=== PATIENT | male | born 1980 | race Caucasian/White ===

== ENCOUNTER 2020-10-03 09:55 | Outpatient (REF) | payer BC, SELFPAY ==
[2020-10-03 10:33] LABS: MANUAL DIFF FLAG NO
[2020-10-03 10:48] LABS: Basophils Absolute Auto 0.1 X10*3/uL (0.0-0.2); Basophils Percent Auto 0.9 % (0-2); Eosinophils Absolute Auto 0.1 X10*3/uL (0.0-0.4); Eosinophils Percent Auto 1.5 % (0-4); Hematocrit 41.5 % (42-52); Hemoglobin 14.2 g/dl (14.0-18.0); Imm Gran Abs Auto 0.01 X10*3/uL (0.00-0.03); Imm Gran Pct Auto 0.2 % (0.0-0.4); Lymphocytes Absolute Auto 2.4 X10*3/uL (1.2-4.9); Lymphocytes Percent Auto 40.7 % (20-40); Mean Corpuscular HGB Conc 34.2 g/dl (31.0-36.0); Mean Corpuscular Hemoglobin 32.1 pg (27.0-33.0); Mean Corpuscular Volume 93.9 fL (80-98); Monocytes Absolute Auto 0.4 X10*3/uL (0.1-1.2); Monocytes Percent Auto 6.2 % (2-11); Neutrophils Percent Auto 50.5 % (45-73); Platelet Count 113 X10*3/uL (160-400); Red Blood Count 4.42 X10*6/uL (4.60-5.80); Red Cell Distribution Width 12.1 % (11.0-16.0); White Blood Count 5.9 X10*3/uL (4.8-10.8)
[2020-10-03 10:50] LABS: Glucose Urine UA NEG (NEG); Leukocyte Esterase Urine NEG (NEG); Nitrite Urine NEG (NEG); Specific Gravity - Urine >= 1.030 (1.005-1.025); Urine Blood NEG (NEG); Urine Ketones NEG (NEG); Urine Protein NEG (NEG-TRACE)
[2020-10-03 10:53] LABS: Appearance Urine CLEAR; Color Urine YELLOW
[2020-10-03 11:01] LABS: Creatinine Urine 140.25 mg/dL; Microalbum/Creatinine Ratio Ur 7.8 ug/mg cr
[2020-10-03 11:05] LABS: Alanine Aminotransferase 23 U/L (0-40); Albumin Level 4.7 g/dL (3.5-5.0); Alkaline Phosphatase 72 U/L (39-117); Anion Gap 13 (12-20); Aspartate Amino Transferase 22 U/L (5-37); Bilirubin Total 0.8 mg/dL (0.0-1.0); Blood Urea Nitrogen 22 mg/dL (9-16); Calcium 9.2 mg/dL (8.4-10.2); Carbon Dioxide 27 mmol/L (22-29); Chloride 103 mmol/L (96-108); Cholesterol 168 mg/dL; Estimated Glomerular Filt Rate > 60; Glucose Fasting 111 mg/dL (60-99); HDL Cholesterol 44 mg/dL; LDL Cholesterol Calculated 94 mg/dl; Potassium 4.7 mmol/l (3.3-5.1); Sodium 138 mmol/L (135-145); Total Protein 7.7 g/dL (6.5-8.0); Triglycerides 150 mg/dL
[2020-10-03 11:14] LABS: Estimated Average Glucose 100 mg/dL; Hemoglobin A1c % 5.1 %
[2020-10-03 11:24] LABS: Reflex LDLD? No
== END 2020-10-03 09:56 | disposition home or self-care (01) ==
LOC: HO.LAB 09:55
PROVIDERS: PCP Internal Medicine; Visit Provider Internal Medicine
DX: Z00.00 Encounter for general adult medical examination without abnormal findings (principal); E78.00 Pure hypercholesterolemia, unspecified; R73.03 Prediabetes; D69.6 Thrombocytopenia, unspecified
CPT/HCPCS: 36415; 80053; 80061; 81003; 82043; 83036; 85025

== ENCOUNTER → 2020-12-02 12:43 | Outpatient (BNVA) | payer BC, SELFPAY | PROVIDERS: PCP Internal Medicine; Visit Provider Internal Medicine ==

== ENCOUNTER 2020-12-31 11:02 | Outpatient (REF) | payer BC, SELFPAY ==
[2020-12-31 12:20] LABS: Blood Urea Nitrogen 19 mg/dL (9-16); Estimated Glomerular Filt Rate > 60
== END 2020-12-31 11:03 | disposition home or self-care (01) ==
LOC: HO.LNP 11:02
PROVIDERS: Visit Provider Internal Medicine
DX: R79.9 Abnormal finding of blood chemistry, unspecified (principal)
CPT/HCPCS: 82565; 84520

== ENCOUNTER → 2021-01-29 12:54 | Outpatient (BNVA) | payer BC, SELFPAY | PROVIDERS: PCP Internal Medicine; Visit Provider Internal Medicine ==

== ENCOUNTER 2021-02-04 09:15 | Outpatient (REF) | payer BC, SELFPAY ==
[2021-02-04 10:42] LABS: Prostate Specific Antigen 0.52 ng/mL (<0.05-4.0)
[2021-02-04 10:44] LABS: Hematocrit 41.3 % (42-52); Hemoglobin 14.2 g/dl (14.0-18.0)
[2021-02-05 20:01] LABS: Follicle Stimulating Hormone 7.7 mIU/mL (1.6-8.0); Lutenizing Hormone 6.4 mIU/mL (1.5-9.3)
[2021-02-05 21:12] LABS: Sex Hormone Binding Globulin 15 nmol/L (10-50)
[2021-02-08 21:31] LABS: Estradiol Ultra Sensitive 18 pg/mL (< OR = 29)
[2021-02-14 17:21] LABS: Testosterone, Free 36.6 pg/mL (35.0-155.0); Testosterone, Total 142 ng/dL (250-1100)
== END 2021-02-04 09:16 | disposition home or self-care (01) ==
LOC: HO.LAB 09:15
PROVIDERS: PCP Internal Medicine; Visit Provider Internal Medicine
DX: Z12.5 Encounter for screening for malignant neoplasm of prostate (principal); E23.0 Hypopituitarism
CPT/HCPCS: 36415; 82670; 83001; 83002; 84153; 84270; 84402; 84403; 85014; 85018

== ENCOUNTER 2021-02-14 14:58 | Outpatient (REF) | payer BC, SELFPAY | END 2021-02-14 14:59 | disposition home or self-care (01) | LOC: HO.LNP 14:58 | PROVIDERS: Visit Provider Internal Medicine | DX: A09 Infectious gastroenteritis and colitis, unspecified (principal) | CPT/HCPCS: 87045; 87046 ==

== ENCOUNTER 2021-04-18 10:42 | Outpatient (REF) | payer BC, SELFPAY ==
[2021-04-18 11:04] LABS: Estimated Average Glucose 100 mg/dL; Hemoglobin A1c % 5.1 %
[2021-04-18 11:07] LABS: Alanine Aminotransferase 19 U/L (0-40); Albumin Level 4.5 g/dL (3.5-5.0); Alkaline Phosphatase 73 U/L (39-117); Aspartate Amino Transferase 20 U/L (5-37); Bilirubin Direct 0.2 mg/dL (0.0-0.5); Bilirubin Total 0.4 mg/dL (0.0-1.0); Blood Urea Nitrogen 20 mg/dL (9-16); Cholesterol 162 mg/dL; Estimated Glomerular Filt Rate > 60; Glucose Fasting 111 mg/dL (60-99); HDL Cholesterol 39 mg/dL; LDL Cholesterol Calculated 90 mg/dl; Total Protein 7.5 g/dL (6.5-8.0); Triglycerides 167 mg/dL
[2021-04-18 11:57] LABS: Reflex LDLD? No
== END 2021-04-18 10:43 | disposition home or self-care (01) ==
LOC: HO.LNP 10:42
PROVIDERS: Visit Provider Internal Medicine
DX: R73.03 Prediabetes (principal); R79.9 Abnormal finding of blood chemistry, unspecified; E78.00 Pure hypercholesterolemia, unspecified
CPT/HCPCS: 80061; 80076; 82565; 82947; 83036; 84520

== ENCOUNTER → 2021-05-26 07:45 | Outpatient (BNVA) | payer BC, SELFPAY | PROVIDERS: PCP Internal Medicine; Visit Provider Internal Medicine ==

== ENCOUNTER 2021-08-12 10:31 | Outpatient (REF) | payer BC, SELFPAY ==
[2021-08-12 11:10] LABS: Blood Urea Nitrogen 18 mg/dL (9-16); Estimated Glomerular Filt Rate > 60
== END 2021-08-12 10:32 | disposition home or self-care (01) ==
LOC: HO.LNP 10:31
PROVIDERS: PCP Internal Medicine; Visit Provider Internal Medicine
DX: R79.9 Abnormal finding of blood chemistry, unspecified (principal)
CPT/HCPCS: 82565; 84520

== ENCOUNTER 2021-12-05 10:49 | Outpatient (REF) | payer BC, SELFPAY ==
[2021-12-05 10:54] LABS: MANUAL DIFF FLAG NO
[2021-12-05 11:18] LABS: Basophils Absolute Auto 0.1 X10*3/uL (0.0-0.2); Basophils Percent Auto 1.3 % (0-2); Eosinophils Absolute Auto 0.2 X10*3/uL (0.0-0.4); Eosinophils Percent Auto 2.5 % (0-4); Hematocrit 42.1 % (42.0-52.0); Hemoglobin 14.2 g/dl (14.0-18.0); Imm Gran Abs Auto 0.01 X10*3/uL (0.00-0.03); Imm Gran Pct Auto 0.1 % (0.0-0.4); Lymphocytes Absolute Auto 2.9 X10*3/uL (1.2-4.9); Lymphocytes Percent Auto 40.8 % (20-40); Mean Corpuscular HGB Conc 33.7 g/dl (31.0-36.0); Mean Corpuscular Hemoglobin 30.7 pg (27.0-33.0); Mean Corpuscular Volume 91.1 fL (80.0-98.0); Mean Platelet Volume 12.8 fL (9.4-12.4); Monocytes Absolute Auto 0.4 X10*3/uL (0.1-1.2); Monocytes Percent Auto 5.6 % (2-11); Neutrophils Absolute Auto 3.6 x10*3/uL (2.0-8.3); Neutrophils Percent Auto 49.7 % (45-73); Platelet Count 154 X10*3/uL (160-400); Red Blood Count 4.62 X10*6/uL (4.60-5.80); Red Cell Distribution Width 12.3 % (11.0-16.0); White Blood Count 7.2 X10*3/uL (4.8-10.8)
[2021-12-05 11:30] LABS: Appearance Urine CLEAR; Color Urine YELLOW; Glucose Urine UA NEG (NEG); Leukocyte Esterase Urine NEG (NEG); Nitrite Urine NEG (NEG); Specific Gravity - Urine >= 1.030 (1.005-1.025); Urine Blood NEG (NEG); Urine Ketones NEG (NEG); Urine Protein NEG (NEG-TRACE)
[2021-12-05 11:38] LABS: Alanine Aminotransferase 28 U/L (0-40); Albumin Level 4.3 g/dL (3.5-5.0); Alkaline Phosphatase 79 U/L (39-117); Anion Gap 10 (12-20); Aspartate Amino Transferase 24 U/L (5-37); Bilirubin Total 0.6 mg/dL (0.0-1.0); Blood Urea Nitrogen 15 mg/dL (9-16); Calcium 9.1 mg/dL (8.4-10.2); Carbon Dioxide 27 mmol/L (22-29); Chloride 105 mmol/L (96-108); Cholesterol 201 mg/dL; Estimated Glomerular Filt Rate > 60; Glucose Fasting 131 mg/dL (60-99); HDL Cholesterol 36 mg/dL; LDL Cholesterol Calculated 126 mg/dl; Potassium 4.2 mmol/L (3.3-5.1); Sodium 138 mmol/L (135-145); Total Protein 7.2 g/dL (6.5-8.0); Triglycerides 197 mg/dL
[2021-12-05 12:36] LABS: Estimated Average Glucose 120 mg/dL; Hemoglobin A1c % 5.8 %
[2021-12-05 12:38] LABS: Microalbum/Creatinine Ratio Ur 10.6 ug/mg cr
== END 2021-12-05 10:50 | disposition home or self-care (01) ==
LOC: HO.LNP 10:49
PROVIDERS: Visit Provider Internal Medicine
DX: Z00.00 Encounter for general adult medical examination without abnormal findings (principal); E78.00 Pure hypercholesterolemia, unspecified; E78.2 Mixed hyperlipidemia; R73.03 Prediabetes; D69.6 Thrombocytopenia, unspecified
CPT/HCPCS: 80053; 80061; 81003; 82043; 83036; 85025

== ENCOUNTER 2022-07-22 10:14 | Emergency (ER) | payer SELFPAY ==
--- NOTE | ~2022-07-22 | CT_ITS ---
EXAMINATION: CT HEAD WITHOUT CONTRAST CLINICAL INFORMATION: Headache. COMPARISON: Brain MRI 11/07/2019. TECHNIQUE: Contiguous axial imaging was performed from the skull base to vertex without intravenous administration of contrast. This CT examination was performed using dose optimization techniques as appropriate, variously including the following: *Automated exposure control *Adjustment of mA and/or kV according to patient size (this includes techniques or standardized protocols for targeted exams where dose is matched to indication/reason for exam; i.e. extremities or head) *Use of iterative reconstruction technique DLP: 827 mGy-cm FINDINGS: There is no acute intracranial hemorrhage or abnormal extra-axial collection. No intracranial mass effect or midline shift. Lateral and third ventricles are normal. No hydrocephalus. Gibbs-white matter projection is preserved and there is no evidence of acute territorial infarct. The calvarium and skull base are intact. Mastoid air cells and middle ear cavities are well aerated. No active paranasal sinus disease. CT/CT head/brain wo IV con IMPRESSION: Normal CT scan of the head.
[2022-07-22 10:50] VITALS: BP 131/86; PULSE 61; RESP 16; TEMP 36.3; O2SAT 97; BMI 39.9
[2022-07-22 11:03] LABS: Hematocrit 40.7 % (42.0-52.0); Mean Corpuscular HGB Conc 34.4 g/dl (31.0-36.0); Mean Corpuscular Hemoglobin 30.5 pg (27.0-33.0); Mean Corpuscular Volume 88.7 fL (80.0-98.0); Mean Platelet Volume 12.3 fL (9.4-12.4); Platelet Count 133 X10*3/uL (160-400); Red Blood Count 4.59 X10*6/uL (4.60-5.80); Red Cell Distribution Width 12.1 % (11.0-16.0); White Blood Count 8.1 X10*3/uL (4.8-10.8)
[2022-07-22 11:17] LABS: Anion Gap 14 (12-20); Blood Urea Nitrogen 12 mg/dL (9-16); Calcium 9.1 mg/dL (8.4-10.2); Carbon Dioxide 25 mmol/L (22-29); Chloride 104 mmol/L (96-108); Creatinine Clr Calc Pharmacy 159.1; Estimated Glomerular Filt Rate > 60; Glucose Random 127 mg/dL (60-115); Potassium 4.8 mmol/L (3.3-5.1); Sodium 138 mmol/L (135-145)
--- NOTE | 2022-07-22 15:07 | ED.HA ---
HPI - Headache General Chief Complaint: Headache Stated Complaint: Headache High Blood Pressure Time Seen by Provider: 07/22/22 15:05 Source: patient Mode of arrival: ambulatory Limitations: no limitations History of Present Illness HPI Narrative: Patient is a 42-year-old male with a PMHx of pituitary adenoma who presents to the ED with his for evaluation recurrent headaches. He states he gradually developed a pressure-like headache last week Wednesday that has not resolved since. He tells me he has been waking up with these headaches every morning and has taken Tylenol and Motrin which resolves his headache for most of the day until it returns the next morning. He reports a history of these headaches in the past and denies any changes in the character of his recent headaches, however is concerned that these headaches are not resolving as fast as they normally do. He went to his PCP on Wednesday who gave him Imitrex, which he tried without relief. His reports giving him a dose of her Excedrin which helped his symptoms. He reports some mild photophobia with his current headache and one episode of vomiting at the onset of the PACHECO. He denies any head injury, LOC, dizziness, weakness, CP, SOB, abdominal pain, N/V/D, urinary/bowel incontinence, and changes in gait. Pt also reports having some elevated BP readings at his workplace prior to his arrival here today. He denies any previous history of a HTN diagnosis. Related Data Home Medications Medication Instructions Recorded Confirmed atorvastatin 10 mg tablet 10 mg PO DAILY 12/02/20 05/26/21 citalopram 10 mg tablet 10 mg PO DAILY 05/26/21 05/26/21 Allergies Allergy/AdvReac Type Severity Reaction Status Date / Time No Known Allergies Allergy Verified 05/26/21 08:17 Review of Systems Review of Systems: Yes all other systems are reviewed and are negative Constitutional: Constitutional: Reports no additional constitutional complaints, Denies body ache(s), Denies chills, Denies fatigue, Denies fever(s), Reports headache(s) and Denies weakness Eyes: Eyes: Reports no additional eye complaints, Denies change in vision, Denies diplopia, Denies loss of peripheral vision, Denies loss of vision and Reports photophobia ENT: Reports system reviewed and no additional complaints, except as documented, Denies dizziness, Reports headache(s), Denies nasal congestion, Denies nasal discharge, Denies neck pain and Denies disequilibrium Cardiovascular: Cardiovascular: Reports no additional cardiovascular complaints, Denies chest pain, Denies leg edema and Denies dyspnea Respiratory: Respiratory: Reports no additional respiratory complaints, Denies cough and Denies dyspnea Gastrointestinal: Gastrointestinal: Reports no additional gastrointestinal complaints, Denies abdominal pain, Denies diarrhea, Denies nausea and Reports vomiting (one episode) Genitourinary: Genitourinary: Denies urinary incontinence Musculoskeletal: Musculoskeletal: Reports no additional musculoskeletal complaints, Denies back pain, Denies arthralgias, Denies joint swelling, Denies neck pain, Denies numbness and Denies tingling Integumentary/Breasts: Skin/Breast: Reports system reviewed and no additional complaints, except as docu and Denies rash Neurologic: Reports system reviewed and no additional complaints, except as documented, Denies Abnormal speech present, Denies dizziness, Reports headache(s), Denies focal weakness, Denies loss of vision, Denies numbness, Denies tingling, Denies paresthesias, Denies disequilibrium and Denies weakness Endocrine: Endocrine: Denies fatigue PMFSH Past Medical History Attestation statement: The following information was validated with the patient. Source: old records reviewed and nursing notes reviewed Medical History Gynecomastia Hypogonadotropic hypogonadism Pituitary adenoma Surgical History Hx of foot surgery Hx of hernia repair Hx of removal of cyst Family History Family History Father Unknown family medical history Mother Breast cancer Stroke Social History Social History Household Members: Family Alcohol intake: current Alcohol intake frequency: holidays/special occasions only Patient Tobacco Use Status: Never used Tobacco Advance Directives: No Advance Directives Information Provided: Yes Physical Exam Vital Signs: Vital Signs: Last Vital Signs Temp 98.8 F 07/22/22 15:08 Pulse 62 07/22/22 15:08 Resp 18 07/22/22 15:08 BP 144/83 H 07/22/22 15:08 Pulse Ox 98 07/22/22 15:08 O2 Del Method 07/22/22 15:08 BMI result Body Mass Index 39.9 Const: General: cooperative, healthy appearing, comfortable and no acute distress Orientation/consciousness: patient oriented x3 Limitations: no limitations HEENT: Head: Yes normal to inspection Ears: hearing grossly normal bilaterally and TM's normal bilaterally General nose exam: Normal external nose present Face and sinus: Yes normal facial exam Mouth: Normal oral and palatal mucosa present Throat: Yes posterior oropharynx normal Eyes: General: appearance normal, both eyes and all related structures Pupils: Equal, round and reactive pupils present Direct Ophthalmoscopy: photophobia Neck: Neck: Yes normal visual inspection, Yes full ROM, Yes no lymphadenopathy and Yes no meningeal signs Chest: Chest palpation & inspection: normal inspection of the chest Resp: Effort & Inspection: normal respiratory effort Auscultation: clear to auscultation bilaterally Cardio: Rate: regular rate Rhythm: regular rhythm Peripheral pulses: Peripheral pulses 2+ throughout GI: Inspection: Yes normal to inspection Palpation (GI): Soft to palpation and nontender Auscultation: normal bowel sounds Back/Spine/Pelvis: Thoracic/Lumbar Spine: thoracic and lumbar spine normal to inspection Skin: General skin exam: no rashes or lesions noted Neuro: General: patient oriented x3, no meningeal signs, no focal motor deficits and normal sensation to monofilament Cranial nerves: Yes CN's II-XII intact bilaterally, Yes Equal, round and reactive pupils present, Yes Nystagmus not present, Yes Midline tongue present and Yes Ability to bilaterally elevate shoulders present Cognition (Neuro): normal cognition Speech: No Abnormal speech present Gait exam (Neuro): Normal gait present Motor exam (neuro): 5/5 motor strength present throughout Sensory Exam: Normal double simultaneous stimulation for sensation Coordination: [id number] test normal and does not sway with eyes open Romberg Test: Negative Extrem: General: Yes normal to inspection Course Reevaluation(s) Reevaluation #1: Head CT negative for any acute findings, discussed findings with pt. Pt PACHECO resolved after receiving fluids and meds. Discussed with pt that symptoms and episode of elevated BP likely due to migraine and pain. Discussed avoiding migraine triggers such as stress, dehydration, foods and staying hydrated and well rested. Discussed taking Imitrex at the onset of his headaches for maximum effect. Pt tells me that he has an appointment with his PCP tomorrow, advised keeping that appointment and seeing them tomorrow for follow up. Time: 17:00 Medications Administered Discontinued Medications Generic Name Dose Route Start Last Admin Trade Name Mejia PRN Reason Stop Dose Admin Diphenhydramine HCl 25 mg 07/22/22 15:23 07/22/22 15:53 Diphenhydramine Hcl 50 Mg/Ml Vial IVPUSH 07/22/22 15:24 25 mg ONCE ONE Administration Sodium Chloride 2,000 mls @ 999 mls/hr 07/22/22 15:23 07/22/22 18:11 Ns IV 07/22/22 17:23 Infused .Q2H1M STA Infusion Ketorolac Tromethamine 30 mg 07/22/22 15:23 07/22/22 15:51 Ketorolac Tromethamine 30 Mg/Ml Vial IVPUSH 07/22/22 15:24 30 mg ONCE ONE Administration Metoclopramide HCl 10 mg 07/22/22 15:23 07/22/22 15:56 Metoclopramide Hcl 10 Mg/2 Ml Vial IVPUSH 07/22/22 15:24 10 mg ONCE ONE Administration MDM - Headache MDM Narrative Medical decision making narrative: Patient is a 42-year-old male with a PMHx of a premature and a pituitary adenoma who presents to the ED with his for evaluation recurrent headaches. He also reports having elevated BP readings prior to his arrival here. His last 2 BP readings here are 131/86 and 144/83. Pt has no hx of HTN, elevated readings most likely secondary to pain. Otherwise vital signs are WNL. PE benign. No focal neuro deficits noted. CBC and CMP WNL. History and exam not consistent with CVA, SAH, pseudotumor cerebrai, and meningitis. Given that the pt has been consistently waking every morning with these HAs, will order CT of head w/o contrast to r/o new mass/malignancy. History consistent with migraines, will give 2L of fluids with Reglan, Benadryl, and Toradol for symptoms. Will reassess symptoms after treatment and imaging. Medical Records Attestation: I reviewed the patient's medical records. Lab Data Attestation: I reviewed the patient's lab results. Result diagrams: 07/22/22 10:56 07/22/22 10:56 Labs: Lab Results 07/22/22 07/22/22 Range/Units 10:56 10:56 WBC 8.1 (4.8-10.8) X10*3/uL RBC 4.59 L (4.60-5.80) X10*6/uL Hgb 14.0 (14.0-18.0) g/dl Hct 40.7 L (42.0-52.0) % MCV 88.7 (80.0-98.0) fL MCH 30.5 (27.0-33.0) pg MCHC 34.4 (31.0-36.0) g/dl RDW 12.1 (11.0-16.0) % Plt Count 133 L (160-400) X10*3/uL MPV 12.3 (9.4-12.4) fL Absolute Nucleated RBC 0.000 (0.0-0.012) X10*3/uL Nucleated RBC % (auto) 0.0 (0.0-0.2) /100WBC Sodium 138 (135-145) mmol/L Potassium 4.8 (3.3-5.1) mmol/L Chloride 104 (96-108) mmol/L Carbon Dioxide 25 (22-29) mmol/L Anion Gap 14 (12-20) BUN 12 (9-16) mg/dL Creatinine 0.75 (0.5-1.4) mg/dL Estim Creat Clear Calc 159.1 Estimated GFR > 60 Random Glucose 127 H (60-115) mg/dL Calcium 9.1 (8.4-10.2) mg/dL Imaging Data CT scan - head: Attestation: I personally reviewed and interpreted this imaging study as follows: Radiologist's impression: [address] [address] [address] Scan Report Signed Patient: Kenny Mccormick MR#: [id number] : 1980 Acct:[id number] Age/Sex: 42 / M ADM Date: 07/22/22 Loc: .ED Attending Dr: Ordering Physician: Keyana Jenkins NP Date of Service: 07/22/22 Procedure(s): CT head/brain wo IV con Accession Number(s): [id number] cc: Keyana Jenkins NP~ EXAMINATION: CT HEAD WITHOUT CONTRAST CLINICAL INFORMATION: Headache.? COMPARISON: Brain MRI 11/07/2019. TECHNIQUE: Contiguous axial imaging was performed from the skull base to vertex without intravenous administration of contrast. This CT examination was performed using dose optimization techniques as appropriate, variously including the following: *Automated exposure control *Adjustment of mA and/or kV according to patient size (this includes techniques or standardized protocols for targeted exams where dose is matched to indication/reason for exam; i.e. extremities or head) *Use of iterative reconstruction technique DLP: 827 mGy-cm FINDINGS: There is no acute intracranial hemorrhage or abnormal extra-axial collection. No intracranial mass effect or midline shift. Lateral and third ventricles are normal. No hydrocephalus. Gibbs-white matter projection is preserved and there is no evidence of acute territorial infarct. The calvarium and skull base are intact. Mastoid air cells and middle ear cavities are well aerated. No active paranasal sinus disease. ? CT/CT head/brain wo IV con IMPRESSION: Normal CT scan of the head. Discharge Plan Discharge Clinical Impression: Migraine Patient Disposition: Home, Self-Care Additional Instructions: Avoid migraine triggers Increase fluids at home Get plenty of rest Avoid stress Keep your appointment tomorrow with your primary care doctor Take the Imitrex within 1 hour of headache developing Return for any worsening symptoms Prescriptions: No Action atorvastatin 10 mg tablet 10 mg PO DAILY citalopram 10 mg tablet 10 mg PO DAILY Referrals: Waldo Fabian MD [Primary Care Provider] - 1 day Interventions: ED Discharge Assessment Last Done: 07/22/22 18:12 Discharge Date/Time: 07/22/22 18:13
[2022-07-22 15:08] VITALS: BP 144/83; PULSE 62; RESP 18; TEMP 37.1; O2SAT 98
[2022-07-22] MEDS: Ketorolac Tromethamine 30 MG/ML VIAL IVPUSH (15:51)
[2022-07-22] MEDS: diphenhydrAMINE HCL 50 MG/ML VIAL 25 MG IVPUSH (15:53)
[2022-07-22] MEDS: Metoclopramide HCl 10 MG/2 ML VIAL IVPUSH (15:56)
[2022-07-22] MEDS: 0.9 % Sodium Chloride 2,000 ML 999 ML IV (16:04)
== END 2022-07-22 18:13 | disposition home or self-care (01) ==
PROVIDERS: Internal Medicine; Emergency Provider Emergency Medicine; PCP Internal Medicine
DX: G43.909 Migraine, unspecified, not intractable, without status migrainosus (principal); I10 Essential (primary) hypertension; Z79.899 Other long term (current) drug therapy
CPT/HCPCS: 36415; 70450; 80048; 85027; 96361; 96374; 96375; 99284; J1200; J1885; J2765

== ENCOUNTER 2022-08-28 10:46 | Outpatient (REF) | payer SELFPAY ==
[2022-08-28 12:05] LABS: Estimated Average Glucose 117 mg/dL; Hemoglobin A1c % 5.7 %
[2022-08-28 14:10] LABS: Alanine Aminotransferase 32 U/L (0-31); Albumin Level 4.3 g/dL (3.5-5.0); Alkaline Phosphatase 83 U/L (39-117); Aspartate Amino Transferase 28 U/L (5-31); Bilirubin Direct 0.2 mg/dL (0.0-0.5); Bilirubin Total 0.7 mg/dL (0.0-1.0); Cholesterol 166 mg/dL; Glucose Fasting 138 mg/dL (60-99); HDL Cholesterol 34 mg/dL; LDL Cholesterol Calculated 96 mg/dl; Total Protein 7.1 g/dL (6.5-8.0); Triglycerides 184 mg/dL
[2022-08-28 15:02] LABS: Reflex LDLD? No
== END 2022-08-28 10:47 | disposition home or self-care (01) ==
LOC: HO.LNP 10:46
PROVIDERS: Visit Provider Internal Medicine
DX: E78.00 Pure hypercholesterolemia, unspecified (principal); R73.03 Prediabetes
CPT/HCPCS: 80061; 80076; 82947; 83036

== ENCOUNTER 2022-12-15 11:38 | Outpatient (REF) | payer OTHER, SELFPAY ==
[2022-12-15 11:43] LABS: MANUAL DIFF FLAG NO
[2022-12-15 12:05] LABS: Basophils Absolute Auto 0.1 X10*3/uL (0.0-0.2); Basophils Percent Auto 1.2 % (0-2); Eosinophils Absolute Auto 0.3 X10*3/uL (0.0-0.4); Eosinophils Percent Auto 3.1 % (0-4); Hematocrit 41.7 % (42.0-52.0); Hemoglobin 14.1 g/dl (14.0-18.0); Imm Gran Abs Auto 0.02 X10*3/uL (0.00-0.03); Imm Gran Pct Auto 0.2 % (0.0-0.4); Lymphocytes Absolute Auto 2.9 X10*3/uL (1.2-4.9); Lymphocytes Percent Auto 33.9 % (20-40); Mean Corpuscular HGB Conc 33.8 g/dl (31.0-36.0); Mean Corpuscular Hemoglobin 30.5 pg (27.0-33.0); Mean Corpuscular Volume 90.1 fL (80.0-98.0); Monocytes Absolute Auto 0.5 X10*3/uL (0.1-1.2); Monocytes Percent Auto 5.6 % (2-11); Neutrophils Absolute Auto 4.7 x10*3/uL (2.0-8.3); Platelet Count 126 X10*3/uL (160-400); Red Blood Count 4.63 X10*6/uL (4.60-5.80); Red Cell Distribution Width 12.4 % (11.0-16.0); White Blood Count 8.4 X10*3/uL (4.8-10.8)
[2022-12-15 12:13] LABS: Estimated Average Glucose 126 mg/dL
[2022-12-15 12:21] LABS: Appearance Urine Clear; Color Urine Yellow; Glucose Urine UA Negative (Negative); Leukocyte Esterase Urine Negative (Negative); Nitrite Urine Negative (Negative); PH 5.5 (5.0-9.0); Urine Blood Negative (Negative); Urine Ketones Negative (Negative); Urine Protein Negative (Neg-Trace)
[2022-12-15 12:26] LABS: Bacteria Urine None Seen (None Seen); Hyaline Casts Urine 0-2 /LPF (0-2); RBC Urine 0-2 /HPF (0-2); Squamous Epithelial Cell Urine 0-2 /HPF (0-2); WBC Urine 0-5 /HPF (0-5)
[2022-12-15 12:28] LABS: Alanine Aminotransferase 34 U/L (0-40); Albumin Level 4.1 g/dL (3.5-5.0); Alkaline Phosphatase 94 U/L (39-117); Anion Gap 13 (12-20); Aspartate Amino Transferase 26 U/L (5-37); Bilirubin Total 0.4 mg/dL (0.0-1.0); Blood Urea Nitrogen 17 mg/dL (9-16); Calcium 8.9 mg/dL (8.4-10.2); Carbon Dioxide 24 mmol/L (22-29); Chloride 105 mmol/L (96-108); Cholesterol 167 mg/dL; Estimated Glomerular Filt Rate > 60; Glucose Fasting 130 mg/dL (60-99); HDL Cholesterol 34 mg/dL; LDL Cholesterol Calculated 79 mg/dl; PSA,Total (Free>4and<10) 0.46 ng/mL (0.00-4.00); Potassium 4.3 mmol/L (3.3-5.1); Sodium 138 mmol/L (135-145); Triglycerides 272 mg/dL
[2022-12-15 12:37] LABS: Creatinine Urine 121.45 mg/dL; Microalbum/Creatinine Ratio Ur 7.4 ug/mg cr
[2022-12-21 15:48] LABS: Testosterone, Free 20.1 pg/mL (35.0-155.0); Testosterone, Total 74 ng/dL (250-1100)
== END 2022-12-15 11:39 | disposition home or self-care (01) ==
LOC: HO.LNP 11:38
PROVIDERS: Visit Provider Internal Medicine
DX: Z00.00 Encounter for general adult medical examination without abnormal findings (principal); E78.00 Pure hypercholesterolemia, unspecified; R73.03 Prediabetes; E29.1 Testicular hypofunction; D69.6 Thrombocytopenia, unspecified; Z12.5 Encounter for screening for malignant neoplasm of prostate
CPT/HCPCS: 80053; 80061; 81001; 82043; 83036; 84153; 84402; 84403; 85025

== ENCOUNTER 2023-01-21 10:25 | Outpatient (REF) | payer SELFPAY ==
[2023-01-21 10:27] LABS: MANUAL DIFF FLAG NO
[2023-01-21 10:55] LABS: Basophils Absolute Auto 0.1 X10*3/uL (0.0-0.2); Basophils Percent Auto 1.3 % (0-2); Eosinophils Absolute Auto 0.2 X10*3/uL (0.0-0.4); Eosinophils Percent Auto 2.4 % (0-4); Imm Gran Abs Auto 0.02 X10*3/uL (0.00-0.03); Imm Gran Pct Auto 0.3 % (0.0-0.4); Lymphocytes Absolute Auto 3.1 X10*3/uL (1.2-4.9); Lymphocytes Percent Auto 39.5 % (20-40); Mean Corpuscular HGB Conc 34.1 g/dl (31.0-35.0); Mean Corpuscular Hemoglobin 30.6 pg (27.0-33.0); Mean Corpuscular Volume 89.7 fL (80.0-98.0); Mean Platelet Volume 12.9 fL (9.4-12.3); Monocytes Absolute Auto 0.5 X10*3/uL (0.1-1.2); Monocytes Percent Auto 6.7 % (2-11); Neutrophils Percent Auto 49.8 % (45-73); Platelet Count 152 X10*3/uL (160-400); Red Blood Count 4.57 X10*6/uL (4.20-5.50); Red Cell Distribution Width 12.4 % (11.0-16.0); White Blood Count 7.9 X10*3/uL (4.8-10.8)
== END 2023-01-21 10:26 | disposition home or self-care (01) ==
LOC: HO.LNP 10:25
PROVIDERS: Visit Provider Internal Medicine
DX: D69.6 Thrombocytopenia, unspecified (principal)
CPT/HCPCS: 85025

== ENCOUNTER → 2023-02-03 15:49 | Outpatient (BNVA) | payer OTHER, SELFPAY | PROVIDERS: PCP Internal Medicine; Visit Provider Internal Medicine Endocrinology, Diabetes & Metabolism ==

== ENCOUNTER 2023-04-15 15:58 | Outpatient (AMB) | payer OTHER, SELFPAY ==
--- NOTE | 2023-04-15 16:01 | MHC.OFFVIS ---
Intake Vital Signs 04/15/23 16:03 Height 5 ft 7 in Weight 272 lb 4.334 oz BMI 42.6 BP 110/62 Blood Pressure Location Lt femoral Position Sitting Pulse 80 Intake Visit Reasons: Hypogonadism Intake Note: Patient present for Hypogonadism follow up visit. 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 He was initially referred to us due to gynecomastia. Full lab eval revealed hypogonadotropic hypogonadism. At that time he did report difficulty conceiving for a few years. Did have semen analysis which he reports revealed low sperm counts. We discussed the diagnosis of hypogonadism, and the need for pituitary MRI as well as sleep study and full pituitary lab panel. These were all ordered, but he was subsequently lost to F/U. He then re-established care in late Sep 2019. Full Pituitary panel was assessed which revealed low am cortisol, and also hypogonadotropic hypogonadism. Labs 10/26/2019 ACTH 18, Cortisol 9.4, FS 5.1, LH 5.3, Total Testosterone 76, Free Testosterone 19.3. He underwent a cosyntropin stimulation test which was WNL with appropriate response. He subsequently had a pituitary MRI which revealed asymmetric pneumatization of the sphenoid sinus with asymmetric left downsloping of the pituitary gland, and deviation of the infundibulum slightly to the left. There was also deviation of the optic chiasm to the left. It appeared this pathology had been present since 2009. He was referred for formal visual field testing and also to Neurosurgeon Dr. Smitha Zimmer. Formal visual taylor were WNL, and Neurosurgery recommended no surgical intervention, and just surveillance MRI yearly. Repeat labs reveal low Total testosterone, with low normal SHBG, and Free testosterone WNL, though low normal. He reports good libido. Does have am erection and is able to achieve erection when desired. Unsure if he has RUPA. I did ask him to have a sleep study but he has not done this as of yet. Reports good sense of smell. He is not using any OTC supplements or herbs. Otherwise he has no complaints today. Pituitary MRI 11/07/2019: On the focused imaging of the sella, the floor of the bony sella is slightly downward and to the left secondary to asymmetric pneumatization of the sphenoid sinus. This results in some asymmetric left downsloping of the pituitary gland, and deviation of the infundibulum slightly to the left. This morphology is noted on the prior exams, as far back as 2009, and is not changed. No hypoenhancing lesions are seen within the substance of the pituitary gland to suggest underlying adenoma. The optic chiasm is also slightly deviated to the left. The suprasellar cistern is otherwise unremarkable. The cavernous sinuses are patent. Labs: Laboratory Tests 02/04/21 02/04/21 02/04/21 09:22 09:22 09:22 Hgb 14.2 Hct 41.3 L Creatinine Estimated GFR Triglycerides Cholesterol LDL Cholesterol, C alc HDL Cholesterol Prostate Specific Ag 0.52 FSH 7.7 Luteinizing Hormon e 6.4 Total Testosterone 142 L Fr Testosterone Di elly 36.6 Sex Hormone Bind G lob 15 04/18/21 Unknown Hgb Hct Creatinine 0.85 Estimated GFR > 60 Triglycerides 167 Cholesterol 162 LDL Cholesterol, C alc 90 HDL Cholesterol 39 Prostate Specific Ag FSH Luteinizing Hormon e Total Testosterone Fr Testosterone Di elly Sex Hormone Bind G lob More recently, his testosterone level 74 . No loss of libido. Some energy loss, Does snore but has sleep study next mo. No children. Not looking to father children . No osteoporotic fx Was diagnosed with sleep apnea . [facility] Medical History Gynecomastia Hypogonadotropic hypogonadism Pituitary adenoma Surgical History Hx of foot surgery Hx of hernia repair Hx of removal of cyst Family History Father Unknown family medical history Mother Breast cancer Stroke Social History Household Members: Family Alcohol intake: current Alcohol intake frequency: holidays/special occasions only Patient Tobacco Use Status: Never used Tobacco Physical Exam Vital Signs: Last Vital Signs Pulse 80 04/15/23 16:03 BP 110/62 04/15/23 16:03 BMI result Body Mass Index 42.6 Assessment & Plan Assessment & Plan (1) Hypogonadotropic hypogonadism: Code(s): E23.0 - Hypopituitarism Plan: This is a 42-year-old male with a history of secondary hypogonadism and gynecomastia with workup revealing structural pituitary problems but no mass. Plan is to check a ferritin level to complete the secondary workup rule out hemochromatosis. Discussed with patient testosterone replacement including use of oral versus transdermal versus intramuscular. Will also wait for patient to get placed on CPAP and bring a copy of the sleep study to me and then will return for possible initiation of testosterone Orders: Orders Ferritin Today E23.0 - Hypopituitarism Coding Level of Care Code Est Pt Level 3 (27761) Diagnoses Hypogonadotropic hypogonadism E23.0
[2023-04-15 16:03] VITALS: BP 110/62; PULSE 80; BMI 42.6
== END 2023-04-15 16:24 | disposition home or self-care (01) ==
PROVIDERS: PCP Internal Medicine; Visit Provider Internal Medicine Endocrinology, Diabetes & Metabolism
DX: E23.0 Hypopituitarism (principal)
CPT/HCPCS: 99213

== ENCOUNTER → 2023-04-15 15:58 | Outpatient (BNVA) | payer OTHER, SELFPAY | PROVIDERS: Visit Provider Internal Medicine Endocrinology, Diabetes & Metabolism ==

== ENCOUNTER 2023-05-21 08:12 | Outpatient (REF) | payer OTHER, SELFPAY ==
[2023-05-21 10:37] LABS: Ferritin 297 ng/mL (20-250)
== END 2023-05-21 08:13 | disposition home or self-care (01) ==
LOC: HO.LAB 08:12
PROVIDERS: PCP Internal Medicine; Visit Provider Internal Medicine Endocrinology, Diabetes & Metabolism
DX: E23.0 Hypopituitarism (principal)
CPT/HCPCS: 36415; 82728

== ENCOUNTER 2023-05-27 15:29 | Outpatient (AMB) | payer OTHER, SELFPAY ==
--- NOTE | 2023-05-27 15:30 | MHC.OFFVIS ---
Intake Vital Signs 05/27/23 15:31 Height 5 ft 7 in Weight 271 lb 13.279 oz BMI 42.6 BP 102/72 Blood Pressure Location Lt brachial Position Sitting Pulse 62 Pulse Source Pulse Oximeter Intake Visit Reasons: f/u hypogonadism/Confirmed Intake Note: Patient present for hypogonadism follow up visit. 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 He was initially referred to us due to gynecomastia. Full lab eval revealed hypogonadotropic hypogonadism. At that time he did report difficulty conceiving for a few years. Did have semen analysis which he reports revealed low sperm counts. We discussed the diagnosis of hypogonadism, and the need for pituitary MRI as well as sleep study and full pituitary lab panel. These were all ordered, but he was subsequently lost to F/U. He then re-established care in late Sep 2019. Full Pituitary panel was assessed which revealed low am cortisol, and also hypogonadotropic hypogonadism. Labs 10/26/2019 ACTH 18, Cortisol 9.4, FS 5.1, LH 5.3, Total Testosterone 76, Free Testosterone 19.3. He underwent a cosyntropin stimulation test which was WNL with appropriate response. He subsequently had a pituitary MRI which revealed asymmetric pneumatization of the sphenoid sinus with asymmetric left downsloping of the pituitary gland, and deviation of the infundibulum slightly to the left. There was also deviation of the optic chiasm to the left. It appeared this pathology had been present since 2009. He was referred for formal visual field testing and also to Neurosurgeon Dr. Smitha Zimmer. Formal visual taylor were WNL, and Neurosurgery recommended no surgical intervention, and just surveillance MRI yearly. Repeat labs reveal low Total testosterone, with low normal SHBG, and Free testosterone WNL, though low normal. He reports good libido. Does have am erection and is able to achieve erection when desired. Unsure if he has RUPA. I did ask him to have a sleep study but he has not done this as of yet. Reports good sense of smell. He is not using any OTC supplements or herbs. Otherwise he has no complaints today. Pituitary MRI 11/07/2019: On the focused imaging of the sella, the floor of the bony sella is slightly downward and to the left secondary to asymmetric pneumatization of the sphenoid sinus. This results in some asymmetric left downsloping of the pituitary gland, and deviation of the infundibulum slightly to the left. This morphology is noted on the prior exams, as far back as 2009, and is not changed. No hypoenhancing lesions are seen within the substance of the pituitary gland to suggest underlying adenoma. The optic chiasm is also slightly deviated to the left. The suprasellar cistern is otherwise unremarkable. The cavernous sinuses are patent. Labs: Laboratory Tests 02/04/21 02/04/21 02/04/21 09:22 09:22 09:22 Hgb 14.2 Hct 41.3 L Creatinine Estimated GFR Triglycerides Cholesterol LDL Cholesterol, C alc HDL Cholesterol Prostate Specific Ag 0.52 FSH 7.7 Luteinizing Hormon e 6.4 Total Testosterone 142 L Fr Testosterone Di elly 36.6 Sex Hormone Bind G lob 15 04/18/21 Unknown Hgb Hct Creatinine 0.85 Estimated GFR > 60 Triglycerides 167 Cholesterol 162 LDL Cholesterol, C alc 90 HDL Cholesterol 39 Prostate Specific Ag FSH Luteinizing Hormon e Total Testosterone Fr Testosterone Di elly Sex Hormone Bind G lob More recently, his testosterone level 74 . No loss of libido. Some energy loss, Does snore but has sleep study next mo. No children. Not looking to father children . No osteoporotic fx Was diagnosed with sleep apnea . [facility] Medical History Gynecomastia Hypogonadotropic hypogonadism Pituitary adenoma Surgical History Hx of foot surgery Hx of hernia repair Hx of removal of cyst Family History Father Unknown family medical history Mother Breast cancer Stroke Social History Household Members: Family Alcohol intake: current Alcohol intake frequency: holidays/special occasions only Patient Tobacco Use Status: Never used Tobacco Physical Exam Vital Signs: BMI result Body Mass Index 42.6 Assessment & Plan Assessment & Plan (1) Hypogonadotropic hypogonadism: Code(s): E23.0 - Hypopituitarism Plan: This is a 42-year-old male with a history of secondary hypogonadism and gynecomastia with workup revealing structural pituitary problems but no mass. Plan is to start intramuscular testosterone 100 mg Q weekly. Will try to get approval for subcutaneous testosterone Xyosted at same dose but if can not will do the intramuscular testosterone. One start testosterone will get peak and trough testosterone and CBC 6 weeks later. Went over side effects of testosterone including but not limited to DVT, polycythemia and rare risk of unmasking prostate cancer Orders: Orders Testosterone, Free/Total 6 Weeks E23.0 - Hypopituitarism Hematocrit 6 Weeks E23.0 - Hypopituitarism Testosterone, Free/Total 7 Weeks E23.0 - Hypopituitarism Hemoglobin 6 Weeks E23.0 - Hypopituitarism Medications: New testosterone enanthate (Xyosted) 100 mg (0.5 mL) subcut QWEEK 2 mL 5RF Coding Level of Care Code Est Pt Level 3 (72719) Diagnoses Hypogonadotropic hypogonadism E23.0
[2023-05-27 15:31] VITALS: BP 102/72; PULSE 62; BMI 42.6
== END 2023-05-27 16:02 | disposition home or self-care (01) ==
PROVIDERS: PCP Internal Medicine; Visit Provider Internal Medicine Endocrinology, Diabetes & Metabolism
DX: E23.0 Hypopituitarism (principal)
CPT/HCPCS: 99213

== ENCOUNTER → 2023-05-27 15:29 | Outpatient (BNVA) | payer OTHER, SELFPAY | PROVIDERS: PCP Internal Medicine; Visit Provider Internal Medicine Endocrinology, Diabetes & Metabolism ==

== ENCOUNTER 2023-07-01 12:28 | Outpatient (REF) | payer OTHER, SELFPAY ==
[2023-07-01 13:40] LABS: Cholesterol 211 mg/dL (<200); HDL Cholesterol 30 mg/dL (>40); Triglycerides 406 mg/dL (<150)
[2023-07-01 13:59] LABS: Alanine Aminotransferase 43 U/L (0-40); Albumin Level 4.1 g/dL (3.5-5.0); Alkaline Phosphatase 120 U/L (39-117); Aspartate Amino Transferase 33 U/L (5-37); Bilirubin Direct < 0.2 mg/dL (0.0-0.5); Bilirubin Total 0.2 mg/dL (0.0-1.0)
[2023-07-01 14:05] LABS: Reflex LDLD? Yes
[2023-07-02 09:19] LABS: LDL Cholesterol Direct 124 mg/dL (<100)
== END 2023-07-01 12:29 | disposition home or self-care (01) ==
LOC: HO.LNP 12:28
PROVIDERS: Visit Provider Internal Medicine
DX: E78.00 Pure hypercholesterolemia, unspecified (principal)
CPT/HCPCS: 80061; 80076; 83721

== ENCOUNTER 2023-08-19 13:32 | Outpatient (AMB) | payer OTHER, SELFPAY ==
--- NOTE | 2023-08-19 13:33 | MHC.OFFVIS ---
Intake Vital Signs 08/19/23 13:34 Height 5 ft 7 in Weight 272 lb 0.807 oz BMI 42.6 BP 120/70 Blood Pressure Location Lt brachial Position Sitting Pulse 61 Pulse Source Pulse Oximeter Intake Visit Reasons: hypogonadism/confirm Intake Note: Patient present for Hypogonadism follow up visit. Vending Machine Attendant Required: No Accompanied by: Self / Same As Patient Allergies No Known Allergies Allergy (Verified 08/19/23 13:39) HPI HPI Comments History of Present Illness Details 43 YO Male with PMHx HLD who is seen in F/U for hypogonadotropic hypogonadism and gynecomastia. He was initially referred to us due to gynecomastia. Full lab eval revealed hypogonadotropic hypogonadism. At that time he did report difficulty conceiving for a few years. Did have semen analysis which he reports revealed low sperm counts. We discussed the diagnosis of hypogonadism, and the need for pituitary MRI as well as sleep study and full pituitary lab panel. These were all ordered, but he was subsequently lost to F/U. He then re-established care in late Sep 2019. Full Pituitary panel was assessed which revealed low am cortisol, and also hypogonadotropic hypogonadism. Labs 10/26/2019 ACTH 18, Cortisol 9.4, FS 5.1, LH 5.3, Total Testosterone 76, Free Testosterone 19.3. He underwent a cosyntropin stimulation test which was WNL with appropriate response. He subsequently had a pituitary MRI which revealed asymmetric pneumatization of the sphenoid sinus with asymmetric left downsloping of the pituitary gland, and deviation of the infundibulum slightly to the left. There was also deviation of the optic chiasm to the left. It appeared this pathology had been present since 2009. He was referred for formal visual field testing and also to Neurosurgeon Dr. Smitha Zimmer. Formal visual taylor were WNL, and Neurosurgery recommended no surgical intervention, and just surveillance MRI yearly. Repeat labs reveal low Total testosterone, with low normal SHBG, and Free testosterone WNL, though low normal. He reports good libido. Does have am erection and is able to achieve erection when desired. Unsure if he has RUPA. I did ask him to have a sleep study but he has not done this as of yet. Reports good sense of smell. He is not using any OTC supplements or herbs. Otherwise he has no complaints today. Pituitary MRI 11/07/2019: On the focused imaging of the sella, the floor of the bony sella is slightly downward and to the left secondary to asymmetric pneumatization of the sphenoid sinus. This results in some asymmetric left downsloping of the pituitary gland, and deviation of the infundibulum slightly to the left. This morphology is noted on the prior exams, as far back as 2009, and is not changed. No hypoenhancing lesions are seen within the substance of the pituitary gland to suggest underlying adenoma. The optic chiasm is also slightly deviated to the left. The suprasellar cistern is otherwise unremarkable. The cavernous sinuses are patent. Labs: Laboratory Tests 02/04/21 02/04/21 02/04/21 09:22 09:22 09:22 Hgb 14.2 Hct 41.3 L Creatinine Estimated GFR Triglycerides Cholesterol LDL Cholesterol, C alc HDL Cholesterol Prostate Specific Ag 0.52 FSH 7.7 Luteinizing Hormon e 6.4 Total Testosterone 142 L Fr Testosterone Di elly 36.6 Sex Hormone Bind G lob 15 04/18/21 Unknown Hgb Hct Creatinine 0.85 Estimated GFR > 60 Triglycerides 167 Cholesterol 162 LDL Cholesterol, C alc 90 HDL Cholesterol 39 Prostate Specific Ag FSH Luteinizing Hormon e Total Testosterone Fr Testosterone Di elly Sex Hormone Bind G lob More recently, his testosterone level 74 . No loss of libido. Some energy loss, Does snore but has sleep study next mo. No children. Not looking to father children . No osteoporotic fx Was diagnosed with sleep apnea . Using CPAP mask. Had difficulty getting the Xyosted but will start injecting PFSH Medical History (Updated 08/13/23 @ 14:03 by Dawn Alaniz) Gynecomastia Pituitary adenoma Hypogonadotropic hypogonadism Surgical History (Updated 08/13/23 @ 14:03 by Dawn Alaniz) Hx of removal of cyst Hx of hernia repair Hx of foot surgery Family History (System 08/13/23 @ 14:03 by Dawn Alaniz) Father Unknown family medical history Mother Breast cancer Stroke Social History (System 08/13/23 @ 14:03 by Dawn Alaniz) Household Members: Family Alcohol intake: former Comment: Sober for 2 years Patient Tobacco Use Status: Never used Tobacco Assessment & Plan Assessment & Plan (1) Hypogonadotropic hypogonadism: Code(s): E23.0 - Hypopituitarism Plan: This is a 42-year-old male with a history of secondary hypogonadism and gynecomastia with workup revealing structural pituitary problems but no mass. Currently on intramuscular testosterone 100 mg q.week Plan is to continue intramuscular testosterone 100 mg Q weekly. will get peak and trough testosterone and CBC 6 weeks later. Coding Level of Care Code Est Pt Level 3 (88669) Diagnoses Hypogonadotropic hypogonadism E23.0
[2023-08-19 13:34] VITALS: BP 120/70; PULSE 61; BMI 42.6
== END 2023-08-19 14:00 | disposition home or self-care (01) ==
PROVIDERS: PCP Internal Medicine; Visit Provider Internal Medicine Endocrinology, Diabetes & Metabolism
DX: E23.0 Hypopituitarism (principal)
CPT/HCPCS: 99213

== ENCOUNTER → 2023-08-19 13:32 | Outpatient (BNVA) | payer OTHER, SELFPAY | PROVIDERS: PCP Internal Medicine; Visit Provider Internal Medicine Endocrinology, Diabetes & Metabolism ==

== ENCOUNTER 2023-12-16 10:49 | Outpatient (REF) | payer OTHER, SELFPAY ==
[2023-12-16 11:48] LABS: Estimated Average Glucose 128 mg/dL; Hemoglobin A1c % 6.1 % (<6.0)
[2023-12-16 12:09] LABS: Alanine Aminotransferase 24 U/L (0-40); Alkaline Phosphatase 90 U/L (39-117); Aspartate Amino Transferase 30 U/L (5-37); Bilirubin Direct 0.2 mg/dL (0.0-0.5); Bilirubin Total 0.6 mg/dL (0.0-1.0); Cholesterol 136 mg/dL (<200); Glucose Fasting 120 mg/dL (60-99); HDL Cholesterol 29 mg/dL (>40); LDL Cholesterol Calculated 68 mg/dL (<100); Total Protein 7.5 g/dL (6.5-8.0); Triglycerides 198 mg/dL (<150)
[2023-12-16 12:19] LABS: Reflex LDLD? No
== END 2023-12-16 10:50 | disposition home or self-care (01) ==
LOC: HO.LNP 10:49
PROVIDERS: Visit Provider Internal Medicine
DX: E78.00 Pure hypercholesterolemia, unspecified (principal); R73.03 Prediabetes
CPT/HCPCS: 80061; 80076; 82947; 83036

== ENCOUNTER 2023-12-29 08:15 | Outpatient (REF) | payer OTHER, SELFPAY ==
[2023-12-29 09:19] LABS: Hematocrit 46.7 % (42.0-52.0); Hemoglobin 16.4 g/dl (14.0-18.0)
[2024-01-03 21:39] LABS: Testosterone, Free 152.5 pg/mL (35.0-155.0); Testosterone, Total 475 ng/dL (250-1100)
== END 2023-12-29 08:16 | disposition home or self-care (01) ==
LOC: HO.LAB 08:15
PROVIDERS: PCP Internal Medicine Endocrinology, Diabetes & Metabolism; Visit Provider Internal Medicine Endocrinology, Diabetes & Metabolism
DX: E23.0 Hypopituitarism (principal)
CPT/HCPCS: 36415; 84402; 84403; 85014; 85018

== ENCOUNTER 2024-01-04 09:32 | Outpatient (AMB) | payer OTHER, SELFPAY ==
[2024-01-04 09:39] VITALS: BP 112/74; PULSE 56; BMI 44.4
--- NOTE | 2024-01-04 09:39 | MHC.OFFVIS ---
Vital Signs 01/04/24 09:39 Height 5 ft 7 in Weight 283 lb 8.231 oz BMI 44.4 BP 112/74 Blood Pressure Location Lt brachial Position Sitting Pulse 56 Pulse Source Pulse Oximeter Intake Visit Reasons: Hypogonadism Intake Note: Patient presents today for Hypogonadism follow up. Simulation Developer Required: No Accompanied by: Self / Same As Patient Allergies No Known Allergies Allergy (Verified 01/04/24 09:43) Medication List - Last Reconciled 01/04/24 by Delfino Decker MD atorvastatin 20 mg PO DAILY citalopram 20 mg PO DAILY indomethacin 0 mg PO testosterone enanthate (Xyosted) 100 mg (0.5 mL) subcut QWEEK HPI Comments Details: 43 YO Male with PMHx HLD who is seen in F/U for hypogonadotropic hypogonadism and gynecomastia. He was initially referred to us due to gynecomastia. Full lab eval revealed hypogonadotropic hypogonadism. At that time he did report difficulty conceiving for a few years. Did have semen analysis which he reports revealed low sperm counts. We discussed the diagnosis of hypogonadism, and the need for pituitary MRI as well as sleep study and full pituitary lab panel. These were all ordered, but he was subsequently lost to F/U. He then re-established care in late Sep 2019. Full Pituitary panel was assessed which revealed low am cortisol, and also hypogonadotropic hypogonadism. Labs 10/26/2019 ACTH 18, Cortisol 9.4, FS 5.1, LH 5.3, Total Testosterone 76, Free Testosterone 19.3. He underwent a cosyntropin stimulation test which was WNL with appropriate response. He subsequently had a pituitary MRI which revealed asymmetric pneumatization of the sphenoid sinus with asymmetric left downsloping of the pituitary gland, and deviation of the infundibulum slightly to the left. There was also deviation of the optic chiasm to the left. It appeared this pathology had been present since 2009. He was referred for formal visual field testing and also to Neurosurgeon Dr. Smitha Zimmer. Formal visual taylor were WNL, and Neurosurgery recommended no surgical intervention, and just surveillance MRI yearly. Repeat labs reveal low Total testosterone, with low normal SHBG, and Free testosterone WNL, though low normal. He reports good libido. Does have am erection and is able to achieve erection when desired. Unsure if he has RUPA. I did ask him to have a sleep study but he has not done this as of yet. Reports good sense of smell. He is not using any OTC supplements or herbs. Otherwise he has no complaints today. Pituitary MRI 11/07/2019: On the focused imaging of the sella, the floor of the bony sella is slightly downward and to the left secondary to asymmetric pneumatization of the sphenoid sinus. This results in some asymmetric left downsloping of the pituitary gland, and deviation of the infundibulum slightly to the left. This morphology is noted on the prior exams, as far back as 2009, and is not changed. No hypoenhancing lesions are seen within the substance of the pituitary gland to suggest underlying adenoma. The optic chiasm is also slightly deviated to the left. The suprasellar cistern is otherwise unremarkable. The cavernous sinuses are patent. Labs: Laboratory Tests 02/04/21 02/04/21 02/04/21 09:22 09:22 09:22 Hgb 14.2 Hct 41.3 L Creatinine Estimated GFR Triglycerides Cholesterol LDL Cholesterol, Calc HDL Cholesterol Prostate Specific Ag 0.52 FSH 7.7 Luteinizing Hormone 6.4 Total Testosterone 142 L Fr Testosterone Dialys 36.6 Sex Hormone Bind Glob 15 04/18/21 Unknown Hgb Hct Creatinine 0.85 Estimated GFR > 60 Triglycerides 167 Cholesterol 162 LDL Cholesterol, Calc 90 HDL Cholesterol 39 Prostate Specific Ag FSH Luteinizing Hormone Total Testosterone Fr Testosterone Dialys Sex Hormone Bind Glob More recently, On Xyosted 100 mg Qwkly . No loss of libido. Some energy loss, Does snore but has sleep study next mo. No children. Not looking to father children . No osteoporotic fx Was diagnosed with sleep apnea . Using CPAP mask. Had difficulty getting the Xyosted but will start injecting PFSH Medical History (Updated 08/13/23 @ 14:03 by Dawn Alaniz) Gynecomastia Pituitary adenoma Hypogonadotropic hypogonadism Surgical History Hx of removal of cyst Hx of hernia repair Hx of foot surgery Family History Father Unknown family medical history Mother Breast cancer Stroke Social History Household Members: Family Alcohol intake: former Comment: Sober for 2 years Patient Tobacco Use Status: Never used Tobacco Physical Exam Vital Signs: Last Vital Signs Pulse 56 01/04/24 09:39 BP 112/74 01/04/24 09:39 BMI result Body Mass Index 44.4 Assessment & Plan Assessment & Plan (1) Hypogonadotropic hypogonadism: Code(s): E23.0 - Hypopituitarism Category: Medical Plan: This is a 42-year-old male with a history of secondary hypogonadism and gynecomastia with workup revealing structural pituitary problems but no mass. Currently on intramuscular testosterone 100 mg q.week. peak testosterone level was normal and adequate Plan is to continue intramuscular testosterone 100 mg Q weekly. (2) Hypogonadotropic hypogonadism: Code(s): E23.0 - Hypopituitarism Category: Medical Plan: See plan for hypogonadism Orders: Orders Testosterone, Free/Total 7 Months E23.0 - Hypopituitarism Hematocrit 7 Months E23.0 - Hypopituitarism Hemoglobin 7 Months E23.0 - Hypopituitarism Testosterone, Free/Total 6 Months E23.0 - Hypopituitarism
== END 2024-01-04 09:53 | disposition home or self-care (01) ==
PROVIDERS: PCP Internal Medicine; Visit Provider Internal Medicine Endocrinology, Diabetes & Metabolism
DX: E23.0 Hypopituitarism (principal)
CPT/HCPCS: 99213

== ENCOUNTER → 2024-01-04 09:32 | Outpatient (BNVA) | payer OTHER, SELFPAY | PROVIDERS: PCP Internal Medicine; Visit Provider Internal Medicine Endocrinology, Diabetes & Metabolism ==

== ENCOUNTER 2024-01-07 11:11 | Outpatient (REF) | payer OTHER, SELFPAY ==
[2024-01-07 11:56] LABS: Basophils Absolute Auto 0.1 X10*3/uL (0.0-0.2); Basophils Percent Auto 0.7 % (0-2); Eosinophils Absolute Auto 0.1 X10*3/uL (0.0-0.4); Eosinophils Percent Auto 1.5 % (0-4); Hematocrit 45.1 % (42.0-52.0); Hemoglobin 15.8 g/dl (14.0-18.0); Imm Gran Abs Auto 0.02 X10*3/uL (0.00-0.03); Imm Gran Pct Auto 0.3 % (0.0-0.4); Lymphocytes Absolute Auto 2.7 X10*3/uL (1.2-4.9); MANUAL DIFF FLAG SCAN; Mean Corpuscular Hemoglobin 30.7 pg (27.0-33.0); Mean Corpuscular Volume 87.7 fL (80.0-98.0); Mean Platelet Volume 13.1 fL (9.4-12.4); Monocytes Absolute Auto 0.4 X10*3/uL (0.1-1.2); Neutrophils Absolute Auto 4.1 x10*3/uL (2.0-8.3); Neutrophils Percent Auto 55.5 % (45-73); PLT CLUMP 1; Red Blood Count 5.14 X10*6/uL (4.60-5.80); Red Cell Distribution Width 12.3 % (11.0-16.0); SCAN SMEAR FLAG 1
[2024-01-07 12:43] LABS: Alanine Aminotransferase 21 U/L (0-40); Albumin Level 4.1 g/dL (3.5-5.0); Alkaline Phosphatase 88 U/L (39-117); Anion Gap 12 (12-20); Aspartate Amino Transferase 23 U/L (5-37); Bilirubin Total 0.6 mg/dL (0.0-1.0); Blood Urea Nitrogen 15 mg/dL (9-16); Carbon Dioxide 27 mmol/L (22-29); Chloride 102 mmol/L (96-108); Estimated Glomerular Filt Rate > 60; Glucose Fasting 176 mg/dL (60-99); Sodium 137 mmol/L (135-145); Total Protein 7.5 g/dL (6.5-8.0)
[2024-01-07 12:46] LABS: PSA,Total (Free>4and<10) 0.94 ng/mL (0.00-4.00)
[2024-01-07 12:47] LABS: Platelet Count 134 X10*3/uL (160-400); White Blood Count 7.4 X10*3/uL (4.8-10.8)
[2024-01-07 12:48] LABS: SLIDE REVIEW VERIFIED
== END 2024-01-07 11:12 | disposition home or self-care (01) ==
LOC: HO.LNP 11:11
PROVIDERS: Visit Provider Internal Medicine
DX: Z00.00 Encounter for general adult medical examination without abnormal findings (principal); Z12.5 Encounter for screening for malignant neoplasm of prostate; Z51.81 Encounter for therapeutic drug level monitoring; E34.9 Endocrine disorder, unspecified; Z79.890 Hormone replacement therapy
CPT/HCPCS: 80053; 84153; 85025

== ENCOUNTER 2024-07-07 10:57 | Outpatient (REF) | payer OTHER, SELFPAY ==
[2024-07-07 11:30] LABS: Estimated Average Glucose 117 mg/dL; Hemoglobin A1C 157.1244 umol/L; Hemoglobin A1c % 5.7 % (<6.0); Total Hemoglobin (HGBA1C) 4018.8074 umol/L
[2024-07-07 11:46] LABS: Alanine Aminotransferase 33 U/L (0-40); Albumin Level 4.4 g/dL (3.5-5.0); Alkaline Phosphatase 87 U/L (39-117); Aspartate Amino Transferase 57 U/L (5-37); Bilirubin Direct 0.2 mg/dL (0.0-0.5); Bilirubin Total 0.5 mg/dL (0.0-1.0); Cholesterol 149 mg/dL (<200); Glucose Fasting 128 mg/dL (60-99); HDL Cholesterol 30 mg/dL (>40); LDL Cholesterol Calculated 67 mg/dL (<100); Total Protein 7.5 g/dL (6.5-8.0); Triglycerides 261 mg/dL (<150)
[2024-07-07 11:50] LABS: Reflex LDLD? No
== END 2024-07-07 10:58 | disposition home or self-care (01) ==
LOC: HO.LNP 10:57
PROVIDERS: Visit Provider Internal Medicine
DX: E78.00 Pure hypercholesterolemia, unspecified (principal); R73.03 Prediabetes
CPT/HCPCS: 80061; 80076; 82947; 83036

== ENCOUNTER 2024-08-03 08:35 | Outpatient (REF) | payer OTHER, SELFPAY ==
[2024-08-03 09:12] LABS: Hematocrit 46.6 % (42.0-52.0); Hemoglobin 16.8 g/dl (14.0-18.0)
[2024-08-12 19:04] LABS: Testosterone, Free 184.9 pg/mL (35.0-155.0); Testosterone, Total 695 ng/dL (250-1100)
== END 2024-08-03 08:36 | disposition home or self-care (01) ==
LOC: HO.LAB 08:35
PROVIDERS: PCP Internal Medicine; Visit Provider Internal Medicine Endocrinology, Diabetes & Metabolism
DX: E23.0 Hypopituitarism (principal)
CPT/HCPCS: 36415; 84402; 84403; 85014; 85018

== ENCOUNTER 2024-08-16 09:58 | Outpatient (AMB) | payer OTHER, SELFPAY ==
--- NOTE | 2024-08-16 09:59 | MHC.OFFVIS ---
Vital Signs 08/16/24 10:01 Height 5 ft 7 in Weight 266 lb 15.677 oz BMI 41.8 BP 112/64 Blood Pressure Location Lt brachial Position Sitting Pulse 53 Pulse Source Pulse Oximeter Intake Visit Reasons: Hypogonidism Intake Note: Patient presents today for Hypogonadism follow up. Sales Representative Printing Supplies Required: No Accompanied by: Self / Same As Patient Allergies No Known Allergies Allergy (Verified 08/16/24 10:01) HPI Comments Details: 44 YO Male with PMHx HLD who is seen in F/U for hypogonadotropic hypogonadism and gynecomastia. He was initially referred to us due to gynecomastia. Full lab eval revealed hypogonadotropic hypogonadism. At that time he did report difficulty conceiving for a few years. Did have semen analysis which he reports revealed low sperm counts. We discussed the diagnosis of hypogonadism, and the need for pituitary MRI as well as sleep study and full pituitary lab panel. These were all ordered, but he was subsequently lost to F/U. He then re-established care in late Sep 2019. Full Pituitary panel was assessed which revealed low am cortisol, and also hypogonadotropic hypogonadism. Labs 10/26/2019 ACTH 18, Cortisol 9.4, FS 5.1, LH 5.3, Total Testosterone 76, Free Testosterone 19.3. He underwent a cosyntropin stimulation test which was WNL with appropriate response. He subsequently had a pituitary MRI which revealed asymmetric pneumatization of the sphenoid sinus with asymmetric left downsloping of the pituitary gland, and deviation of the infundibulum slightly to the left. There was also deviation of the optic chiasm to the left. It appeared this pathology had been present since 2009. He was referred for formal visual field testing and also to Neurosurgeon Dr. Smitha Zimmer. Formal visual taylor were WNL, and Neurosurgery recommended no surgical intervention, and just surveillance MRI yearly. Repeat labs reveal low Total testosterone, with low normal SHBG, and Free testosterone WNL, though low normal. He reports good libido. Does have am erection and is able to achieve erection when desired. Unsure if he has RUPA. I did ask him to have a sleep study but he has not done this as of yet. Reports good sense of smell. He is not using any OTC supplements or herbs. Otherwise he has no complaints today. Pituitary MRI 11/07/2019: On the focused imaging of the sella, the floor of the bony sella is slightly downward and to the left secondary to asymmetric pneumatization of the sphenoid sinus. This results in some asymmetric left downsloping of the pituitary gland, and deviation of the infundibulum slightly to the left. This morphology is noted on the prior exams, as far back as 2009, and is not changed. No hypoenhancing lesions are seen within the substance of the pituitary gland to suggest underlying adenoma. The optic chiasm is also slightly deviated to the left. The suprasellar cistern is otherwise unremarkable. The cavernous sinuses are patent. Labs: Laboratory Tests 02/04/21 02/04/21 02/04/21 09:22 09:22 09:22 Hgb 14.2 Hct 41.3 L Creatinine Estimated GFR Triglycerides Cholesterol LDL Cholesterol, Calc HDL Cholesterol Prostate Specific Ag 0.52 FSH 7.7 Luteinizing Hormone 6.4 Total Testosterone 142 L Fr Testosterone Dialys 36.6 Sex Hormone Bind Glob 15 04/18/21 Unknown Hgb Hct Creatinine 0.85 Estimated GFR > 60 Triglycerides 167 Cholesterol 162 LDL Cholesterol, Calc 90 HDL Cholesterol 39 Prostate Specific Ag FSH Luteinizing Hormone Total Testosterone Fr Testosterone Dialys Sex Hormone Bind Glob Was , On Xyosted 100 mg Qwkly . No loss of libido. Some energy loss, Does snore but has sleep study next mo. No children. Not looking to father children . No osteoporotic fx Was diagnosed with sleep apnea . Using CPAP mask. g . On intramuscular testosterone 100 mg Q weekly . No worsening sleep apnea. No change in urine stream. Libido is good as his energy throughout injection cycle [facility] Medical History (Updated 08/13/23 @ 14:03 by Dawn Alaniz) Gynecomastia Pituitary adenoma Hypogonadotropic hypogonadism Surgical History Hx of removal of cyst Hx of hernia repair Hx of foot surgery Family History Father Unknown family medical history Mother Breast cancer Stroke Social History Household Members: Family Alcohol intake: former Comment: Sober for 2 years Patient Tobacco Use Status: Never used Tobacco Physical Exam Vital Signs: BMI result Body Mass Index 41.8 Assessment & Plan Assessment & Plan (1) Hypogonadotropic hypogonadism: Code(s): E23.0 - Hypopituitarism Category: Medical Plan: This is a 42-year-old male with a history of secondary hypogonadism and gynecomastia with workup revealing structural pituitary problems but no mass. Currently on intramuscular testosterone 100 mg q.week. peak testosterone level was normal and adequate Plan is to continue intramuscular testosterone 100 mg Q weekly. Orders: Orders Hematocrit 1 Year E23.0 - Hypopituitarism Hemoglobin 1 Year E23.0 - Hypopituitarism Coding Level of Care Code Est Pt Level 3 (89018) Diagnoses Hypogonadotropic hypogonadism E23.0
[2024-08-16 10:01] VITALS: BP 112/64; PULSE 53; BMI 41.8
--- OUTSIDE RECORDS SUMMARY | 2024-08-22 17:23 | XMS_ITS | Patient Health Record ---
Author Organization Waldo Fabian MD Address [address] [place], [place] [id number] Care Team Providers Care Barrel Waterer Name Role Phone Waldo Fabian Primary Care Provider ALLERGIES No Known Allergies RESULTS Component Value Reference Range Notes Hemoglobin A1c Reviewed date:09/20/2023 03:53:40 PM Interpretation: Performing Lab: Notes/Report: Value Hemoglobin A1c 6.3 Glucose, finger stick Reviewed date:09/20/2023 03:49:33 PM Interpretation: Performing Lab: Notes/Report: Value 89 Hold Gold Reviewed date:12/16/2023 04:08:44 PM Interpretation: Performing Lab:[facility], [address] [place] [phone] Notes/Report: Hold Gold See Note Specimen held untested for 24 hours; Call to request Chemistry testing. Liver Panel Reviewed date:12/16/2023 04:09:11 PM Interpretation: Performing Lab:[facility], [address] [place] [phone] Notes/Report: Bilirubin Total 0.6 0.0-1.0 mg/dL Bilirubin Direct 0.2 0.0-0.5 mg/dL Slight Hem olysis Aspartate Amino Transferase 30 5-37 U/L Slight Hemolysis Alanine Aminotransferase 24 0-40 U/L Total Protein 7.5 6.5-8.0 g/dL Albumin Level 4.0 3.5-5.0 g/dL Alkaline Phosphatase 90 39-117 U/L Glucose Fasting Reviewed date:12/16/2023 04:25:38 PM Interpretation: Performing Lab:[facility], [address] [place] [phone] Notes/Report: Glucose Fasting 120 60-99 mg/dL A fasting glucose from 100-125 mg/dl is considered impaired (pre-diabetes). Lipid Panel with Reflex Reviewed date:12/16/2023 04:25:47 PM Interpretation: Performing Lab:[facility], [address] [place] [phone] Notes/Report: Triglycerides 198 <150 mg/dL Desirable Triglyceride: less than 150 mg/dL Borderline High Triglyceride 150-199 mg/dL High Triglyceride: 200-499 mg/dL Very High Triglyceride: greater than or equal to 5OO mg/dL Cholesterol 136 <200 mg/dL Desirable Cholesterol: less than 200 mg/dL Borderline High Cholesterol: 200-239 mg/dL High Cholesterol: greater than 239 mg/dL LDL Cholesterol Calculated 68 <100 mg/dL Desirable LDL: less than 100 mg/dL Near Optimal/Above Optimal LDL: 110-129 mg/dL Borderline High LDL: 130-159 mg/dL High LDL: 160-189 mg/dL Very High LDL: greater than or equal to 190 mg/dL HDL Cholesterol 29 >40 mg/dL Desirable HDL: greater than 40 mg/dL Note: This HDL assay may give artificially low results in patients with liver disease. Hemoglobin A1c Reviewed date:12/16/2023 01:10:28 PM Interpretation: Performing Lab:[facility], [address] [place] [phone] Notes/Report: Hemoglobin A1c % 6.1 <6.0 % Hemoglobin A1C Reference Range Adults: 4.8 - 6.0 % Non diabetic: < 6.0 % Goal: < 7.0 % Additional Action Suggested: > 8.0 % Note: Hemoglobin A1c results are invalid for patients with abnormal amounts of HbF. Blood transfusions may impact the HbA1c concentration in the patient sample. Estimated Average Glucose 128 eAG = Estimated average glucose which is %A1C expressed as average glucose, using the formula of the V8B-Rsuqhen Average Glucose study (ADAG), Diabetes Care, Vol.31,#8, 2007 SLIDE REVIEW Reviewed date:01/07/2024 05:17:02 PM Interpretation: Performing Lab:[facility], [address] [place] [phone] Notes/Report: SLIDE REVIEW VERIFIED Occult Blood, Stool, Guaiac Reviewed date:01/07/2024 11:44:12 AM Interpretation:Negative Performing Lab: Notes/Report: Negative Occult Blood, Stool, Guaiac Neg Complete Blood Count Auto Di ff Reviewed date:01/07/2024 07:45:14 PM Interpretation: Performing Lab:[facility], [address] [place] [phone] Notes/Report: White Blood Count 7.4 4.8-10.8 X10*3/uL Red Blood Count 5.14 4.60-5.80 X10*6/uL Hemoglobin 15.8 14.0-18.0 g/dl Hematocrit 45.1 42.0-52.0 % Mean Corpuscular Volume 87.7 80.0-98.0 fL Mean Corpuscular Hemoglobin 30.7 27.0-33.0 pg Mean Corpuscular HGB Conc 35.0 31.0-36.0 g/dl Red Cell Distribution Width 12.3 11.0-16.0 % Platelet Count 134 160-400 X10*3/uL Mean Platelet Volume 13.1 9.4-12.4 fL Neutrophils Percent Auto 55.5 45-73 % Imm Gran Pct Auto 0.3 0.0-0.4 % Lymphocytes Percent Auto 36.0 20-40 % Monocytes Percent Auto 6.0 2-11 % Eosinophils Percent Auto 1.5 0-4 % Basophils Percent Auto 0.7 0-2 % NRBC Pct Auto 0.0 0.0-0.2 /100WBC Neutrophils Absolute Auto 4.1 2.0-8.3 x10*3/u L Imm Gran Abs Auto 0.02 0.00-0.03 X10*3/uL Lymphocytes Absolute Auto 2.7 1.2-4.9 X10*3/u L Monocytes Absolute Auto 0.4 0.1-1.2 X10*3/uL Eosinophils Absolute Auto 0.1 0.0-0.4 X10*3/u L Basophils Absolute Auto 0.1 0.0-0.2 X10*3/uL NRBC Abs Auto 0.000 0.0-0.012 X10*3/uL White Blood Count 7.4 4.8-10.8 X10*3/uL Red Blood Count 5.14 4.60-5.80 X10*6/uL Hemoglobin 15.8 14.0-18.0 g/dl Hematocrit 45.1 42.0-52.0 % Mean Corpuscular Volume 87.7 80.0-98.0 fL Mean Corpuscular Hemoglobin 30.7 27.0-33.0 pg Mean Corpuscular HGB Conc 35.0 31.0-36.0 g/dl Red Cell Distribution Width 12.3 11.0-16.0 % Platelet Count 134 160-400 X10*3/uL Mean Platelet Volume 13.1 9.4-12.4 fL Neutrophils Percent Auto 55.5 45-73 % Imm Gran Pct Auto 0.3 0.0-0.4 % Lymphocytes Percent Auto 36.0 20-40 % Monocytes Percent Auto 6.0 2-11 % Eosinophils Percent Auto 1.5 0-4 % Basophils Percent Auto 0.7 0-2 % NRBC Pct Auto 0.0 0.0-0.2 /100WBC Neutrophils Absolute Auto 4.1 2.0-8.3 x10*3/u L Imm Gran Abs Auto 0.02 0.00-0.03 X10*3/uL Lymphocytes Absolute Auto 2.7 1.2-4.9 X10*3/u L Monocytes Absolute Auto 0.4 0.1-1.2 X10*3/uL Eosinophils Absolute Auto 0.1 0.0-0.4 X10*3/u L Basophils Absolute Auto 0.1 0.0-0.2 X10*3/uL NRBC Abs Auto 0.000 0.0-0.012 X10*3/uL Comprehensive [place]. Panel Fa st Reviewed date:01/07/2024 07:44:29 PM Interpretation: Performing Lab:[facility], [address] [place] [phone] Notes/Report: Sodium 137 135-145 mmol/L Potassium 4.0 3.3-5.1 mmol/L Chloride 102 96-108 mmol/L Carbon Dioxide 27 22-29 mmol/L Anion Gap 12 12-20 Blood Urea Nitrogen 15 9-16 mg/dL Creatinine 0.80 0.5-1.4 mg/dL Estimated Glomerular Filt Rate > 60 NOTE: For -Tajik individuals, multiply the result by 1.210. Chronic Kidney Disease: Estimated GFR < 60 mL/min/1.73m2 Severe Kidney Disease: Estimated GFR < 15 mL/min/1.73m2 Glucose Fasting 176 60-99 mg/dL A fasting glucose of 126 mg/dl or greater on more than one occasion is considered diagnostic of diabetes. Calcium 9.0 8.4-10.2 mg/dL Bilirubin Total 0.6 0.0-1.0 mg/dL Aspartate Amino Transferase 23 5-37 U/L Alanine Aminotransferase 21 0-40 U/L Total Protein 7.5 6.5-8.0 g/dL Albumin Level 4.1 3.5-5.0 g/dL Alkaline Phosphatase 88 39-117 U/L PSA,Total (Free>4and<10) Reviewed date:01/07/2024 05:15:41 PM Interpretation: Performing Lab:[facility], [address] [place] [phone] Notes/Report: PSA,Total (Free>4and<10) 0.94 0.00-4.00 ng/mL A Free PSA was not performed: The percentage of Free PSA can be used to enhance the differentiation of prostate cancer from benign prostatic disease in subjects whose PSA levels are between 4.0 and 10.0 ng/mL. For subjects whose PSA levels are below 4.0 or above 10.0 ng/mL, the risk of prostate cancer is determined on the basis of the PSA alone. Therefore the % Free PSA is recommended only for those subjects whose PSA levels are between 4.0 and 10.0 ng/mL. PSA methodology: [place] Alinity i Chemiluminescent Microparticle Immunoassay (CMIA) [place] Reviewed date:07/08/2024 12:55:46 PM Interpretation: Performing Lab:[facility], [address] [place] [phone] Notes/Report: Hold Gold See Note Specimen held untested for 24 hours; Call to request Chemistry testing. Liver Panel Reviewed date:07/08/2024 12:57:38 PM Interpretation: Performing Lab:[facility], [address] [place] [phone] Notes/Report: Bilirubin Total 0.5 0.0-1.0 mg/dL Bilirubin Direct 0.2 0.0-0.5 mg/dL Aspartate Amino Transferase 57 5-37 U/L Alanine Aminotransferase 33 0-40 U/L Total Protein 7.5 6.5-8.0 g/dL Albumin Level 4.4 3.5-5.0 g/dL Alkaline Phosphatase 87 39-117 U/L Glucose Fasting Reviewed date:07/08/2024 12:55:56 PM Interpretation: Performing Lab:[facility], [address] [place] [phone] Notes/Report: Glucose Fasting 128 60-99 mg/dL A fasting glucose of 126 mg/dl or greater on more than one occasion is considered diagnostic of diabetes. Lipid Panel with Reflex Reviewed date:07/08/2024 12:55:36 PM Interpretation: Performing Lab:[facility], [address] [place] [phone] Notes/Report: Triglycerides 261 <150 mg/dL Desirable Triglyceride: less than 150 mg/dL Borderline High Triglyceride 150-199 mg/dL High Triglyceride: 200-499 mg/dL Very High Triglyceride: greater than or equal to 5OO mg/dL Cholesterol 149 <200 mg/dL Desirable Cholesterol: less than 200 mg/dL Borderline High Cholesterol: 200-239 mg/dL High Cholesterol: greater than 239 mg/dL LDL Cholesterol Calculated 67 <100 mg/dL Desirable LDL: less than 100 mg/dL Near Optimal/Above Optimal LDL: 110-129 mg/dL Borderline High LDL: 130-159 mg/dL High LDL: 160-189 mg/dL Very High LDL: greater than or equal to 190 mg/dL HDL Cholesterol 30 >40 mg/dL Desirable HDL: greater than 40 mg/dL Note: This HDL assay may give artificially low results in patients with liver disease. Hemoglobin A1c Reviewed date:07/08/2024 12:55:26 PM Interpretation: Performing Lab:[facility], [address] [place] [phone] Notes/Report: Hemoglobin A1c % 5.7 <6.0 % Hemoglobin A1C Reference Range Adults: 4.8 - 6.0 % Non diabetic: < 6.0 % Goal: < 7.0 % Additional Action Suggested: > 8.0 % Note: Hemoglobin A1c results are invalid for patients with abnormal amounts of HbF. Blood transfusions may impact the HbA1c concentration in the patient sample. Estimated Average Glucose 117 eAG = Estimated average glucose which is %A1C expressed as average glucose, using the formula of the H6C-[place]adawc Average Glucose study (ADAG), Diabetes Care, Vol.31,#8, 2007 Hemoglobin Reviewed date:08/03/2024 05:18:02 PM Interpretation: Performing Lab:[facility], [address] [place] [phone] Notes/Report: Hemoglobin 16.8 14.0-18.0 g/dl Hematocrit Reviewed date:08/03/2024 05:16:27 PM Interpretation: Performing Lab:[facility], [address] [place] [phone] Notes/Report: Hematocrit 46.6 42.0-52.0 % Testosterone, Free/Total Reviewed date:08/13/2024 02:45:14 PM Interpretation: Performing Lab:[facility], [address] [place] [phone] Notes/Report: Testosterone, Total [phone] ng/dL For additional information, please refer to http://education.Acorns/faq/ TotalTestosteroneLCMSMSFAQ1 65 (This link is being provided for informational/ educational purposes only.) This test was developed and its analytical performance characteristics have been determined by [facility] [place], [place]. It has not been cleared or approved by the U.S. Food and Drug Administration. This assay has been validated pursuant to the CLIA regulations and is used for clinical purposes. Testosterone, Free 184.9 35.0-155.0 pg/mL This test was developed and its analytical performance characteristics have been determined by [facility] [place], [place]. It has not been cleared or approved by the U.S. Food and Drug Administration. This assay has been validated pursuant to the CLIA regulations and is used for clinical purposes. THIS TEST WAS PERFORMED AT: [facility]/[address] [phone] GASPER POSADA MD,PHD REASON FOR REFERRAL No Information MEDICATIONS Medication SIG (Take, Route, Frequency, Duration) Notes Start Date End Date Status Omeprazole 20 MG 1 capsule 1/2 to 1 h our before morning meal Orally Once a day for 30 day(s) Active Citalopram Hydrobromide 10 MG TAKE 1 TABLET BY MOUTH EVERY DAY Active Imitrex 100 MG 1 tablet at least 2 hours between doses as needed Orally Twice a day for 10 days 07/17/2022 Not-Taking Indomethacin 50 MG TAKE 1 CAPSULE [facility] TWICE DAILY WITH FOOD OR MILK for 30 Active Atorvastatin Calcium 20 MG TAKE 1 TABLET BY MOUTH EVERY DAY Active IMMUNIZATIONS Vaccine Route Administration Date Status Comme nts Flu Vaccine Unknown 07/05/2015 Administered At work Fluarix Quadrivalent IM Intramuscular 06/20/2019 Administe red Covid Vaccine Unknown 09/20/2020 Administered SARS-COV-2 Pfizer Unknown 10/11/2020 Administered SARS-COV-2 Pfizer Unknown 10/11/2020 Administered SARS-COV-2 Pfizer Unknown 07/03/2021 Administered Fluarix Quadrivalent Unknown 07/30/2022 Administered DECLINED, FLU Unknown 07/02/2014 Refused Fluarix Quadrivalent Unknown 09/14/2017 Refused Fluarix Quadrivalent Unknown 09/20/2018 Refused Fluarix Quadrivalent - 150 Unknown 09/20/2023 Refused SOCIAL HISTORY Tobacco Use: Social History Observation Description Date Details (start date - stop date) Former Smoker NA - NA Sex Assigned At : Social History Observation Description Sex Assigned At Unknown Tobacco Use/Smoking Question Answer Notes Patient is a former smoker How long has it been since y ou last smoked? > 10 years Additional Findings: Tobacco Non-User Fo rmer smoker, currently using no form of tobacco Alcohol Screen Question Answer Notes Did you have a drink containing alcohol in the p ast year? No Points 0 Interpretation Negative PROBLEMS Problem Type ICD Code Onset Dates Problem Status W/U Status Risk SNOMED Code Notes Problem Thrombocytopenia (D69.6) Active confirmed Thrombocytopeni a (447404262) Problem Gynecomastia (N62) Active confirmed 475 4008 Problem Non morbid obesity d ue to excess calories (E66.09) Active confirmed 863009921 Problem Elevated triglycerid es with high cholesterol (E78.2) Active confirmed 834541176 Problem Dysthymia (F34.1) Active confirmed 7866 7006 Problem Moderate episode of recurrent major depressive disorder (F33.1) Active confirmed 874396695 Problem Intractable migraine without aura and without status migrainosus (G43.019) Active confirmed 739412121 Problem Prediabetes (R73.03) Active confirmed 7 85190501 Problem Pure hypercholesterolemia (E78.00) Active confirmed 161162262 Problem RUPA (obstructive sle ep apnea) (G47.33) Active confirmed 33328777 Problem BMI 45.0-49.9, adult (Z68.42) Active confirmed 093866190 Problem 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) Active confirmed 112405618 Problem Hypogonadotropic hypogonadism (E23.0) Active confirmed 67063981 Problem Hypotestosteronemia in male (E29.1) Active confirmed 0443486823792 VITAL SIGNS Blood pressure diastolic 64 mm Hg 07/13/2024 maria del rosario ght is down 14 pounds since 01-07-24 Height 67 in 07/13/2024 weight is down 14 pounds since 01-07-24 Blood pressure systolic 102 mm Hg 07/13/2024 weig ht is down 14 pounds since 01-07-24 Weight 269 lbs 07/13/2024 weight is down 14 pounds since 01-07-24 BMI 42.13 kg/m2 07/13/2024 weight is down 14 pounds since 01-07-24 Encounters Encounter Location Date Provider Diagnosis Waldo Fabian MD [address] [place] [address] Drive [address] [place] [id number] 01/07/2024 Waldo Fabian Encounter for therap eutic drug level monitoring Z51.81 ; Annual physical exam Z00.00 ; Hormone replacement therapy Z79.890 ; Testosterone deficiency E34.9 ; Pure hypercholesterolemia E78.00 ; Prediabetes R73.03 ; Dysthymia F34.1 ; Colon cancer screening Z12.11 and Depression screening Z13.31 Waldo Fabian MD [address] [place] [address] Drive [address] [place] [id number] 12/16/2023 Waldo Fabian Pure hypercholestero lemia E78.00 and Prediabetes R73.03 Waldo Fabian MD [address] [place] [id number] 07/07/2024 Waldo Fabian Pure hypercholestero lemia E78.00 and Prediabetes R73.03 Waldo Fabian MD [address] [place] [id number] 09/20/2023 Waldo Fabian Prediabetes R73.03 a nd Hypogonadotropic hypogonadism E23.0 Waldo Fabian MD [address] [place] [id number] 07/13/2024 Waldo Fabian Hypogonadotropic hypogonadism E23.0 ; Prediabetes R73.03 ; Dysthymia F34.1 and Pure hypercholesterolemia E78.00 ASSESSMENTS Encounter Date Diagnosis Assessment Notes Treatment Notes Treatment Clinical Notes 01/07/2024 Annual physical exam (ICD-10 - Z00.00) labs reviewed and discussed with patient, additional labs pending 01/07/2024 Encounter for therap eutic drug level monitoring (ICD-10 - Z51.81) 12/16/2023 Prediabetes (ICD-10 - R73.03) 12/16/2023 Pure hypercholestero lemia (ICD-10 - E78.00) 07/07/2024 Prediabetes (ICD-10 - R73.03) 07/07/2024 Pure hypercholestero lemia (ICD-10 - E78.00) 09/20/2023 Prediabetes (ICD-10 - R73.03) still doing well. advised to get back on diet 09/20/2023 Hypogonadotropic hypogonadism (ICD-10 - E23.0) 07/13/2024 Prediabetes (ICD-10 - R73.03) doing well with diet, no need for medication 07/13/2024 Hypogonadotropic hypogonadism (ICD-10 - E23.0) doing great on testosterone, will continue current regiment 01/07/2024 Hormone replacement therapy (ICD-10 - Z79.890) 07/13/2024 Dysthymia (ICD-10 - F34.1) d oing well. wants to stay on meds, will continue current regiment 01/07/2024 Testosterone deficie ncy (ICD-10 - E34.9) 07/13/2024 Pure hypercholestero lemia (ICD-10 - E78.00) stable, will cntinue current regiment 01/07/2024 Pure hypercholestero lemia (ICD-10 - E78.00) stable, will continue current regiment 01/07/2024 Prediabetes (ICD-10 - R73.03) stable, no need for medicatio at this time 01/07/2024 Dysthymia (ICD-10 - F34.1) s table, will continue current regiment 01/07/2024 Colon cancer screeni ng (ICD-10 - Z12.11) guaiac negative 01/07/2024 Depression screening (ICD-10 - Z13.31) negative screen PLAN OF TREATMENT Pending Test Test Name Order Date CULTURE, STOOL, ANAMARIA/SHIG/CAMPY AND SHIGA TOXINS EIA W/RFL E.COLI O157 CULT 02/14/2021 Next Appt Details Provider Name:Waldo galloway, 01/04/2025 07:00:00 AM, [address] [place] [address], [address], [phone], Provider Name:Waldo galloway, 01/11/2025 08:30:00 AM, [address] [place] [address], [place] [address], [place], [place], [phone], Insurance Providers Payer Name Payer Address Payer Phone Subscriber Number Group Number Insured Name Patient Relationship to Insured Coverage Start Date Coverage End Date [place] Plan Administrators [address] [place] [id number] DOMINICK CANDELARIO Self - patient is the insured MEDICAL (GENERAL) HISTORY Surgical History Surgery Date(Month/Year) crushed finger tip 2012 undescending testicl
--- OUTSIDE RECORDS SUMMARY | 2024-08-22 17:23 | XMS_ITS ---
Author Organization Waldo Fabian MD Address [address] [place], [place] [phone] Care Team Providers Care Mortgage Manager Name Role Phone Waldo Fabian Primary Care Provider RESULTS Component Value Reference Range Notes Liver Panel Reviewed date:07/08/2024 12:57:38 PM Interpretation: Performing Lab:[facility], [address] [place] [phone] Notes/Report: Bilirubin Total 0.5 0.0-1.0 mg/dL Bilirubin Direct 0.2 0.0-0.5 mg/dL Aspartate Amino Transferase 57 5-37 U/L Alanine Aminotransferase 33 0-40 U/L Total Protein 7.5 6.5-8.0 g/dL Albumin Level 4.4 3.5-5.0 g/dL Alkaline Phosphatase 87 39-117 U/L Glucose Fasting Reviewed date:07/08/2024 12:55:56 PM Interpretation: Performing Lab:[facility], [address] [place] [phone] Notes/Report: Glucose Fasting 128 60-99 mg/dL A fasting glucose of 126 mg/dl or greater on more than one occasion is considered diagnostic of diabetes. Lipid Panel with Reflex Reviewed date:07/08/2024 12:55:36 PM Interpretation: Performing Lab:[facility], [address] [place] [phone] Notes/Report: Triglycerides 261 <150 mg/dL Desirable Triglyceride: [...] A1c Reviewed date:07/08/2024 12:55:26 PM Interpretation: Performing Lab:[facility], [address] [place] [phone] Notes/Report: Hemoglobin A1c % 5.7 <6.0 % [...] average glucose, using the formula of the D4W-Axlvnxy Average Glucose study (ADAG), Diabetes Care, Vol.31,#8, Apr. 2007 REASON FOR VISIT FASTING LIPIDS Encounters Encounter Location Date Provider Diagnosis Waldo Fabian MD [address] [place] [address] [address] [place], [place] [id number] 07/07/2024 Waldo Fabian Pure hypercholestero lemia E78.00 and Prediabetes R73.03 ASSESSMENTS Encounter Date Diagnosis Assessment Notes Treatment Notes Treatment Clinical Notes 07/07/2024 Pure hypercholestero lemia (ICD-10 - E78.00) 07/07/2024 Prediabetes (ICD-10 - R73.03) PLAN OF TREATMENT Next Appt Details Provider Name:Waldo galloway, 01/04/2025 07:00:00 AM, [address] [place] [address], [address], [place], [place], [phone], Provider Name:Waldo galloway, 01/11/2025 08:30:00 AM, [address] [place] [address], [address], [place], [place], [phone],
--- OUTSIDE RECORDS SUMMARY | 2024-08-22 17:23 | XMS_ITS ---
Author Organization Waldo Fabian MD Address [address] [place], [place] [phone] Care Team Providers Care Pan Pusher Name Role Phone Waldo Fabian Primary Care Provider ALLERGIES No Known Allergies RESULTS Component Value Reference Range Notes Occult Blood, Stool, Guaiac Reviewed date:01/07/2024 11:44:12 AM Interpretation:Negative Performing Lab: Notes/Report: Negative Occult Blood, Stool, Guaiac Neg Complete Blood Count Auto Di ff Reviewed date:01/07/2024 07:45:14 PM Interpretation: Performing Lab:[facility], [address] [place] [phone] Notes/Report: White Blood Count 7.4 4.8-10.8 X10*3/uL [...] NRBC Abs Auto 0.000 0.0-0.012 X10*3/uL Comprehensive [place]. Panel Fa st Reviewed date:01/07/2024 07:44:29 PM Interpretation: Performing Lab:[facility], [address] [place] [phone] Notes/Report: Sodium 137 135-145 mmol/L Potassium 4.0 3.3-5.1 mmol/L Chloride 102 96-108 mmol/L Carbon Dioxide 27 22-29 mmol/L Anion Gap 12 12-20 Blood Urea Nitrogen 15 9-16 mg/dL Creatinine 0.80 0.5-1.4 mg/dL Estimated Glomerular Filt Rate > 60 NOTE: For -Irish individuals, multiply the result by 1.210. Chronic [...] (Free>4and<10) Reviewed date:01/07/2024 05:15:41 PM Interpretation: Performing Lab:[facility], [address], [place] [phone] Notes/Report: PSA,Total (Free>4and<10) 0.94 0.00-4.00 ng/mL A [...] Cent[place] Alinity i Chemiluminescent Microparticle Immunoassay (CMIA) REASON FOR VISIT ANNUAL EXAM, No Covid symptoms MEDICATIONS Medication SIG (Take, Route, Frequency, Duration) Notes Start Date End Date Status Citalopram Hydrobromide 20 MG take 1 tablet by mouth every day Orally Once a day Active Atorvastatin Calcium 20 MG TAKE 1 TABLET BY MOUTH EVERY DAY Active Indomethacin 50 MG TAKE 1 CAPSULE BY [facility] TWICE DAILY WITH FOOD OR MILK for 30 Active Imitrex 100 MG 1 tablet at least 2 hours between doses as needed Orally Twice a day for 10 days 07/17/2022 Not-Taking SOCIAL HISTORY Tobacco Use: Social History Observation [...] ast year? No Points 0 Interpretation Negative VITAL SIGNS BMI 44.32 kg/m2 01/07/2024 Blood pressure systolic 102 mm Hg 01/07/20 24 Blood pressure diastolic 68 mm Hg 024 Height 67 in 01/07/2024 Weight 283 lbs 01/07/2024 weight is up 24 pounds since 09-20-23 Encounters Encounter Location Date Provider Diagnosis Waldo Fabian MD [address] [place] [address] [address] [place], [place] [phone] 01/07/2024 Waldo Fabian Encounter for therap eutic drug level monitoring Z51.81 ; Annual physical exam Z00.00 ; Hormone replacement therapy Z79.890 ; Testosterone deficiency E34.9 ; Pure hypercholesterolemia E78.00 ; Prediabetes R73.03 ; Dysthymia F34.1 ; Colon cancer screening Z12.11 and Depression screening Z13.31 ASSESSMENTS Encounter Date Diagnosis Assessment Notes Treatment Notes Treatment Clinical Notes 01/07/2024 Encounter for therap eutic drug level monitoring (ICD-10 - Z51.81) 01/07/2024 Annual physical exam (ICD-10 - Z00.00) labs reviewed and discussed with patient, additional labs pending 01/07/2024 Hormone replacement therapy (ICD-10 - Z79.890) 01/07/2024 Testosterone deficie ncy (ICD-10 - E34.9) 01/07/2024 Pure hypercholestero lemia (ICD-10 - E78.00) stable, will continue current regiment 01/07/2024 Prediabetes (ICD-10 - R73.03) stable, no need for medicatio at this time 01/07/2024 Dysthymia (ICD-10 - F34.1) s table, will continue current regiment 01/07/2024 Colon cancer screeni ng (ICD-10 - Z12.11) guaiac negative 01/07/2024 Depression screening (ICD-10 - Z13.31) negative screen PLAN OF TREATMENT Medication Medication Name Sig Start Date Stop Date Notes Citalopram Hydrobromide 20 MG take 1 tab let by mouth every day Orally Once a day Atorvastatin Calcium 20 MG TAKE 1 TABLET BY MOUTH EVERY DAY Treatment Notes Assessment Notes Annual physical exam labs reviewed and d iscussed with patient, additional labs pending Pure hypercholesterolemia stable, will c ontinue current regiment Prediabetes stable, no need for medicatio at this time Dysthymia stable, will continu e current regiment Colon cancer screening guaiac negative Depression screening negative screen Next Appt Details Follow Up: 6 Months, Reason: Provider Name:Waldo galloway, 01/04/2025 07:00:00 AM, [address], [address], [place], [place], [phone], Provider Name:Waldo Flores laverne, 01/11/2025 08:30:00 AM, [address], [address], [place], [place], [phone], Progress Notes * Examination Category Sub-Category Detail Notes General Examination GENERAL APPEARANCE: well dev eloped, well nourished, in no acute distress HEAD: normocephalic, atrau matic EYES: pupils equal, round, reactive to light and accommodation, sclera non-icteric EARS: normal THROAT: clear NECK/THYROID: neck supple, full ra nge of motion, no cervical lymphadenopathy, no bruits HEART: regular rate and rhy thm, S1, S2 normal, no murmurs LUNGS: clear to auscultatio n bilaterally ABDOMEN: soft, nontender, non distended, bowel sounds present, normal, no organomegaly , no masses palpable NEUROLOGIC: nonfocal, motor stre ngth normal upper and lower extremities, sensory exam intact SKIN: warm and dry, no karla picious lesions EXTREMITIES: no clubbing, cyanosi s, or edema MALE GENITOURINARY: with testicular atro phy RECTAL EXAM: normal tone, no exte rnal hemorrhoids, no masses palpable, prostate normal, stool guaiac negative ORAL CAVITY: mucosa moist History and Physical Notes * HPI (History of Present Illness) Category Sub-Category Detail Notes Depression Screening PHQ-9 Little inte rest or pleasure in doing things: Not at all Feeling down, depressed, or hopeless: No t at all Trouble falling or staying asleep, or sl eeping too much: Not at all Feeling tired or having little energy: N ot at all Poor appetite or overeating: Not at all Feeling bad about yourself o r that you are a failure, or have let yourself or your family down: Not at all Trouble concentrating on thi ngs, such as reading the newspaper or watching television: Not at all Moving or speaking so slowly that other people could have noticed; or the opposite, being so fidgety or restless that you have been moving around a lot more than usual: Not at all Thoughts that you would be b rocael off or of hurting yourself in some way: Not at all Total Score: 0 Interpretation and Intervention Depression Adebayo orozco Findings: Negative Follow-Up for Depression: : review of PH Q-9 found negative result, no follow-up needed SDOH Questions SDOH Questions In the past year have you been worried about losing housing?: No In the past year have you or any family members you live with been unable to get any of the following when it was really needed? Check all that apply:: None Communication Needs Communication Needs Does the patient have a hearing impairment: No Does the patient have a vision impairmen t?: No Does the patient have a cognition impair ment?: No
--- OUTSIDE RECORDS SUMMARY | 2024-08-22 17:23 | XMS_ITS ---
Author Organization aWldo Fabian MD Address [address] [place] [phone] Care Team Providers Care Microbiology Instructor Name Role Phone Rui Waldo Primary Care Provider ALLERGIES No Known Allergies REASON FOR VISIT 6 MO F/U MEDICATIONS Medication SIG (Take, Route, Frequency, Duration) Notes Start Date End Date Status Omeprazole 20 MG 1 capsule 1/2 to 1 h our before morning meal Orally Once a day for 30 day(s) Active Indomethacin 50 MG TAKE 1 CAPSULE BY [facility] TWICE DAILY WITH FOOD OR MILK for 30 Active Citalopram Hydrobromide 10 MG TAKE 1 TABLET BY MOUTH EVERY DAY Active Imitrex 100 MG 1 tablet at least 2 hours between doses as needed Orally Twice a day for 10 days 07/17/2022 Not-Taking Atorvastatin Calcium 20 MG TAKE 1 TABLET BY MOUTH EVERY DAY Active VITAL SIGNS BMI 42.13 kg/m2 07/13/2024 Blood pressure systolic 102 mm Hg 07/13/20 24 Blood pressure diastolic 64 mm Hg 024 Height 67 in 07/13/2024 Weight 269 lbs 07/13/2024 weight is down 14 pounds sin 01-07-24 Encounters Encounter Location Date Provider Diagnosis Waldo Fabian MD [address] [place] [address] [place] [phone] 07/13/2024 Waldo Fabian 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 wants to stay on meds, will continue current regiment 07/13/2024 Pure hypercholestero lemia (ICD-10 - E78.00) stable, will cntinue current regiment PLAN OF TREATMENT Medication Medication Name Sig Start Date Stop Date Notes Citalopram Hydrobromide 10 MG TAKE 1 TAB LET BY MOUTH EVERY DAY Atorvastatin Calcium 20 MG TAKE 1 TABLET BY MOUTH EVERY DAY Treatment Notes Assessment Notes Hypogonadotropic hypogonadism doing grea t on testosterone, will continue current regiment Prediabetes doing well with diet , no need for medication Dysthymia doing well. wants to stay on meds, will continue current regiment Pure hypercholesterolemia stable, will c ntinue current regiment Next Appt Details Provider Name:Waldo galloway, 01/04/2025 07:00:00 AM, [address] [place] [address], [address] [facility], [place], [place], [phone], Provider Name:Waldo galloway, 01/11/2025 08:30:00 AM, [address] [place] [address], [place] [address], [place], [place], [phone], Progress Notes * Examination Category Sub-Category Detail Notes General Examination GENERAL APPEARANCE: alert, w ell hydrated, in no distress , male HEAD: normocephalic HEART: no murmurs, rubs, ga llops , regular rate and rhythm LUNGS: no wheezes, rales, r honchi , good air movement , clear to auscultation bilaterally SKIN: good turgor
== END 2024-08-16 10:12 | disposition home or self-care (01) ==
PROVIDERS: PCP Internal Medicine; Visit Provider Internal Medicine Endocrinology, Diabetes & Metabolism
DX: E23.0 Hypopituitarism (principal)
CPT/HCPCS: 99213

== ENCOUNTER → 2024-08-16 09:58 | Outpatient (BNVA) | payer OTHER, SELFPAY | PROVIDERS: PCP Internal Medicine; Visit Provider Internal Medicine Endocrinology, Diabetes & Metabolism ==

== ENCOUNTER 2025-01-04 10:31 | Outpatient (REF) | payer OTHER, SELFPAY ==
[2025-01-04 11:18] LABS: Basophils Absolute Auto 0.1 X10*3/uL (0.0-0.2); Basophils Percent Auto 0.8 % (0-2); Eosinophils Absolute Auto 0.2 X10*3/uL (0.0-0.4); Eosinophils Percent Auto 2.4 % (0-4); Hematocrit 47.5 % (42.0-52.0); Hemoglobin 16.5 g/dl (14.0-18.0); Imm Gran Abs Auto 0.03 X10*3/uL (0.00-0.03); Imm Gran Pct Auto 0.3 % (0.0-0.4); Lymphocytes Absolute Auto 3.4 X10*3/uL (1.2-4.9); Lymphocytes Percent Auto 35.3 % (20-40); MANUAL DIFF FLAG SCAN; Mean Corpuscular HGB Conc 34.7 g/dl (31.0-36.0); Mean Corpuscular Hemoglobin 31.4 pg (27.0-33.0); Mean Corpuscular Volume 90.5 fL (80.0-98.0); Monocytes Absolute Auto 0.6 X10*3/uL (0.1-1.2); Monocytes Percent Auto 5.9 % (2-11); Neutrophils Absolute Auto 5.3 x10*3/uL (2.0-8.3); Neutrophils Percent Auto 55.3 % (45-73); PLT CLUMP 1; Red Blood Count 5.25 X10*6/uL (4.60-5.80); Red Cell Distribution Width 12.7 % (11.0-16.0); SCAN SMEAR FLAG 1
[2025-01-04 11:19] LABS: Estimated Average Glucose 114 mg/dL; Hemoglobin A1C 157.4909 umol/L; Hemoglobin A1c % 5.6 % (<6.0); Total Hemoglobin (HGBA1C) 4229.9041 umol/L
[2025-01-04 11:28] LABS: Alanine Aminotransferase 25 U/L (0-40); Albumin Level 3.9 g/dL (3.5-5.0); Alkaline Phosphatase 77 U/L (39-117); Anion Gap 9 (12-20); Aspartate Amino Transferase 32 U/L (5-37); Bilirubin Total 0.8 mg/dL (0.0-1.0); Blood Urea Nitrogen 15 mg/dL (9-16); Calcium 8.9 mg/dL (8.4-10.2); Carbon Dioxide 29 mmol/L (22-29); Chloride 104 mmol/L (96-108); Cholesterol 139 mg/dL (<200); Estimated Glomerular Filt Rate > 60; Glucose Fasting 98 mg/dL (60-99); HDL Cholesterol 29 mg/dL (>40); LDL Cholesterol Calculated 67 mg/dL (<100); Potassium 3.7 mmol/L (3.3-5.1); Sodium 138 mmol/L (135-145); Total Protein 7.1 g/dL (6.5-8.0); Triglycerides 219 mg/dL (<150)
[2025-01-04 11:41] LABS: PSA,Total (Free>4and<10) 0.74 ng/mL (0.00-4.00)
[2025-01-04 11:45] LABS: Mean Platelet Volume 13.8 fL (9.4-12.4); Platelet Count 121 X10*3/uL (160-400); White Blood Count 9.5 X10*3/uL (4.8-10.8)
[2025-01-04 11:46] LABS: SLIDE REVIEW VERIFIED
--- OUTSIDE RECORDS SUMMARY | 2025-01-04 12:11 | XMS_ITS ---
Author Organization Gareth Fabian MD Address [address] [place] [phone] Care Team Providers Care Desktop Support Technician Name Role Phone Ericadrian Gareth Primary Care Provider Allergies No Known Allergies REASON FOR VISIT 2 week Medications Medication SIG (Take, Route, Frequency, Duration) Notes Start Date End Date Status Atorvastatin Calcium 20 MG TAKE 1 TABLET BY MOUTH EVERY DAY Active Indomethacin 50 MG TAKE 1 CAPSULE BY [facility] TWICE DAILY WITH FOOD OR MILK [...] W/U Status Risk Notes Problem Hearing loss (52613120) Hearing loss (H91.90) Active confirmed Problem 72182933 Hypercholesterem ia (E78.00) Active confirmed Problem [id number] Testosterone deficiency in male (E29.1) Active confirmed Vital Signs Blood pressure systolic 122 mm Hg 01/05/20 25 Blood pressure diastolic 60 mm Hg 025 Height 67 in 01/04/2025 Weight 258 lbs 01/04/2025 BMI 40.4 kg/m2 01/04/2025 Encounters Encounter Location Date Provider Diagnosis Gareth Fabian MD [address] [place] [address] Drive [address] [place], [place] [phone] 01/04/2025 Gareth Fabian Surfer's ear, bilate ral [...] swimmer's ear Next Appt Details Provider Name:Gareth Flores ier, 01/11/2025 08:30:00 AM, [address] [facility] [address], [address], [place], [place], [phone], Progress Notes * GALLITO CANDELARIOOB:1980 ([age] yo M)Acc No.[id number]:01/04/2025 Progress Notes Patient:?DOMINICK CANDELARIO Provider:?Gareth Fabian MD :1980???Age:44 Y???Sex:Male Trevon e:01/04/2025 Address:[address], [id number] Subjective: * Chief Complaints: * ???1. 2 week. * HPI: ???Symptom(s):?patient is a 44 yo mle here for 2 week follow up visit/ hearing normally. ear drops helped. * ROS:?General/Constitutional:?Denies?Chills.?Denies?Fatigue.?Denies?Fever.?Denies?Headache.?ENT:?Denies?Sore throat.?Respiratory:?Denies?Cough.?Denies?Shortness of breath at rest.?Denies?Shortness of breath with exertion.?Gastrointestinal:?Denies?Diarrhea.?Denies?Nausea.? * Medical History:?Medical His tory Verified. * Medications:?Taking Omeprazo le 20 MG Capsule Delayed Release 1 capsule 1/2 to 1 hour before morning meal Orally Once a day , Taking Atorvastatin Calcium 20 MG Tablet TAKE 1 TABLET BY MOUTH EVERY DAY , Taking Indomethacin 50 MG Capsule TAKE 1 CAPSULE BY MOUTH TWICE DAILY WITH FOOD OR MILK , Taking Citalopram Hydrobromide 10 MG Tablet TAKE 1 TABLET BY MOUTH EVERY DAY , Not-Taking/PRN Ciprofloxacin-dexAMETHasone 0.3-0.1 % Suspension 4 drops into affected ear Otic Twice a day , Not-Taking/PRN Imitrex 100 MG Tablet 1 tablet at least 2 hours between doses as needed Orally Twice a day * Allergies:?N.K.D.A. Objective: * Vitals:?Ht: 67, Wt: 258, BMI :40.4, BP:122/60, Wt-k.03. * Examination: ???General Examination: ?GENERAL APPEARANCE:?pleasant, in no acute distress.?EARS:?both ears look normal has some canal cysts.? Assessment: * Assessment: 1.?Surfer's ear, bilateral - H61.813 (Primary)???2.?Hearing loss - H91.90???3.?Hypercholesteremia - E78.00???4.?Prediabetes - R73.03???5.?Testosterone deficiency in male - E29.1??? Plan: * Treatment: 2.?Hearing loss? Notes: has returned to normal with treatment of swimmer's ear?? * Procedure Codes:?09851 VENIP UNCT, ROUTINE* * * The named appointment provid er may or may not be the originator of this progress note, and it is not deemed complete until electronically signed by the appointment provider. Sign off status: Pending * Provider:?Gareth Fabian MD Date:?0 01/04/2025 Generated for Jona dupont/Lanette/Estheritting on:?01/04/2025 12:11 PM EDT History and Physical Notes * HPI (History [...]
--- OUTSIDE RECORDS SUMMARY | 2025-01-04 12:11 | XMS_ITS ---
Author Organization Gareth Fabian MD Address [address] [place], [place] [phone] Care Team Providers Care Orthopedic Technician Name Role Phone Gareth Fabian Primary Care Provider [phone] Results Component Value Reference Range Notes Complete Blood Count Auto Di ff (Not yet reviewed by provider) Interpretation: Performing Lab:[facility], [address] [place] [phone] Notes/Report: White Blood Count 9.5 4.8-10.8 X10*3/uL [...] 0.0-0.012 X10*3/uL CORRECTED REPORT CORRECTED REPORT Comprehensive [place]. Panel Fa st (Not yet reviewed by provider) Interpretation: Performing Lab:[address] [phone] Notes/Report: Sodium 138 135-145 mmol/L Potassium 3.7 [...] Alkaline Phosphatase 77 39-117 U/L Lipid Panel (Not yet reviewe d by provider) Interpretation: Performing Lab:[facility] [phone] Notes/Report: Triglycerides 219 <150 mg/dL Desirable Triglyceride: [...] in patients with liver disease. PSA,Total (Free>4and<10) (No t yet reviewed by provider) Interpretation: Performing Lab:[address] [phone] Notes/Report: PSA,Total (Free>4and<10) 0.74 0.00-4.00 ng/mL A [...] i Chemiluminescent Microparticle Immunoassay (CMIA) Hemoglobin A1c (Not yet revi ewed by provider) Interpretation: Performing Lab:[address] [phone] Notes/Report: Hemoglobin A1c % 5.6 <6.0 % [...] average glucose, using the formula of the O1X-Mmbufld Average Glucose study (ADAG), Diabetes Care, Vol.31,#8, 2007 REASON FOR VISIT FASTING LABS Encounters Encounter Location Date Provider Diagnosis Gareth Fabian MD [address] [place] [address] [place] [phone] 01/04/2025 Gareth Fabian Blood tests for rout ine general [...] Treatment Pending Test Test Name Order Date Complete Blood Count Auto Diff 5 Comprehensive [place]. Panel Fast 5 Lipid Panel 01/04/2025 PSA,Total (Free>4and<10) 01/04/2025 Microalbumin, Random 01/04/2025 Hemoglobin A1c 01/04/2025 UA ClnCatch+Micro w/rflx Cult 01/04/2025 Next Appt Details Provider Name:Gareth galloway, 01/11/2025 08:30:00 AM, [address] [place] [address], Suite [facility], [place], [place], [phone], Progress Notes * GALLITO CANDELARIOOB:1980 ([age] yo M)Acc No.[id number]:01/04/2025 Progress Note Patient:?KODAK DOMINICK Provider:?Gareth Fabian MD :1980???Age:44 Y???Sex:Male Trevon e:01/04/2025 Address:[address] [place], [id number] Subjective: * Chief Complaints: * ???1. FASTING LABS. * Medical History:? Objective: * Vitals:? Assessment: * Assessment: 1.?Blood tests for routine g eneral physical examination - Z00.00 (Primary)???2.?Pure hypercholesterolemia - E78.00???3.?Prediabetes - R73.03???4.?Hypotestosteronemia in male - E29.1??? Plan: * Treatment: 2.?Pure hypercholesterolemia ?LAB: Complete Blood Count Auto Diff (Collection Date & Time - 01/04/2025 07:00 AM) ?LAB: Comprehensive [place]. Panel Fast (Collection Date & Time - 01/04/2025 07:00 AM) ?LAB: Lipid Panel (Collection Date & Time - 01/04/2025 07:00 AM) ?LAB: PSA,Total (Free>4and<10) (Collection Date & Time - 01/04/2025 07:00 AM) ?LAB: Microalbumin, Random ?LAB: Hemoglobin A1c (Collection Date & Time - 01/04/2025 07:00 AM) ?LAB: UA ClnCatch+Micro w/rflx Cult 3.?Prediabetes?LAB: Complete Blood Count Auto Diff (Collection Date & Time - 01/04/2025 07:00 AM) ?LAB: Comprehensive [place]. Panel Fast (Collection Date & Time - 01/04/2025 07:00 AM) ?LAB: Lipid Panel (Collection Date & Time - 01/04/2025 07:00 AM) ?LAB: PSA,Total (Free>4and<10) (Collection Date & Time - 01/04/2025 07:00 AM) ?LAB: Microalbumin, Random ?LAB: Hemoglobin A1c (Collection Date & Time - 01/04/2025 07:00 AM) ?LAB: UA ClnCatch+Micro w/rflx Cult 4.?Hypotestosteronemia in ma le?LAB: Complete Blood Count Auto Diff (Collection Date & Time - 01/04/2025 07:00 AM) ?LAB: Comprehensive [place]. Panel Fast (Collection Date & Time - 01/04/2025 07:00 AM) ?LAB: Lipid Panel (Collection Date & Time - 01/04/2025 07:00 AM) ?LAB: PSA,Total (Free>4and<10) (Collection Date & Time - 01/04/2025 07:00 AM) ?LAB: Microalbumin, Random ?LAB: Hemoglobin A1c (Collection Date & Time - 01/04/2025 07:00 AM) ?LAB: UA ClnCatch+Micro w/rflx Cult * Procedure Codes:?39010 VENIP UNCT, ROUTINE* * * The named appointment provid er may or may not be the originator of this progress note, and it is not deemed complete until electronically signed by the appointment provider. Sign off status: Pending * Provider:?Gareth Fabian MD Date:?0 01/04/2025 Generated for Jona dupont/Lanette/eTransmitting on:?01/04/2025 12:11 PM EDT
--- OUTSIDE RECORDS SUMMARY | 2025-01-04 12:12 | XMS_ITS | Patient Health Record ---
Author Organization Gareth Fabian MD Address [address] [place], [place] [phone] Care Team Providers Care Balancer Scale Name Role Phone Gareth Fabian Primary Care Provider Allergies No Known Allergies Results Component Value Reference Range Notes Complete Blood Count Auto Di ff (Not yet reviewed by provider) Interpretation: Performing Lab:[facility], [address] [place] [phone] Notes/Report: White Blood Count 9.5 4.8-10.8 X10*3/uL [...] 0.0-0.012 X10*3/uL CORRECTED REPORT CORRECTED REPORT Comprehensive [place]. Panel Fa (Not yet reviewed by provider) Interpretation: Performing Lab:[address] [phone] Notes/Report: Sodium 138 135-145 mmol/L Potassium 3.7 [...] yet reviewe d by provider) Interpretation: Performing Lab:[facility] [address] [address] Notes/Report: Triglycerides 219 <150 mg/dL Desirable Triglyceride: [...] t yet reviewed by provider) Interpretation: Performing Lab:[address] [address] Notes/Report: PSA,Total (Free>4and<10) 0.74 0.00-4.00 ng/mL A [...] yet revi ewed by provider) Interpretation: Performing Lab:[address] [address] Notes/Report: Hemoglobin A1c % 5.6 <6.0 % [...] average glucose, using the formula of the H7R-Pkuzfcv Average Glucose study (ADAG), Diabetes Care, Vol.31,#8, Apr. 2007 Occult Blood, Stool, Guaiac Reviewed date:01/07/2024 11:44:12 AM Interpretation:Negative Performing Lab: Notes/Report: Negative Occult Blood, Stool, Guaiac Neg Complete Blood Count Auto Di ff Reviewed date:01/07/2024 07:45:14 PM Interpretation: Performing Lab:[facility], [address] [place] [phone] Notes/Report: White Blood Count 7.4 4.8-10.8 X10*3/uL [...] 0.0-0.012 X10*3/uL CORRECTED REPORT CORRECTED REPORT Comprehensive [place]. Panel Fa st Reviewed date:01/07/2024 07:44:29 PM Interpretation: Performing Lab:[facility], [address] [place] [phone] Notes/Report: Sodium 137 135-145 mmol/L Potassium 4.0 3.3-5.1 mmol/L Chloride 102 96-108 mmol/L Carbon Dioxide 27 22-29 mmol/L Anion Gap 12 12-20 Blood Urea Nitrogen 15 9-16 mg/dL Creatinine 0.80 0.5-1.4 mg/dL Estimated Glomerular Filt Rate > 60 NOTE: For -Russian individuals, multiply the result by 1.210. Chronic [...] (Free>4and<10) Reviewed date:01/07/2024 05:15:41 PM Interpretation: Performing Lab:[facility], [address] [place] [phone] Notes/Report: PSA,Total (Free>4and<10) 0.94 0.00-4.00 ng/mL A [...] [place] Alinity i Chemiluminescent Microparticle Immunoassay (CMIA) Liver Panel Reviewed date:07/08/2024 12:57:38 PM Interpretation: Performing Lab:[facility], [address] [place] [phone] Notes/Report: Bilirubin Total 0.5 0.0-1.0 mg/dL Bilirubin Direct 0.2 0.0-0.5 mg/dL Aspartate Amino Transferase 57 5-37 U/L Alanine Aminotransferase 33 0-40 U/L Total Protein 7.5 6.5-8.0 g/dL Albumin Level 4.4 3.5-5.0 g/dL Alkaline Phosphatase 87 39-117 U/L Glucose Fasting Reviewed date:07/08/2024 12:55:56 PM Interpretation: Performing Lab:[facility], [address] [place] [phone] Notes/Report: Glucose Fasting 128 60-99 mg/dL A fasting glucose of 126 mg/dl or greater on more than one occasion is considered diagnostic of diabetes. Lipid Panel with Reflex Reviewed date:07/08/2024 12:55:36 PM Interpretation: Performing Lab:[facility], [address] [place] [phone] Notes/Report: Triglycerides 261 <150 mg/dL Desirable Triglyceride: [...] A1c Reviewed date:07/08/2024 12:55:26 PM Interpretation: Performing Lab:[facility], [address] [place] [phone] Notes/Report: Hemoglobin A1c % 5.7 <6.0 % [...] average glucose, using the formula of the G2T-Xtjryxv Average Glucose study (ADAG), Diabetes Care, Vol.31,#8, 2007 SLIDE REVIEW Reviewed date:01/07/2024 05:17:02 PM Interpretation: Performing Lab:[facility], [address] [place] [phone] Notes/Report: SLIDE REVIEW VERIFIED [place] Reviewed date:07/08/2024 12:55:46 PM Interpretation: Performing Lab:[facility], [address] [place] [phone] Notes/Report: Ramon Hill See Note Specimen held untested for 24 hours; Call to request Chemistry testing. Hemoglobin Reviewed date:08/03/2024 05:18:02 PM Interpretation: Performing Lab:[facility], [address] [place] [phone] Notes/Report: Hemoglobin 16.8 14.0-18.0 g/dl Hematocrit Reviewed date:08/03/2024 05:16:27 PM Interpretation: Performing Lab:[facility], [address] [place] [phone] Notes/Report: Hematocrit 46.6 42.0-52.0 % Testosterone, Free/Total Reviewed date:08/13/2024 02:45:14 PM Interpretation: Performing Lab:[facility], [address] [place] [phone] Notes/Report: Testosterone, Total 824 734-4279 ng/dL For additional information, please refer to http://education.[employer].com/faq/ TotalTestosteroneLCMSM HVSA335 (This link is being provided for informational/ educational purposes only.) This test was developed and its analytical performance characteristics have been determined by [facility] [place], [place]. It has not been cleared or approved by the U.S. Food and Drug Administration. This assay has been validated pursuant to the CLIA regulations and is used for clinical purposes. Testosterone, Free 184.9 35.0-155.0 pg/mL This test was developed and its analytical performance characteristics have been determined by [facility] [place], [place]. It has not been cleared or approved by the U.S. Food and Drug Administration. This assay has been validated pursuant to the CLIA regulations and is used for clinical purposes. THIS TEST WAS PERFORMED AT: [facility] GASPER POSADA MD,PHD SLIDE REVIEW (Not yet review ed by provider) Interpretation: Performing Lab:[facility], [address] [place] [phone] Notes/Report: SLIDE REVIEW VERIFIED Reason For Referral No Information Medications Medication SIG (Take, Route, Frequency, Duration) Notes Start Date End Date Status Omeprazole 20 MG 1 capsule 1/2 to 1 h our before morning meal Orally Once a day for 30 day(s) Active Atorvastatin Calcium 20 MG TAKE 1 TABLET BY MOUTH EVERY DAY Active Indomethacin 50 MG TAKE 1 CAPSULE BY [facility] TWICE DAILY WITH FOOD OR MILK [...] a day for 10 days 07/17/2022 Not-Taking Immunizations Vaccine Route Administration Date Status Comme nts [...] Fluarix Quadrivalent - 150 Unknown 09/20/2023 Refused Social History Tobacco Use: Social History Observation Description Date Details (start date - stop date) Former Smoker NA - NA Tobacco Use/Smoking Question Answer Notes Patient is a former smoker How long has it been since y ou last smoked? > 10 years Additional Findings: Tobacco Non-User Fo rmer smoker, currently using no form of tobacco Alcohol Screen Question Answer Notes Did you have a drink containing alcohol in the p ast year? 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) Active confirmed Problem 327663793 Elevated triglyc erides with high cholesterol (E78.2) Active confirmed Problem 67868031 Dysthymia (F34.1) Active confirmed Problem 265776869 Moderate episode of recurrent major depressive disorder (F33.1) Active confirmed Problem 586320055 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) Active confirmed Problem Hearing loss (84945197) Hearing loss (H91.90) Active confirmed Problem 174781601 Prediabetes (R73.03) Active confirmed Problem 447868375 Pure hypercholesterolemia (E78.00) Active confirmed Problem 10078939 Hypercholesterem ia (E78.00) Active confirmed Problem 96968884 RUPA (obstructive sleep apnea) (G47.33) Active confirmed Problem 105600940 BMI 45.0-49.9, a dult (Z68.42) Active confirmed Problem 048378514 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) Active confirmed Problem 26799344 Hypogonadotropic hypogonadism (E23.0) Active confirmed Problem 4490451588464 Hypotestosterone michael in male (E29.1) Active confirmed Problem 3146102960304 Testosterone deficiency in male (E29.1) Active confirmed Vital Signs Blood pressure diastolic 60 mm Hg 01/04/2025 Height 67 in 01/04/2025 Blood pressure systolic 122 mm Hg 01/04/2025 Weight 258 lbs 01/04/2025 BMI 40.4 kg/m2 01/04/2025 Encounters Encounter Location Date Provider Diagnosis Gareth Fabian MD [address] [place] [id number] 01/04/2025 Gareth Fabian Blood tests for rout ine general physical examination Z00.00 ; Pure hypercholesterolemia E78.00 ; Prediabetes R73.03 and Hypotestosteronemia in male E29.1 Gareth Fabian MD [address] [place] [id number] 01/04/2025 Gareth Fabian Surfer's ear, bilate ral H61.813 ; Hearing loss H91.90 ; Hypercholesteremia E78.00 ; Prediabetes R73.03 and Testosterone deficiency in male E29.1 Gareth Fabian MD [address] [place] [id number] 01/07/2024 Gareth Fabian Encounter for therap eutic drug level monitoring Z51.81 ; Annual physical exam Z00.00 ; Hormone replacement therapy Z79.890 ; Testosterone deficiency E34.9 ; Pure hypercholesterolemia E78.00 ; Prediabetes R73.03 ; Dysthymia F34.1 ; Colon cancer screening Z12.11 and Depression screening Z13.31 Gareth Fabian MD [address] [place] [id number] 07/07/2024 Gareth Fabian Pure hypercholestero lemia E78.00 and Prediabetes R73.03 Gareth Fabian MD [address] [place] [id number] 07/13/2024 Gareth Fabian Hypogonadotropic hypogonadism E23.0 ; Prediabetes R73.03 ; Dysthymia F34.1 and Pure hypercholesterolemia E78.00 Gareth Fabian MD [address] [place] [id number] 12/05/2024 Gareth Fabian Swimmer's ear, right ear H60.331 Gareht Fabian MD [address] [place] [id number] 12/12/2024 Gareth Fabian Swimmer's ear, right ear H60.331 Assessments Encounter Date Diagnosis (ICD Code) Assessment Notes Treatment Notes Treatment Clinical Notes Section Notes 01/04/2025 [address] tests for rout ine general physical examination (ICD-10 - Z00.00) 01/04/2025 Surfer's ear, bilate ral (ICD-10 - H61.813) no treatment needed 01/04/2025 Hearing loss (ICD-10 - H91.90) has returned to normal with treatment of swimmer's ear 01/07/2024 Encounter for therapeutic drug level monitoring (ICD-10 - Z51.81) 01/07/2024 Annual physical exam (ICD-10 - Z00.00) labs reviewed and discussed with patient, additional labs pending 07/07/2024 Pure hypercholesterolemia (ICD-10 - E78.00) 07/07/2024 Prediabetes (ICD-10 - R73.03) 07/13/2024 Hypogonadotropic hypogonadism (ICD-10 - E23.0) doing great on testosterone, will continue current regiment 07/13/2024 Prediabetes (ICD-10 - R73.03) doing well with diet, no need for medication 12/05/2024 Swimmer's ear, right ear (ICD-10 - H60.331) 12/12/2024 Swimmer's ear, right ear (ICD-10 - H60.331) will use drops for another week then stop. will recheck in 2 weeks. also put on flonase 01/04/2025 Pure hypercholesterolemia (ICD-10 - E78.00) 01/04/2025 Hypercholesteremia (ICD-10 - E78.00) 01/07/2024 Hormone replacement therapy (ICD-10 - Z79.890) 07/13/2024 Dysthymia (ICD-10 - F34.1) doing well. wants to stay on meds, will continue current regiment 01/04/2025 Prediabetes (ICD-10 - R73.03) 01/04/2025 Prediabetes (ICD-10 - R73.03) 01/07/2024 Testosterone deficie ncy (ICD-10 - E34.9) 07/13/2024 Pure hypercholesterolemia (ICD-10 - E78.00) stable, will cntinue current regiment 01/04/2025 Hypotestosteronemia in male (ICD-10 - E29.1) 01/04/2025 Testosterone deficie ncy in male (ICD-10 - E29.1) 01/07/2024 Pure hypercholesterolemia (ICD-10 - E78.00) stable, will continue current regiment 01/07/2024 Prediabetes (ICD-10 - R73.03) stable, no need for medicatio at this time 01/07/2024 Dysthymia (ICD-10 - F34.1) stable, will continue current regiment 01/07/2024 Colon cancer screeni ng (ICD-10 - Z12.11) guaiac negative 01/07/2024 Depression screening (ICD-10 - Z13.31) negative screen Plan Of Treatment Pending Test Test Name Order Date CULTURE, STOOL, ANAMARIA/SHIG/CAMPY AND SHIGA TOXINS EIA W/RFL E.COLI O157 CULT 02/14/2021 Complete Blood Count Auto Diff Comprehensive [place]. Panel Fast Lipid Panel 01/04/2025 PSA,Total (Free>4and<10) 01/04/2025 Microalbumin, Random 01/04/2025 Hemoglobin A1c 01/04/2025 SLIDE REVIEW 01/04/2025 UA ClnCatch+Micro w/rflx Cult 01/04/2025 Next Appt Details Provider Name:Gareth lozar, 01/11/2025 08:30:00 AM, [address] [place] [address], [address], [place], [place], [phone], Insurance Providers Payer Name Payer Address Payer Phone Subscriber Number Group Number Insured Name Patient Relationship to Insured Coverage Start Date Coverage End Date [employer] Plan Administrators [address] MD [place] [id number] DOMINICK CANDELARIO Self - patient is the insured Medical (General) History Surgical History Surgery Date(Month/Year) crushed finger tip 2012 undescending testicl
--- OUTSIDE RECORDS SUMMARY | 2025-01-04 12:12 | XMS_ITS ---
Author Organization Gareth Fabian MD Address [address] [place] [phone] Care Team Providers Care Artificial Flowers Dyer Name Role Phone Ericadrian Gareth Primary Care [...] Indomethacin 50 MG TAKE 1 CAPSULE BY [facility] TWICE DAILY WITH FOOD OR MILK for 30 Active Atorvastatin Calcium 20 MG TAKE 1 TABLET BY MOUTH EVERY DAY Active Vital Signs Blood pressure systolic 104 mm Hg 12/13/19 25 Blood pressure diastolic 60 mm Hg 025 Height 67 in 12/12/2024 Weight 257 lbs 12/12/2024 BMI 40.25 kg/m2 12/12/2024 weight is down 3 pounds sin e 12-05-24 Encounters Encounter Location Date Provider Diagnosis Gareth Fabian MD [address] [place], [place] [id number] 12/12/2024 Gareth Fabian Swimmer's ear, right ear [...] Follow Up: 2 Weeks, Reason: Provider Name:Gareth Flores ier, 01/11/2025 08:30:00 AM, [address], [address], [place], [place], [phone], Progress Notes * MICHAEL CANDELARIOMARTHAOB:1980 ([age] yo M)Acc No.[id number]:12/12/2024 Progress Notes Patient:?DOMINICK CANDELARIO Provider:?Gareth Fabian MD :1980???Age:44 Y???Sex:Male Trevon e:12/12/2024 Address:[address], [id number] Subjective: * Chief Complaints: * ???1 WK F/U * HPI: ???Symptom(s):?patient is a 44 yo male here for one week follow up visit./ is doing better. hearing is coming back. * ROS:?General/Constitutional:?Denies?Chills.?Denies?Fatigue.?Denies?Fever.?Denies?Headache.?Respiratory:?Denies?Cough.?Denies?Shortness of breath at rest.?Denies?Shortness of breath with exertion.?Gastrointestinal:?Denies?Nausea.? * Medical History:? * Surgical History:? * Hospitalization/Major Diagno stic Procedure:? * Medications:?TakingOmeprazol e 20 MG Capsule Delayed Release 1 capsule [...] reviewed and reconciled with the patient * Allergies:?N.K.D.A.yes[Aller gies Verified] Objective: * Vitals:?Ht: 67, Wt: 257, BMI :40.25, BP:104/60, Wt-k.57. weight is down 3 pounds since 12-05-24. * Examination: ???General Examination: ?GENERAL APPEARANCE:?alert, well hydrated, in no distress hearing? better today.?EARS:?LEFT EAR normal, RIGHT EAR with canal white discharge in canal which is probably the drops..? Assessment: * Assessment: 1.?Swimmer's ear, right ear - H60.331 (Primary)??? Plan: * Treatment: * Procedure Codes:? * Follow Up:?2 Weeks * * Sign off status: Completed true * Provider:?Gareth Fabian MD Date:?0 12/12/2024 Generated for Maríai kiah/Lanette/eTransmitting on:?01/04/2025 12:11 PM EDT History and Physical [...]
== END 2025-01-04 10:32 | disposition home or self-care (01) ==
LOC: HO.LNP 10:31
PROVIDERS: Visit Provider Internal Medicine
DX: Z00.00 Encounter for general adult medical examination without abnormal findings (principal); Z12.5 Encounter for screening for malignant neoplasm of prostate; R73.03 Prediabetes; E78.00 Pure hypercholesterolemia, unspecified
CPT/HCPCS: 80053; 80061; 83036; 84153; 85025

== ENCOUNTER 2025-03-13 07:45 | Outpatient (REF) | payer OTHER, SELFPAY ==
--- OUTSIDE RECORDS SUMMARY | 2025-03-05 11:00 | XMS_ITS ---
Author Organization Waldo Fabian MD Address [address] [place] [phone] Care Team Providers Care Patient Financial Counselor Name Role Phone Rui Waldo Primary Care [...] Indomethacin 50 MG TAKE 1 CAPSULE BY [facility] TWICE DAILY WITH FOOD OR MILK for 30 Active Atorvastatin Calcium 20 MG TAKE 1 TABLET BY MOUTH EVERY DAY Active Vital Signs Blood pressure systolic 122 mm Hg 03/05/20 25 Blood pressure diastolic 78 mm Hg 025 Height 67 in 03/05/2025 Weight 252 lbs 03/05/2025 BMI 39.46 kg/m2 03/05/2025 weight is down 4 pounds [facility] e 01-11-25 Encounters Encounter Location Date Provider Diagnosis Waldo Fabian MD [address] [place] [phone] 03/05/2025 Waldo Fabian Diastasis recti M62.08 Assessments Encounter Date Diagnosis (ICD Code) Assessment Notes Treatment Notes Treatment Clinical Notes Section Notes 03/05/2025 Diastasis recti (ICD-10 - M62.08) reassurance. no treatment necessary. Plan Of Treatment Treatment Notes Assessment Notes Diastasis recti reassurance. no royce tment necessary. Next Appt Details Provider Name:Waldo galloway, 04/13/2025 09:00:00 AM, [address] [place] [address], [address], [phone], Provider Name:Waldo galloway, 07/20/2025 07:30:00 AM, [address] [place] [address], [address], [phone], Provider Name:Waldo galloway, 07/27/2025 09:00:00 AM, [address] [place] [address], [address], [phone], Provider Name:Waldo galloway, 01/07/2026 07:30:00 AM, [address] [place] [address], [address], [phone], Provider Name:Waldo lozar, 01/14/2026 09:30:00 AM, [address] [place] [address], [address], [phone], Progress Notes * GALLITO CANDELARIOOB:1980 ([age] yo M)Acc No.[id number]:03/05/2025 Progress Notes Patient: DOMINICK FOOTE Provider: Vikas Fabian MD :1980 A ge:45 Y S ex:Male Date:03/05/2025 Address:[place], [id number] Subjective: * Chief Complaints: * ? Hernia umbilical * HPI: S ymptom(s): patient is a 45 yo male here for evaluation of ? hernia. * ROS: G eneral/Constitutional: Denies C hills. [...] MD Date: 0 03/05/2025 Generated for Jona dupont/Lanette/Forrestsmitting on: 0 03/13/2025 11:29 AM EDT History and Physical Notes * HPI [...]
[2025-03-13 10:25] LABS: MANUAL DIFF FLAG NO
[2025-03-13 11:01] LABS: Hematocrit 47.1 % (42.0-52.0); Hemoglobin 16.7 g/dl (14.0-18.0); Imm Gran Abs Auto 0.02 X10*3/uL (0.00-0.03); Imm Gran Pct Auto 0.3 % (0.0-0.4); Lymphocytes Absolute Auto 2.8 X10*3/uL (1.2-4.9); Mean Corpuscular HGB Conc 35.5 g/dl (31.0-36.0); Mean Corpuscular Hemoglobin 31.9 pg (27.0-33.0); Mean Corpuscular Volume 89.9 fL (80.0-98.0); NRBC Abs Auto 0.000 X10*3/uL (0.0-0.012); NRBC Pct Auto 0.0 /100WBC (0.0-0.2); Platelet Count 127 X10*3/uL (160-400); Red Blood Count 5.24 X10*6/uL (4.60-5.80); White Blood Count 7.8 X10*3/uL (4.8-10.8)
== END 2025-03-13 07:46 | disposition home or self-care (01) ==
LOC: HO.LNP 07:45
PROVIDERS: Visit Provider Internal Medicine
DX: D69.6 Thrombocytopenia, unspecified (principal)
CPT/HCPCS: 85025

== ENCOUNTER 2025-07-20 11:39 | Outpatient (REF) | payer OTHER, SELFPAY ==
--- OUTSIDE RECORDS SUMMARY | 2024-12-05 07:45 | XMS_ITS ---
Author Organization Waldo aFbian MD Address [address] [place] [phone] Care Team Providers Care Pole Peeling Machine Operator Helper Name Role Phone Rui Waldo Primary Care Provider Allergies No Known Allergies REASON FOR VISIT blocked ears Medications Medication SIG (Take, Route, Frequency, Duration) Notes Start Date End Date Status Atorvastatin Calcium 20 MG TAKE 1 TABLET BY MOUTH EVERY DAY Active Indomethacin 50 MG TAKE 1 CAPSULE BY [facility] TWICE DAILY WITH FOOD OR MILK for 30 Active Citalopram Hydrobromide 10 MG TAKE 1 TABLET BY MOUTH EVERY DAY for 90 Active Ciprofloxacin-dexAMETHaso ne 0.3-0.1 % 4 drops into affected ear Otic Twice a day for 7 days 12/05/2024 Active Imitrex 100 MG 1 tablet at least 2 hours between doses as needed Orally Twice a day for 10 days 07/17/2022 Not-Taking Omeprazole 20 MG 1 capsule 1/2 to 1 h our before morning meal Orally Once a day for 30 day(s) Active Vital Signs Blood pressure systolic 112 mm Hg 12/06/19 25 Blood pressure diastolic 66 mm Hg 025 Height 67 in 12/05/2024 Weight 260 lbs 12/05/2024 BMI 40.72 kg/m2 12/05/2024 Encounters Encounter Location Date Provider Diagnosis Waldo Fabian MD [address] [place] [address] [place] [phone] 12/05/2024 Waldo Fabian Swimmer's ear, right ear H60.331 Assessments Encounter Date Diagnosis (ICD Code) Assessment Notes Treatment Notes Treatment Clinical Notes Section Notes 12/05/2024 Swimmer's ear, right ear (ICD-10 - H60.331) Plan Of Treatment Medication Medication Name Sig Start Date Stop Date Notes Ciprofloxacin-dexAMETHasone 0.3-0.1 % 4 drops into affected ear Otic Twice a day for 7 days 12/05/2024 Next Appt Details Follow Up: 1 Week, Reason: Provider Name:Waldo galloway, 07/27/2025 09:00:00 AM, [address] [place] [address], [address] [place] [address], [phone], Provider Name:Waldo galloway, 01/07/2026 07:30:00 AM, [address] [place] [address], [address], [phone], Provider Name:Waldo galloway, 01/14/2026 09:30:00 AM, [address] [place] [address], [address], [phone], Progress Notes * GALLITO CANDELARIOOB:1980 ([age] yo M)Acc No.[id number]:12/05/2024 Progress Notes Patient: DOMINICK FOOTE Provider: Vikas Fabian MD :1980 A ge:44 Y S ex:Male Date:12/05/2024 Address:[address] [id number] Subjective: * Chief Complaints: * B locked ears * HPI: S ymptom(s): patient is a 44 yo male here with complaint of blocked ears. * ROS: G eneral/Constitutional: Denies C hills. D enies F atigue. D enies F ever. D enies H eadache. E NT: Patient complaining of c /o blocked ears. A dmits?Blocked ear(s). A dmits D ecreased hearing. A dmits E ar pain. D enies?Sore throat. R espiratory: Denies C ough. D enies S hortness of breath at rest. D enies S hortness of breath with exertion. G astrointestinal: Denies D iarrhea. D enies N ausea. M usculoskeletal: Patient denies m uscle aches. P eripheral Vascular: Patient denies r ed and blue toes. * Medical History: * Surgical History: * Hospitalization/Major Diagno stic Procedure: * Medications: T akingOmeprazole 20 MG Capsule Delayed Release 1 capsule 1/2 to 1 hour before morning meal Orally Once a day Atorvastatin Calcium 20 MG Tablet TAKE 1 TABLET BY MOUTH EVERY DAY Indomethacin 50 MG Capsule TAKE 1 CAPSULE BY MOUTH TWICE DAILY WITH FOOD OR MILK Citalopram Hydrobromide 10 MG Tablet TAKE 1 TABLET BY MOUTH EVERY DAY Taking Omeprazole 20 MG Capsule Delayed Release 1 capsule 1/2 to 1 hour before morning meal Orally Once a day Taking Atorvastatin Calcium 20 MG Tablet TAKE 1 TABLET BY MOUTH EVERY DAY Taking Indomethacin 50 MG Capsule TAKE 1 CAPSULE BY MOUTH TWICE DAILY WITH FOOD OR MILK Taking Citalopram Hydrobromide 10 MG Tablet TAKE 1 TABLET BY MOUTH EVERY DAY Not-Taking/PRNImitrex 100 MG Tablet 1 tablet at least 2 hours between doses as needed Orally Twice a day Not-Taking/PRN Imitrex 100 MG Tablet 1 tablet at least 2 hours between doses as needed Orally Twice a day * Allergies: N .K.D.A.yes[Allergies Verified] Objective: * Vitals: H t: 67, Wt: 260, BMI:40.72, BP:112/66, Wt-k.94. * Examination: G eneral Examination: GENERAL APPEARANCE: a lert, well hydrated, in no distress.? EARS: r t ear with decreased hearing. there is a small amount of wax and some white exudate and canal is red and tenderness to ear left ear with minimal wax.? Assessment: * Assessment: 1. S jeremias's ear, right ear - H60.331 (Primary) Plan: * Treatment: * Procedure Codes: * Follow Up: 1 Week * * Sign off status: Completed true * Provider: Vikas Fabain MD Date: 0 12/05/2024 Generated for Maríai ng/Lanette/eTransmitting on: 1 09/19/2024 02:07 PM EST History and Physical Notes * HPI (History of Present Illness) Category Sub-Category Detail Notes Category Not es Symptom(s) patient is a 44 yo male here with complaint of blocked ears Examination Category Sub-Category Detail Notes Category Not es General Examination GENERAL APPEARANCE: alert, w ell hydrated, in no distress EARS: rt ear with decrease d hearing. there is a small amount of wax and some white exudate and canal is red and tenderness to ear left ear with minimal wax
--- OUTSIDE RECORDS SUMMARY | 2024-12-12 08:15 | XMS_ITS ---
Author Organization Gareth Fabian MD Address [address] [place] [phone] Care Team Providers Care Hairspring Fabrication Supervisor Name Role Phone Ericadrian Gareth Primary Care Provider Allergies No Known Allergies REASON FOR VISIT 1 WK F/U Medications Medication SIG (Take, Route, Frequency, Duration) Notes Start Date End Date Status Omeprazole 20 MG 1 capsule 1/2 to 1 h our before morning meal Orally Once a day for 30 day(s) Active Imitrex 100 MG 1 tablet at least 2 hours between doses as needed Orally Twice a day for 10 days 07/17/2022 Not-Taking Ciprofloxacin-dexAMETHaso ne 0.3-0.1 % 4 drops into affected ear Otic Twice a day for 7 days 12/05/2024 Active Citalopram Hydrobromide 10 MG TAKE 1 TABLET BY MOUTH EVERY DAY for 90 Active Indomethacin 50 MG TAKE 1 CAPSULE BY [facility] TWICE DAILY WITH FOOD OR MILK for 30 Active Atorvastatin Calcium 20 MG TAKE 1 TABLET BY MOUTH EVERY DAY Active Vital Signs Blood pressure systolic 104 mm Hg 12/13/19 25 Blood pressure diastolic 60 mm Hg 025 Height 67 in 12/12/2024 Weight 257 lbs 12/12/2024 BMI 40.25 kg/m2 12/12/2024 weight is down 3 pounds [facility] e 12-05-24 Encounters Encounter Location Date Provider Diagnosis Gareth Fabian MD [address] [place] [address] [place] [phone] 12/12/2024 Gareth Fabian Swimmer's ear, right ear H60.331 Assessments Encounter Date Diagnosis (ICD Code) Assessment Notes Treatment Notes Treatment Clinical Notes Section Notes 12/12/2024 Swimmer's ear, right ear (ICD-10 - H60.331) will use drops for another week then stop. will recheck in 2 weeks. also put on flonase Plan Of Treatment Treatment Notes Assessment Notes Swimmer's ear, right ear will use drops for another week then stop. will recheck in 2 weeks. also put on flonase Next Appt Details Follow Up: 2 Weeks, Reason: Provider Name:Gareth galloway, 07/27/2025 09:00:00 AM, [address] [place] [address], Suite [facility], [place], [place], [phone], Provider Name:Gareth galloway, 01/07/2026 07:30:00 AM, [address] [place] [address], [address] [place] [address], [phone], Provider Name:Gareth galloway, 01/14/2026 09:30:00 AM, [address] [place] [address], Suite [facility], [place], [place], [phone], Progress Notes * GALLITO CANDELARIOOB:1980 ([age] yo M)Acc No.[id number]:12/12/2024 Progress Notes Patient: DOMINICK FOOTE Provider: Vikas Fabian MD :1980 A ge:44 Y S ex:Male Date:12/12/2024 [id number] Subjective: * Chief Complaints: * 1 WK F/U * HPI: S ymptom(s): patient is a 44 yo male here for one week follow up visit./ is doing better. hearing is coming back. * ROS: G eneral/Constitutional: Denies Latricia hills. D enies F atigue. D enies F ever. D enies H eadache. R espiratory: Ellyn Rome ough. D enies S hortness of breath at rest. D enies S hortness of breath with exertion. G astrointestinal: Denies N ausea. * Medical History: * Surgical History: * [...] TAKE 1 TABLET BY MOUTH EVERY DAY Ciprofloxacin-dexAMETHasone 0.3-0.1 % Suspension 4 drops into affected ear Otic Twice a day Taking Omeprazole 20 MG Capsule Delayed Release 1 capsule 1/2 to 1 hour before morning meal Orally Once a day Taking Atorvastatin Calcium 20 MG Tablet TAKE 1 TABLET BY MOUTH EVERY DAY Taking Indomethacin 50 MG Capsule TAKE 1 CAPSULE BY MOUTH TWICE DAILY WITH FOOD OR MILK Taking Citalopram Hydrobromide 10 MG Tablet TAKE 1 TABLET BY MOUTH EVERY DAY Taking Ciprofloxacin-dexAMETHasone 0.3-0.1 % Suspension 4 drops into affected ear Otic Twice a day Not-Taking/PRNImitrex 100 MG Tablet 1 tablet at least 2 hours between doses as needed Orally Twice a day Medication List reviewed and reconciled with the patientNot-Taking/PRN Imitrex 100 MG Tablet 1 tablet at least 2 hours between doses as needed Orally Twice a day Medication List reviewed and reconciled with the patient * Allergies: N .K.D.A.yes[Allergies Verified] Objective: * Vitals: H t: 67, Wt: 257, BMI:40.25, BP:104/60, Wt-k.57. weight is down 3 pounds since 12-05-24. * Examination: G eneral Examination: GENERAL APPEARANCE: a lert, well hydrated, in no distress hearing better today. EARS: L EFT EAR normal, RIGHT EAR with canal white discharge in canal which is probably the drops.. Assessment: * Assessment: 1. S jeremias's ear, right ear - H60.331 (Primary) Plan: * Treatment: * Procedure Codes: * Follow Up: 2 Weeks * * Sign off status: Completed true * Provider: Vikas Fabian MD Date: 0 12/12/2024 Generated for Jona dupont/Lanette/Forrestsmitting on: 09/19/2024 02:07 PM EST History and Physical Notes * HPI (History of Present Illness) Category Sub-Category Detail Notes Category Not es Symptom(s) patient is a 44 yo male here for one week follow up visit./ is doing better. hearing is coming back Examination Category Sub-Category Detail Notes Category Not es General Examination GENERAL APPEARANCE: alert, w ell hydrated, in no distress hearing better today EARS: LEFT EAR normal, RIG HT EAR with canal white discharge in canal which is probably the drops.
--- OUTSIDE RECORDS SUMMARY | 2025-01-04 02:00 | XMS_ITS ---
Author Organization Waldo Fabian MD Address [address] [place], [place] [phone] Care Team Providers Care Tilesetter Name Role Phone Waldo Fabian Primary Care Provider [phone] Results Component Value Reference Range Notes Complete Blood Count Auto Di ff Reviewed date:01/05/2025 08:08:02 AM Interpretation: Performing Lab:[facility], [address] [place] [phone] Notes/Report: White Blood Count 9.5 4.8-10.8 X10*3/uL [...] 0.0-0.012 X10*3/uL CORRECTED REPORT CORRECTED REPORT Comprehensive [place]. Panel Fa st Reviewed date:01/04/2025 04:59:38 PM Interpretation: Performing Lab:[facility], [address] [place] [phone] Notes/Report: Sodium 138 135-145 mmol/L Potassium 3.7 [...] Panel Reviewed date:01/04/2025 05:00:21 PM Interpretation: Performing Lab:[facility], [address] [place] [phone] Notes/Report: Triglycerides 219 <150 mg/dL Desirable Triglyceride: [...] (Free>4and<10) Reviewed date:01/04/2025 05:00:02 PM Interpretation: Performing Lab:[facility], [address] [place] [phone] Notes/Report: PSA,Total (Free>4and<10) 0.74 0.00-4.00 ng/mL A [...] A1c Reviewed date:01/04/2025 05:00:11 PM Interpretation: Performing Lab:[facility], [address] [place] [phone] Notes/Report: Hemoglobin A1c % 5.6 <6.0 % [...] average glucose, using the formula of the B7K-Lqextum Average Glucose study (ADAG), Diabetes Care, Vol.31,#8, 2007 REASON FOR VISIT FASTING LABS Encounters Encounter Location Date Provider Diagnosis Waldo Fabian MD [address] [place] [address] Drive [address] [place] [phone] 01/04/2025 Waldo Fabian Blood tests for rout [...] 01/04/2025 Next Appt Details Provider Name:Waldo galloway, 07/27/2025 09:00:00 AM, [address] [place] [address], [address], [phone], Provider Name:Waldo galloway, 01/07/2026 07:30:00 AM, [address] [place] [address], [address], [phone], Provider Name:Waldo galloway, 01/14/2026 09:30:00 AM, [address] [place] [address], [address], [phone], Progress Notes * GALLITO CANDELARIOOB:1980 ([age] yo M)Acc No.[id number]:01/04/2025 Progress Note Patient: DOMINICK FOOTE Provider: Vikas Fabian MD :1980 A ge:44 Y S ex:Male Date:01/04/2025 Address:[address] [id number] Subjective: * Chief Complaints: * 1 . [...] - 01/04/2025 07:00 AM) L AB: Comprehensive [place]. Panel Fast (Collection Date & Time - [...] - 01/04/2025 07:00 AM) L AB: Comprehensive [place]. Panel Fast (Collection Date & Time - [...] - 01/04/2025 07:00 AM) L AB: Comprehensive [place]. Panel Fast (Collection Date & Time - [...] 01/04/2025 Generated for Jona dupont/Lanette/Estheritting on: 1 09/19/2024 02:06 PM EST
--- OUTSIDE RECORDS SUMMARY | 2025-01-04 02:30 | XMS_ITS ---
Author Organization Gareth Fabian MD Address [address] [place] [phone] Care Team Providers Care Script Manager Name Role Phone Ericadrian Gareth Primary Care Provider [phone] Allergies No Known Allergies REASON FOR VISIT 2 week Medications Medication SIG (Take, Route, Frequency, Duration) Notes Start Date End Date Status Atorvastatin Calcium 20 MG TAKE 1 TABLET BY MOUTH EVERY DAY Active Indomethacin 50 MG TAKE 1 CAPSULE BY [facility] TWICE DAILY WITH FOOD OR MILK for [...] W/U Status Risk Notes Problem Hearing loss (92541818) Hearing loss (H91.90) Active confirmed Problem 24994031 Hypercholesterem ia (E78.00) Active confirmed Problem 5272992369831 Testosterone deficiency in male (E29.1) Active confirmed Vital Signs Blood pressure systolic 122 mm Hg 01/05/20 25 Blood pressure diastolic 60 mm Hg 025 Height 67 in 01/04/2025 Weight 258 lbs 01/04/2025 BMI 40.4 kg/m2 01/04/2025 Encounters Encounter Location Date Provider Diagnosis Gareth Fabian MD [address] [place] [address] Drive [address] [place] [phone] 01/04/2025 Gareth Fabian Surfer's ear, bilate ral [...] ear Next Appt Details Provider Name:Gareth galloway, 07/27/2025 09:00:00 AM, [address] [place] [address], Suite [facility], [place], [place], [phone], Provider Name:Gareth galloway, 01/07/2026 07:30:00 AM, [address] [place] [address], [address] [place] [address], [phone], Provider Name:Gareth galloway, 01/14/2026 09:30:00 AM, [address], [address], [place], [phone], Progress Notes * GALLITO CANDELARIOOB:1980 ([age] yo M)Acc No.[id number]:01/04/2025 Progress Notes Patient: DOMINICK FOOTE Provider: Vikas Fabian MD :1980 A ge:44 Y S ex:Male Date:01/04/2025 Address:[address] [place], [place] [address] [id number] Subjective: * Chief Complaints: * 2 week * HPI: S ymptom(s): patient is a 44 yo mle here for 2 week follow up visit/ hearing normally. ear drops helped. * ROS: G eneral/Constitutional: Denies Latricia hills. D enies F atigue. D enies F ever. D enies H eadache. E NT: Denies S ore throat. R espiratory: Ellyn Rome ough. D enies [...] Examination: G eneral Examination: GENERAL APPEARANCE: p leasant, in no acute distress. EARS: b oth [...] 0 01/04/2025 Generated for Jona dupont/Lanette/Estheritting on: 09/19/2024 02:06 PM EST History and Physical Notes * [...]
--- OUTSIDE RECORDS SUMMARY | 2025-01-11 03:30 | XMS_ITS ---
Author Organization Gareth Fabian MD Address [address] [place] [phone] Care Team Providers Care Internet Security Specialist Name Role Phone Gareth Fabian Primary Care [...] kg/m2 01/11/2025 weight is down 2 pounds [facility] e 01-04-25 Encounters Encounter Location Date Provider Diagnosis Gareth Fabian MD [address] [place] [address] [place] [phone] 01/11/2025 Gareth Fabian Annual physical exam Z00.00 [...] iscussed with patient Nevus needs referral to renetta . will arrange Dysthymia stable, will continu e current regiment Hypercholesteremia stable, will contnue current regiment Colon cancer screening guaiac negative Depression screening negative screen Referrals Referral Date Details 01/11/2025 01/11/2025, abnormal with a rash conssistant with fungal infection on buttocks and an irregular mole on back that is suspicious, [facility] Next Appt Details Follow Up: 3 Months, Reason: Provider Name:Gareth galloway, 07/27/2025 09:00:00 AM, [address] [place] [address], [address] [place] [address], [phone], Provider Name:Gareth galloway, 01/07/2026 07:30:00 AM, [address] [place] [address], [address] [place] [address], [phone], Provider Name:Gareth galloway, 01/14/2026 09:30:00 AM, [address] [place] [address], Suite [facility], [place], [place], [phone], Progress Notes * CANDELARIOMICHAELMARTHAOB:1980 ([age] yo M)Acc No.[id number]:01/11/2025 Progress Notes Patient: DOMINICK FOOTE Provider: Vikas Fabian MD :1980 A ge:44 Y S ex:Male Date:01/11/2025 Address:[address], [id number] Subjective: * Chief Complaints: * A NNUAL [...] have a cognition impairment? N o. S SIDDHATRH Questions: SDOH Questions I n the past [...] no. Community involvements: yes, belongs to the [employer]. Exercise: yes, daily walking the dog 5 [...] Auto 0.000 0.0-0.012 - X10*3/uL L ab:Comprehensive [place]. Panel Fast (Order Date - 01/04/2025) (Collection [...] to derm. will arrange ? Referral To:[facility] Dermatology Reason:abnormal with a rash conssistant with [...] 0 01/11/2025 Generated for Jona dupont/Lanette/Estheritting on: 09/19/2024 02:07 PM EST History and [...]
--- OUTSIDE RECORDS SUMMARY | 2025-01-15 04:13 | XMS_ITS ---
Author Organization Gareth Fabian MD Address [address] [place] [phone] Care Team Providers Care Systems Librarian Name Role Phone FidelenocGareth Primary Care Provider REASON FOR VISIT Derm appt Encounters Encounter Location Date Provider Diagnosis Gareth Fabian MD [address] [facility] [address] [place] [phone] 01/15/2025 Gareth Fabian Plan Of Treatment Next Appt Details Provider Name:Gareth galloway, 07/27/2025 09:00:00 AM, [address] [place] [address], [place] [address], [place], [place], [phone], Provider Name:Gareth galloway, 01/07/2026 07:30:00 AM, [address] [place] [address], [place] [address], [place], [place], [phone], Provider Name:Gareth galloway, 01/14/2026 09:30:00 AM, [address], [address], [place], [phone], Progress Notes * GALLITO CANDELARIOOB:1980 ([age] yo M)Acc No.[id number]:01/15/2025 Patient: DOMINICK FOOTE :1980 A ge:44 Y S ex:Male Address:[address] [place] [address] [place], [phone] * true * Date: Generated for Jona dupont/Lanette/eTransmitting on: 09/19/2024 02:08 PM EST
--- OUTSIDE RECORDS SUMMARY | 2025-03-05 10:00 | XMS_ITS ---
Author Organization Gareth Fabian MD Address [address] [place] [phone] Care Team Providers Care Psych Social Worker Name Role Phone Rui Gareth Primary Care Provider Allergies No Known Allergies REASON FOR VISIT ? Hernia umbilical Medications Medication SIG (Take, Route, Frequency, Duration) [...] a day for 7 days 12/05/2024 Not-Taking Citalopram Hydrobromide 20 MG TAKE 1 TABLET BY MOUTH EVERY DAY for 30 Active Indomethacin 50 MG TAKE 1 CAPSULE BY [facility] TWICE DAILY WITH FOOD OR MILK for 30 Active Atorvastatin Calcium 20 MG TAKE 1 TABLET BY MOUTH EVERY DAY Active Vital Signs Blood pressure systolic 122 mm Hg 03/05/20 25 Blood pressure diastolic 78 mm Hg 025 Height 67 in 03/05/2025 Weight 252 lbs 03/05/2025 BMI 39.46 kg/m2 03/05/2025 weight is down 4 pounds [facility] e 01-11-25 Encounters Encounter Location Date Provider Diagnosis Gareth Fabian MD [address] [place] [address] [place] [phone] 03/05/2025 Gareth Fabian Diastasis recti M62.08 Assessments Encounter Date Diagnosis (ICD Code) Assessment Notes Treatment Notes Treatment Clinical Notes Section Notes 03/05/2025 Diastasis recti (ICD-10 - M62.08) reassurance. no treatment necessary. Plan Of Treatment Treatment Notes Assessment Notes Diastasis recti reassurance. no royce tment necessary. Next Appt Details Provider Name:Gareth galloway, 07/27/2025 09:00:00 AM, [address] [place] [address], [place] [address], [place], [place], [phone], Provider Name:Gareth galloway, 01/07/2026 07:30:00 AM, [address] [place] [address], Suite [facility], [place], [place], [phone], Provider Name:Gareth galloway, 01/14/2026 09:30:00 AM, [address] [place] [address], [address] [place] [address], [phone], Progress Notes * GALLITO CANDELARIOOB:1980 ([age] yo M)Acc No.[id number]:03/05/2025 Progress Notes Patient: DOMINICK FOOTE Provider: Vikas Fabian MD :1980 A ge:45 Y S ex:Male Date:03/05/2025 Address:[address] [id number] Subjective: * Chief Complaints: * ? Hernia umbilical * HPI: S ymptom(s): patient is a 45 yo male here for evaluation of ? hernia. * ROS: G eneral/Constitutional: Denies Latricia arteaga. D enies F atigue. D enies F [...] before morning meal Orally Once a day Indomethacin 50 MG Capsule TAKE 1 CAPSULE BY MOUTH TWICE DAILY WITH FOOD OR MILK Atorvastatin Calcium 20 MG Tablet TAKE 1 TABLET BY MOUTH EVERY DAY Citalopram Hydrobromide 20 MG Tablet TAKE 1 TABLET BY MOUTH EVERY DAY Taking Omeprazole 20 MG Capsule Delayed Release 1 capsule 1/2 to 1 hour before morning meal Orally Once a day Taking Indomethacin 50 MG Capsule TAKE 1 CAPSULE BY MOUTH TWICE DAILY WITH FOOD OR MILK Taking Atorvastatin Calcium 20 MG Tablet TAKE 1 TABLET BY MOUTH EVERY DAY Taking Citalopram Hydrobromide 20 MG Tablet TAKE 1 TABLET BY [...] Objective: * Vitals: H t: 67, Wt: 252, BMI:39.46, BP:122/78, Wt-k.31. weight is down 4 pounds since 01-11-25. * Examination: G eneral Examination: GENERAL APPEARANCE: a lert, well hydrated, in no distress.? ABDOMEN: a bnormal with a protuberance of abdommen. ? Assessment: * Assessment: 1. D iastasis recti - M62.08 (Primary) Plan: * Treatment: * Procedure Codes: * * Sign off status: Completed true * Provider: Vikas Fabian MD Date: 0 03/05/2025 Generated for Jona dupont/Lanette/Estheritting on: 09/19/2024 02:07 PM EST History and Physical Notes * HPI (History of Present Illness) Category Sub-Category Detail Notes Category Not es Symptom(s) patient is a 45 yo male here for evaluation of ? hernia Examination Category Sub-Category Detail Notes Category Not es General Examination GENERAL APPEARANCE: alert, w ell hydrated, in no distress ABDOMEN: abnormal with a prot uberance of abdommen
--- OUTSIDE RECORDS SUMMARY | 2025-03-13 02:45 | XMS_ITS ---
Author Organization Waldo Fabian MD Address [address] [place], [place] [phone] Care Team Providers Care 911 Dispatcher Name Role Phone Waldo Fabian Primary Care Provider Results Component Value Reference Range Notes Complete Blood Count Auto Di ff Reviewed date:03/13/2025 12:27:15 PM Interpretation: Performing Lab:[facility], [address] [place] [phone] Notes/Report: White Blood Count 7.8 4.8-10.8 X10*3/uL Red Blood Count 5.24 4.60-5.80 X10*6/uL Hemoglobin 16.7 14.0-18.0 g/dl Hematocrit 47.1 42.0-52.0 % Mean Corpuscular Volume 89.9 80.0-98.0 fL Mean Corpuscular Hemoglobin 31.9 27.0-33.0 pg Mean Corpuscular HGB Conc 35.5 31.0-36.0 g/dl Red Cell Distribution Width 12.5 11.0-16.0 % Platelet Count 127 160-400 X10*3/uL Mean Platelet Volume 13.7 9.4-12.4 fL Neutrophils Percent Auto 54.8 45-73 % Imm Gran Pct Auto 0.3 0.0-0.4 % Lymphocytes Percent Auto 36.3 20-40 % Monocytes Percent Auto 5.5 2-11 % Eosinophils Percent Auto 2.2 0-4 % Basophils Percent Auto 0.9 0-2 % NRBC Pct Auto 0.0 0.0-0.2 /100WBC Neutrophils Absolute Auto 4.3 2.0-8.3 x10*3/u L Imm Gran Abs Auto 0.02 0.00-0.03 X10*3/uL Lymphocytes Absolute Auto 2.8 1.2-4.9 X10*3/u L Monocytes Absolute Auto 0.4 0.1-1.2 X10*3/uL Eosinophils Absolute Auto 0.2 0.0-0.4 X10*3/u L Basophils Absolute Auto 0.1 0.0-0.2 X10*3/uL NRBC Abs Auto 0.000 0.0-0.012 X10*3/uL REASON FOR VISIT 2 mo repeat CBC Encounters Encounter Location Date Provider Diagnosis Waldo Fabian MD [address] [place] [phone] 03/13/2025 Waldo Fabian Thrombocytopenia D69 .6 Assessments Encounter Date Diagnosis (ICD Code) Assessment Notes Treatment Notes Treatment Clinical Notes Section Notes 03/13/2025 Thrombocytopenia (ICD-10 - D69.6) Plan Of Treatment Next Appt Details Provider Name:Waldo galloway, 07/27/2025 09:00:00 AM, [address] [place] [address], [address], [phone], Provider Name:Waldo galloway, 01/07/2026 07:30:00 AM, [address] [place] [address], [address], [phone], Provider Name:Waldo galloway, 01/14/2026 09:30:00 AM, [address] [place] [address], [phone], Progress Notes * MICHAEL CANDELARIOHDOB:1980 ([age] yo M)Acc No.[id number]:03/13/2025 Progress Note Patient: DOMINICK FOOTE Provider: Vikas Fabian MD :1980 A ge:45 Y S ex:Male Date:03/13/2025 Address:[address] [place], [place] [phone] Subjective: * Chief Complaints: * 1 . 2 mo repeat CBC. * Medical History: Objective: * Vitals: Assessment: * Assessment: 1. T hrombocytopenia - D69.6 (Primary) Plan: * Treatment: * Procedure Codes: 3 6415 VENIPUNCT, ROUTINE* * * The named appointment provid er may or may not be the originator of this progress note, and it is not deemed complete until electronically signed by the appointment provider. Sign off status: Pending * Provider: Vikas Fabian MD Date: 0 03/13/2025 Generated for Jona dupont/Lanette/Forrestsmitting on: 09/19/2024 02:07 PM EST
--- OUTSIDE RECORDS SUMMARY | 2025-04-13 04:00 | XMS_ITS ---
Author Organization Waldo Fabian MD Address [address] [place] [phone] Care Team Providers Care Tower Excavator Operator Name Role Phone Ezio Fabiann Primary Care Provider [phone] Allergies No Known Allergies Results Component Value [...] Indomethacin 50 MG TAKE 1 CAPSULE BY [facility] TWICE DAILY WITH FOOD OR MILK for [...] Location Date Provider Diagnosis Waldo Fabian MD [address] [place] [phone] 04/13/2025 Waldo Fabian Prediabetes R73.03 a nd [...] monitor Next Appt Details Provider Name:Waldo galloway, 07/27/2025 09:00:00 AM, [address] [place] [address], [address], [phone], Provider Name:Waldo galloway, 01/07/2026 07:30:00 AM, [address] [place] [address], [address], [phone], Provider Name:Waldo galloway, 01/14/2026 09:30:00 AM, [address] [place] [address], [phone], Progress Notes * GALLITO CANDELARIOOB:1980 ([age] yo M)Acc No.[id number]:04/13/2025 Progress Notes Patient: DOMINICK FOOTE Provider: Vikas Fabian MD :1980 A ge:45 Y S ex:Male Date:04/13/2025 Address:[address] [id number] Subjective: * Chief Complaints: * 3 month [...] 2947 ASSAY, GLUCOSE, BLOOD QUANT, Modifiers: QW 55496 GLYCATED HEMOGLOBIN TEST, Modifiers: QW * * Sign off status: Completed true * Provider: Vikas Fabian MD Date: 0 04/13/2025 Generated for Jona dupont/Lanette/eTransmitting on: 1 09/19/2024 02:06 PM EST History and Physical [...]
--- OUTSIDE RECORDS SUMMARY | 2025-07-20 02:30 | XMS_ITS ---
Author Organization Waldo Fabian MD Address [address] [place], [place] [phone] Care Team Providers Care Van Helper Name Role Phone Waldo Fabian Primary Care Provider [phone] Results Component Value Reference Range Notes Liver Panel (Not yet reviewe d by provider) Interpretation: Performing Lab:[facility], [address] [place] [phone] Notes/Report: Bilirubin Total 0.8 0.0-1.0 mg/dL Bilirubin Direct 0.3 0.0-0.5 mg/dL Aspartate Amino Transferase 49 5-37 U/L Alanine Aminotransferase 33 0-40 U/L Total Protein 7.5 6.5-8.0 g/dL Albumin Level 4.6 3.5-5.0 g/dL Alkaline Phosphatase 87 39-117 U/L Lipid Panel with Reflex (Not yet reviewed by provider) Interpretation: Performing Lab:[facility], [address] [place] [phone] Notes/Report: Triglycerides 181 <150 mg/dL Desirable Triglyceride: [...] lipids Encounters Encounter Location Date Provider Diagnosis Waldo Fabian MD [address] [place] [phone] 07/20/2025 aWldo Fabian Pure hypercholestero lemia E78.00 Assessments Encounter Date Diagnosis (ICD Code) Assessment Notes Treatment Notes Treatment Clinical Notes Section Notes 07/20/2025 Pure hypercholesterolemia (ICD-10 - E78.00) Plan Of Treatment Pending Test Test Name Order Date Liver Panel 07/20/2025 Lipid Panel with Reflex 07/20/2025 Next Appt Details Provider Name:Waldo galloway, 07/27/2025 09:00:00 AM, [address] [place] [address], [phone], Provider Name:Waldo galloway, 01/07/2026 07:30:00 AM, [address] [place] [address], [address], [phone], Provider Name:Waldo galloway, 01/14/2026 09:30:00 AM, [address] [place] [address], [phone], Progress Notes * GALLITO CANDELARIOOB:1980 ([age] yo M)Acc No.[id number]:07/20/2025 Progress Note Patient: DOMINICK FOOTE Provider: Vikas Fabian MD :1980 A ge:45 Y S ex:Male Date:07/20/2025 Address:[facility] [place] [id number] Subjective: * Chief Complaints: * 1 . [...] Date: 09/19/2024 Generated for Jona dupont/Lanette/Estheritting on: 09/19/2024 02:06 PM EST
[2025-07-20 12:40] LABS: Alanine Aminotransferase 33 U/L (0-40); Albumin Level 4.6 g/dL (3.5-5.0); Alkaline Phosphatase 87 U/L (39-117); Aspartate Amino Transferase 49 U/L (5-37); Cholesterol 143 mg/dL (<200); HDL Cholesterol 30 mg/dL (>40); Total Protein 7.5 g/dL (6.5-8.0); Triglycerides 181 mg/dL (<150)
[2025-07-20 12:53] LABS: Reflex LDLD? No
--- OUTSIDE RECORDS SUMMARY | 2025-07-20 14:08 | XMS_ITS | Clinical Summary ---
Author Organization [facility] Address [address] [place] [phone] Phone Care Team Providers Care Armoured Car Escort Name Role Phone Waldo Fabian MD Primary Care Provider Medications atorvastatin (LIPITOR) 20 MG tablet Take 20 mg by mouth daily. Active Social History Tobacco Use Types Packs/Day Years Used Date Smoking Tobacco: Never Assessed Education Answer Date Recorded Are you interested in more education? Not on corey e 01/08/2023 Are you concerned about learning? Not on file 01/08/2023 No 01/08/2023 No 01/08/2023 Digital Access Answer Date Recorded No 02/06/2023 No 02/06/2023 No 02/06/2023 Reliable internet access at home? Not on file 02/06/2023 Device with a working camera? Not on file Sex and Gender Information Value Date Recorded Sex Assigned at Male 11/17/2019 11:35 AM EST Legal Sex Male 10:29 PM EDT Gender Identity Male 11/17/2019 11:35 AM EST Sexual Orientation Straight 11/17/2019 11 :35 AM EST Plan of Treatment Health Maintenance Due Date Last Done Comments LIPID PANEL 1982 DEPRESSION SCREENING 1994 SMOKING Hx and SMOKELESS TOBACCO SCREENING 1995 HEPATITIS C SCREENING 02/24/2000 HIV ONE-TIME SCREENING (18-6 5 YEARS) 02/24/2000 Adult Td,Tdap Booster 10/30/2022 10/30/2012 INFLUENZA VACCINE (#1) 2025 06/20/2019 COVID-19 VACCINE (3 - 2024-2 6 season) 2025 10/10/2020, 09/19/2020 HEPATITIS A VACCINES Aged Out No long er eligible based on patient's age to complete this topic HIB VACCINES Aged Out No longer eligi ble based on patient's age to complete this topic MENINGOCOCCAL VACCINES (ACWY) Aged Out No longer eligible based on patient's age to complete this topic MENINGOCOCCAL VACCINES (B) Aged Out N o longer eligible based on patient's age to complete this topic PNEUMOCOCCAL VACCINES (0-49 years) Aged Out No longer eligible b ased on patient's age to complete this topic Medical Devices [place] [address] BLUE [employer]OSS OUT OF STATE PPO BL[employer]OSS OUT OF STATE PPO BL[employer] [place]OSS OUT OF STATE PPO BLUE [employer]OSS OUT OF STATE PPO BLUE CROSS OUT OF STATE PPO BLUE CROSS OUT OF STATE PPO BLUE CROSS OUT OF STATE PPO Care Teams Armoured Car Escort Relationship Specialty Start Date End Date Waldo Fabian MD [address] [place] [address] [place] [address] PCP - General Internal Medicine 11/17/19 Additional Source Comments The information contained in this document represents components of the legal health record. It is not the complete legal health record.[facility]
--- OUTSIDE RECORDS SUMMARY | 2025-07-20 14:08 | XMS_ITS | Patient Health Record ---
Author Organization Gareth Fabian MD Address [address] [place], [place] [id number] Care Team Providers Care Can Labeler Name Role Phone Gareth Fabian Primary Care Provider Allergies No Known Allergies Results Component Value Reference Range Notes Hemoglobin A1c Reviewed date:04/13/2025 09:10:29 AM Interpretation: Performing Lab: Notes/Report: Hemoglobin A1c 5.5 Complete Blood Count Auto Di ff Reviewed date:01/05/2025 08:08:02 AM Interpretation: Performing Lab:[facility], [address] [place] [phone] Notes/Report: White Blood Count 9.5 4.8-10.8 X10*3/uL [...] 0.0-0.012 X10*3/uL CORRECTED REPORT CORRECTED REPORT Comprehensive [place]. Panel Fa st Reviewed date:01/04/2025 04:59:38 PM Interpretation: Performing Lab:[facility], [address] [place] [phone] Notes/Report: Sodium 138 135-145 mmol/L Potassium 3.7 [...] Panel Reviewed date:01/04/2025 05:00:21 PM Interpretation: Performing Lab:[address] [phone] Notes/Report: Triglycerides 219 <150 mg/dL Desirable Triglyceride: [...] (Free>4and<10) Reviewed date:01/04/2025 05:00:02 PM Interpretation: Performing Lab:[address] [phone] Notes/Report: PSA,Total (Free>4and<10) 0.74 0.00-4.00 ng/mL A [...] A1c Reviewed date:01/04/2025 05:00:11 PM Interpretation: Performing Lab:[facility], [address] [place] [phone] Notes/Report: Hemoglobin A1c % 5.6 <6.0 % [...] average glucose, using the formula of the [id number] Average Glucose study (ADAG), Diabetes Care, Vol.31,#8, Apr. 2007 Complete Blood Count Auto Di ff Reviewed date:03/13/2025 12:27:15 PM Interpretation: Performing Lab:[facility], [address] [place] [phone] Notes/Report: White Blood Count 7.8 4.8-10.8 X10*3/uL [...] X10*3/uL NRBC Abs Auto 0.000 0.0-0.012 X10*3/uL Liver Panel (Not yet reviewe d by provider) Interpretation: Performing Lab:[facility], [address] [place] [phone] Notes/Report: Bilirubin Total 0.8 0.0-1.0 mg/dL Bilirubin Direct 0.3 0.0-0.5 mg/dL Aspartate Amino Transferase 49 5-37 U/L Alanine Aminotransferase 33 0-40 U/L Total Protein 7.5 6.5-8.0 g/dL Albumin Level 4.6 3.5-5.0 g/dL Alkaline Phosphatase 87 39-117 U/L Lipid Panel with Reflex (Not yet reviewed by provider) Interpretation: Performing Lab:[facility], [address] [place] [phone] Notes/Report: Triglycerides 181 <150 mg/dL Desirable Triglyceride: [...] low results in patients with liver disease. Glucose, finger stick Reviewed date:04/13/2025 09:03:37 AM Interpretation: Performing Lab: Notes/Report: Value 133 Hemoglobin Reviewed date:08/03/2024 05:18:02 PM Interpretation: Performing Lab:[facility], [address] [place] [phone] Notes/Report: Hemoglobin 16.8 14.0-18.0 g/dl Hematocrit Reviewed date:08/03/2024 05:16:27 PM Interpretation: Performing Lab:[facility], [address] [place] [phone] Notes/Report: Hematocrit 46.6 42.0-52.0 % Testosterone, Free/Total Reviewed date:08/13/2024 02:45:14 PM Interpretation: Performing Lab:[facility], [address] [place] [phone] Notes/Report: Testosterone, Total [phone] ng/dL For additional information, please refer to http://education.[facility]/faq/ TotalTestosteroneLCMSM QNSU443 (This link is being provided for informational/ educational purposes only.) This test was developed and its analytical performance characteristics have been determined by [facility] [place], [place]. It has not been cleared or approved by the U.S. Food and Drug Administration. This assay has been validated pursuant to the CLIA regulations and is used for clinical purposes. Testosterone, Free 184.9 35.0-155.0 pg/mL This test was developed and its analytical performance characteristics have been determined by [facility] [place], [place]. It has not been cleared or approved by the U.S. Food and Drug Administration. This assay has been validated pursuant to the CLIA regulations and is used for clinical purposes. THIS TEST WAS PERFORMED AT: [facility]/[address] [phone] GASPER POSADA MD,PHD SLIDE REVIEW Reviewed date:01/04/2025 04:59:14 PM Interpretation: Performing Lab:[facility], [address] [place] [phone] Notes/Report: SLIDE REVIEW VERIFIED Hold Gold Reviewed date:07/20/2025 12:26:40 PM Interpretation: Performing Lab:[facility], [address] [place] [phone] Notes/Report: Hold Gold See Note Specimen held untested for 24 hours; Call to request Chemistry testing. Reason For Referral Reason abnormal with a rash conssistant with fungal infection on buttocks and an irregular mole on back that is suspicious Diagnosis 1 Nevus (D22.9) Referral Organization Gareth Fabian MD Referring Provider First Name Gareth Referring Provider Last Name Rui Referring Provider Speciality Internal M edicine Referred Provider RUEL DERMATSHARON [place] Referred Provider Specialty Dermatology General Notes DarcyDianneDaisy 0 01/15/2025 11:35:11 AM > referral info faxed Daisy Taveras 01/19/2025 11:21:06 AM > was told to refaxed referral, Daisy Taveras 02/12/2025 10:55:03 AM >was told patient is aware of appt Referral Priority Routine Referral Appointment Date 03/02/2025 Medications Medication SIG (Take, Route, Frequency, Duration) Notes Start Date End Date Status Atorvastatin Calcium 20 MG TAKE 1 TABLET BY MOUTH EVERY DAY for 30 Active Imitrex 100 MG 1 tablet at least 2 hours between doses as needed Orally Twice a day for 10 days 07/17/2022 Not-Taking Ciprofloxacin-dexAMETHaso ne 0.3-0.1 % 4 drops into affected ear Otic Twice a day for 7 days 12/05/2024 Not-Taking Omeprazole 20 MG 1 capsule 1/2 to 1 h our before morning meal Orally Once a day for 30 day(s) Active Citalopram Hydrobromide 20 MG TAKE 1 TABLET BY MOUTH EVERY DAY for 30 Active Indomethacin 50 MG TAKE 1 CAPSULE BY [facility] TWICE DAILY WITH FOOD OR MILK for 30 Active Immunizations Vaccine Route Administration Date Status Comme [...] Status W/U Status Risk Notes Problem Thrombocytopenia (944559617) Thrombocytopenia (D69.6) Active confirmed Problem 5083885 Gynecomastia (N62) Active confirmed Problem 544294135 Non morbid obesi ty due to excess calories (E66.09) Active confirmed Problem 903218980 Elevated triglyc erides with high cholesterol (E78.2) Active confirmed Problem 48456907 Dysthymia (F34.1) Active confirmed Problem 405242049 Moderate episode of recurrent major depressive disorder (F33.1) Active confirmed Problem 166827315 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) Active confirmed Problem Hearing loss (18152393) Hearing loss (H91.90) Active confirmed Problem 259941055 Prediabetes (R73.03) Active confirmed Problem 312981159 Pure hypercholesterolemia (E78.00) Active confirmed Problem 97775106 Hypercholesterem ia (E78.00) Active confirmed Problem 60937671 RUPA (obstructive sleep apnea) (G47.33) Active confirmed Problem 339580227 BMI 45.0-49.9, a dult (Z68.42) Active confirmed Problem 856264526 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) Active confirmed Problem 38394771 Hypogonadotropic hypogonadism (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) Active confirmed Problem 7603708874349 Hypotestosterone michael in male (E29.1) Active confirmed Problem 7211668633508 Testosterone deficiency in male (E29.1) Active confirmed Vital Signs Blood pressure diastolic 78 mm Hg 04/13/2025 Height 67 in 04/13/2025 Blood pressure systolic 102 mm Hg 04/13/2025 Weight 252 lbs 04/13/2025 BMI 39.46 kg/m2 04/13/2025 Encounters Encounter Location Date Provider Diagnosis Gareth Fabian MD [address] [place], [place] [id number] 01/04/2025 Gareth Fabian Blood tests for rout ine general physical examination Z00.00 ; Pure hypercholesterolemia E78.00 ; Prediabetes R73.03 and Hypotestosteronemia in male E29.1 Gareth Fabian MD [address] [place] [id number] 03/13/2025 Gareth Fabian Thrombocytopenia D69 .6 Gareth Fabian MD [address] [place] [id number] 07/20/2025 Gareth Fabian Pure hypercholestero lemia E78.00 Gareth Fabian MD [address] [place] [id number] 12/05/2024 Gareth Fabian Swimmer's ear, right ear H60.331 Gareth Fabian MD [address] [place] [id number] 12/12/2024 Gareth Fabian Swimmer's ear, right ear H60.331 Gareth Fabian MD [address] [place] [id number] 01/04/2025 Gareth Fabian Surfer's ear, bilate ral H61.813 ; Hearing loss H91.90 ; Hypercholesteremia E78.00 ; Prediabetes R73.03 and Testosterone deficiency in male E29.1 Gareth Fabian MD [address] [place] [id number] 01/11/2025 Gareth Fabian Annual physical exam Z00.00 ; Nevus D22.9 ; Dysthymia F34.1 ; Hypercholesteremia E78.00 ; Colon cancer screening Z12.11 and Depression screening Z13.31 Gareth Fabian MD [address] [place] [id number] 03/05/2025 Gareth Fabian Diastasis recti M62. 08 Gareth Fabian MD [address] [place] [id number] 04/13/2025 Gareth Fabian Prediabetes R73.03 a nd Thrombocytopenia D69.6 Gareth Fabian MD [address] [place] [id number] 01/15/2025 Gareth Fabian Assessments Encounter Date Diagnosis (ICD Code) Assessment Notes Treatment Notes Treatment Clinical Notes Section Notes 01/04/[address] ine general physical examination (ICD-10 - Z00.00) 03/13/2025 Thrombocytopenia (IC D-10 - D69.6) 07/20/2025 Pure hypercholesterolemia (ICD-10 - E78.00) 12/05/2024 Swimmer's ear, right ear (ICD-10 - H60.331) 12/12/2024 Swimmer's ear, right ear (ICD-10 - H60.331) will use drops for another week then stop. will recheck in 2 weeks. also put on flonase 01/04/2025 Surfer's ear, bilate ral (ICD-10 - H61.813) no treatment needed 01/04/2025 Hearing loss (ICD-10 - H91.90) has returned to normal with treatment of swimmer's ear 01/11/2025 Annual physical exam (ICD-10 - Z00.00) labs reviewed and discussed with patient 01/11/2025 Nevus (ICD-10 - D22.9) needs referral to derm. will arrange 03/05/2025 Diastasis recti (ICD -10 - M62.08) reassurance. no treatment necessary. 04/13/2025 Prediabetes (ICD-10 - R73.03) doingwell on diet, no need for medicatin at this time 01/04/2025 Pure hypercholesterolemia (ICD-10 - E78.00) 01/04/2025 Hypercholesteremia (ICD-10 - E78.00) 01/11/2025 Dysthymia (ICD-10 - F34.1) stable, will continue current regiment 04/13/2025 Thrombocytopenia (IC D-10 - D69.6) stable with minimal drop, will continue to monitor 01/04/2025 Prediabetes (ICD-10 - R73.03) 01/04/2025 Prediabetes (ICD-10 - R73.03) 01/11/2025 Hypercholesteremia (ICD-10 - E78.00) stable, will contnue current regiment 01/04/2025 Hypotestosteronemia in male (ICD-10 - E29.1) 01/04/2025 Testosterone deficie ncy in male (ICD-10 - E29.1) 01/11/2025 Colon cancer screeni ng (ICD-10 - Z12.11) guaiac negative 01/11/2025 Depression screening (ICD-10 - Z13.31) negative screen Plan Of Treatment Pending Test Test Name Order Date CULTURE, STOOL, ANAMARIA/SHIG/CAMPY AND SHIGA TOXINS EIA W/RFL E.COLI O157 CULT 02/14/2021 Liver Panel 07/20/2025 Lipid Panel with Reflex 07/20/2025 Microalbumin, Random 01/04/2025 UA ClnCatch+Micro w/rflx Cult 01/04/2025 Next Appt Details Provider Name:Gareth Flores ier, 07/27/2025 09:00:00 AM, [address] [place] [address], [place] [address], [place], [place], [phone], Provider Name:Gareth Flores ier, 01/07/2026 07:30:00 AM, [address] [place] [address], [place] [address], [place], [place], [phone], Provider Name:Gareth Flores ier, 01/14/2026 09:30:00 AM, [address] [place] [address], [place] [address], [place], [place], [phone], Insurance Providers Payer Name Payer Address Payer Phone Subscriber Number Group Number Insured Name Patient Relationship to Insured Coverage Start Date Coverage End Date [employer] Plan Administ[employer] [address] MD Jori [id number] DOMINICK CANDELARIO Self - patient is the insured Medical (General) History Surgical History Surgery Date(Month/Year) crushed finger tip 2012 undescending testicl
== END 2025-07-20 11:40 | disposition home or self-care (01) ==
LOC: HO.LNP 11:39
PROVIDERS: Visit Provider Internal Medicine
DX: E78.00 Pure hypercholesterolemia, unspecified (principal)
CPT/HCPCS: 80061; 80076

== ENCOUNTER 2025-08-16 10:07 | Outpatient (AMB) | payer OTHER, SELFPAY ==
--- OUTSIDE RECORDS SUMMARY | 2024-12-12 08:15 | XMS_ITS ---
Author Organization Gareth Fabian MD Address [address] [place] [phone] Care Team Providers Care Associate Professor Of Violin Name Role Phone Ericadrian Gareth Primary Care Provider [phone] Allergies No Known Allergies REASON FOR VISIT [...] Indomethacin 50 MG TAKE 1 CAPSULE BY [facility] TWICE DAILY WITH FOOD OR MILK for 30 Active Atorvastatin Calcium 20 MG TAKE 1 TABLET BY MOUTH EVERY DAY Active Vital Signs Blood pressure systolic 104 mm Hg 12/13/19 25 Blood pressure diastolic 60 mm Hg 025 Height 67 in 12/12/2024 Weight 257 lbs 12/12/2024 BMI 40.25 kg/m2 12/12/2024 weight is down 3 pounds [facility] e 12-05-24 Encounters Encounter Location Date Provider Diagnosis Gareth Fabian MD [address] [place] [address] [place] [phone] 12/12/2024 Gareth Fabian Swimmer's ear, right ear [...] Up: 2 Weeks, Reason: Provider Name:Gareth galloway, 01/07/2026 07:30:00 AM, [address] [place] [address], Suite [facility], [place], [place], [phone], Provider Name:Gareth galloway, 01/14/2026 09:30:00 AM, [address] [place] [address], [address], [place], [place], [phone], Progress Notes * GALLITO CANDELARIOOB:1980 ([age] yo M)Acc No.[id number]:12/12/2024 Progress Notes Patient: DOMINICK FOOTE Provider: Vikas Fabian MD :1980 A ge:44 Y S ex:Male Date:12/12/2024 Address:[address] [id number] Subjective: * Chief Complaints: * 1 WK F/U * HPI: S ymptom(s): patient is a 44 yo male here for one week follow up visit./ is doing better. hearing is coming back. * ROS: G eneral/Constitutional: Denies C hills. D enies F atigue. D enies F ever. D enies H eadache. R espiratory: Ellyn Rome ough. D enies S hortness of breath at rest. D enies S hortness of breath with exertion. G astrointestinal: Denshea N ausea. * Medical History: * Surgical [...] 0 12/12/2024 Generated for Jona dupont/Lanette/Forrestsmitting on: 1 10/17/2024 12:07 PM EST History and Physical Notes * [...]
--- OUTSIDE RECORDS SUMMARY | 2025-01-04 02:00 | XMS_ITS ---
Author Organization Waldo Fabian MD Address [address] [place], [place] [id number] Care Team Providers Care Full Service Supervisor Name Role Phone Waldo Fabian Primary Care Provider Results Component Value Reference Range Notes Complete Blood Count Auto Di ff Reviewed date:01/05/2025 08:08:02 AM Interpretation: Performing Lab:[facility], [address] [place] [phone] Notes/Report: White Blood Count 9.5 4.8-10.8 X10*3/uL Red Blood Count 5.25 4.60-5.80 X10*6/uL Hemoglobin 16.5 14.0-18.0 g/dl Hematocrit 47.5 42.0-52.0 % Mean Corpuscular Volume 90.5 80.0-98.0 fL Mean Corpuscular Hemoglobin 31.4 27.0-33.0 pg Mean Corpuscular HGB Conc 34.7 31.0-36.0 g/dl Red Cell Distribution Width 12.7 11.0-16.0 % Platelet Count 121 160-400 X10*3/uL Mean Platelet Volume 13.8 9.4-12.4 fL Neutrophils Percent Auto 55.3 45-73 % Imm Gran Pct Auto 0.3 0.0-0.4 % Lymphocytes Percent Auto 35.3 20-40 % Monocytes Percent Auto 5.9 2-11 % Eosinophils Percent Auto 2.4 0-4 % Basophils Percent Auto 0.8 0-2 % NRBC Pct Auto 0.0 0.0-0.2 /100WBC Neutrophils Absolute Auto 5.3 2.0-8.3 x10*3/u L Imm Gran Abs Auto 0.03 0.00-0.03 X10*3/uL Lymphocytes Absolute Auto 3.4 1.2-4.9 X10*3/u L Monocytes Absolute Auto 0.6 0.1-1.2 X10*3/uL Eosinophils Absolute Auto 0.2 0.0-0.4 X10*3/u L Basophils Absolute Auto 0.1 0.0-0.2 X10*3/uL NRBC Abs Auto 0.000 0.0-0.012 X10*3/uL White Blood Count 9.5 4.8-10.8 X10*3/uL Red Blood Count 5.25 4.60-5.80 X10*6/uL Hemoglobin 16.5 14.0-18.0 g/dl Hematocrit 47.5 42.0-52.0 % Mean Corpuscular Volume 90.5 80.0-98.0 fL Mean Corpuscular Hemoglobin 31.4 27.0-33.0 pg Mean Corpuscular HGB Conc 34.7 31.0-36.0 g/dl Red Cell Distribution Width 12.7 11.0-16.0 % Platelet Count 121 160-400 X10*3/uL Mean Platelet Volume 13.8 9.4-12.4 fL Neutrophils Percent Auto 55.3 45-73 % Imm Gran Pct Auto 0.3 0.0-0.4 % Lymphocytes Percent Auto 35.3 20-40 % Monocytes Percent Auto 5.9 2-11 % Eosinophils Percent Auto 2.4 0-4 % Basophils Percent Auto 0.8 0-2 % NRBC Pct Auto 0.0 0.0-0.2 /100WBC Neutrophils Absolute Auto 5.3 2.0-8.3 x10*3/u L Imm Gran Abs Auto 0.03 0.00-0.03 X10*3/uL Lymphocytes Absolute Auto 3.4 1.2-4.9 X10*3/u L Monocytes Absolute Auto 0.6 0.1-1.2 X10*3/uL Eosinophils Absolute Auto 0.2 0.0-0.4 X10*3/u L Basophils Absolute Auto 0.1 0.0-0.2 X10*3/uL NRBC Abs Auto 0.000 0.0-0.012 X10*3/uL CORRECTED REPORT CORRECTED REPORT Comprehensive [place]. Panel Fa st Reviewed date:01/04/2025 04:59:38 PM Interpretation: Performing Lab:[facility], [address] [place] [phone] Notes/Report: Sodium 138 135-145 mmol/L Potassium 3.7 3.3-5.1 mmol/L Chloride 104 96-108 mmol/L Carbon Dioxide 29 22-29 mmol/L Anion Gap 9 12-20 Blood Urea Nitrogen 15 9-16 mg/dL Creatinine 0.83 0.5-1.4 mg/dL Estimated Glomerular Filt Rate > 60 Chronic Kidney Disease: Estimated GFR < 60 mL/min/1.73m2 Severe Kidney Disease: Estimated GFR < 15 mL/min/1.73m2 Glucose Fasting 98 60-99 mg/dL Calcium 8.9 8.4-10.2 mg/dL Bilirubin Total 0.8 0.0-1.0 mg/dL Aspartate Amino Transferase 32 5-37 U/L Alanine Aminotransferase 25 0-40 U/L Total Protein 7.1 6.5-8.0 g/dL Albumin Level 3.9 3.5-5.0 g/dL Alkaline Phosphatase 77 39-117 U/L Lipid Panel Reviewed date:01/04/2025 05:00:21 PM Interpretation: Performing Lab:[facility], [address] [place] [phone] Notes/Report: Triglycerides 219 <150 mg/dL Desirable Triglyceride: less than 150 mg/dL Borderline High Triglyceride 150-199 mg/dL High Triglyceride: 200-499 mg/dL Very High Triglyceride: greater than or equal to 5OO mg/dL Cholesterol 139 <200 mg/dL Desirable Cholesterol: less than 200 [...] low results in patients with liver disease. PSA,Total (Free>4and<10) Reviewed date:01/04/2025 05:00:02 PM Interpretation: Performing Lab:[facility], [address] [place] [phone] Notes/Report: PSA,Total (Free>4and<10) 0.74 0.00-4.00 ng/mL A Free PSA was not [...] [place] Alinity i Chemiluminescent Microparticle Immunoassay (CMIA) Hemoglobin A1c Reviewed date:01/04/2025 05:00:11 PM Interpretation: Performing Lab:[facility], [address] [place] [phone] Notes/Report: Hemoglobin A1c % 5.6 <6.0 % Hemoglobin A1C Reference Range Adults: 4.8 - 6.0 % Non diabetic: < 6.0 % Goal: < 7.0 % Additional Action Suggested: > 8.0 % Note: Hemoglobin A1c results are invalid for patients with abnormal amounts of HbF. Blood transfusions may impact the HbA1c concentration in the patient sample. Estimated Average Glucose 114 eAG = Estimated average glucose which is %A1C expressed as average glucose, using the formula of the M3K-Mdiwlxt Average Glucose study (ADAG), Diabetes Care, Vol.31,#8, 2007 REASON FOR VISIT FASTING LABS Encounters Encounter Location Date Provider Diagnosis Waldo Fabian MD [address] [place] [address] Drive [address] [place] [phone] 01/04/2025 Waldo Fabian Blood tests for rout ine general physical examination Z00.00 ; Pure hypercholesterolemia E78.00 ; Prediabetes R73.03 and Hypotestosteronemia in male E29.1 Assessments Encounter Date Diagnosis (ICD Code) Assessment Notes Treatment Notes Treatment Clinical Notes Section Notes 01/04/2025 Blood tests for rout ine general physical examination (ICD-10 - Z00.00) 01/04/2025 Pure hypercholesterolemia (ICD-10 - E78.00) 01/04/2025 Prediabetes (ICD-10 - R73.03) 01/04/2025 Hypotestosteronemia in male (ICD-10 - E29.1) Plan Of Treatment Pending Test Test Name Order Date Microalbumin, Random 01/04/2025 UA ClnCatch+Micro w/rflx Cult 01/04/2025 Next Appt Details Provider Name:Waldo galloway, 01/07/2026 07:30:00 AM, [address] [place] [address], [address], [phone], Provider Name:Waldo galloway, 01/14/2026 09:30:00 AM, [address] [place] [address], [place] [address], [place], [place], [phone], Progress Notes * GALLITO CANDELARIOOB:1980 ([age] yo M)Acc No.[id number]:01/04/2025 Progress Note Patient: DOMINICK FOOTE Provider: Vikas Fabian MD :1980 A ge:44 Y S ex:Male Date:01/04/2025 Address:[address] [id number] Subjective: * Chief Complaints: * 1 . FASTING LABS. * Medical History: Objective: * Vitals: Assessment: * Assessment: 1. B lood tests for routine general physical examination - Z00.00 (Primary) 2 .?Pure hypercholesterolemia - E78.00 3 . P rediabetes - R73.03 ?4. H ypotestosteronemia in male - E29.1 Plan: * Treatment: 2. P ure hypercholesterolemia L AB: Microalbumin, Random L AB: UA ClnCatch+Micro w/rflx Cult L AB: Complete Blood Count Auto Diff (Collection Date & Time - 01/04/2025 07:00 AM) L AB: Comprehensive [place]. Panel Fast (Collection Date & Time - 01/04/2025 07:00 AM) L AB: Lipid Panel (Collection Date & Time - 01/04/2025 07:00 AM) L AB: PSA,Total (Free>4and<10) (Collection Date & Time - 01/04/2025 07:00 AM) L AB: Hemoglobin A1c (Collection Date & Time - 01/04/2025 07:00 AM) 3. P rediabetes L AB: Microalbumin, Random L AB: UA ClnCatch+Micro w/rflx Cult L AB: Complete Blood Count Auto Diff (Collection Date & Time - 01/04/2025 07:00 AM) L AB: Comprehensive [place]. Panel Fast (Collection Date & Time - 01/04/2025 07:00 AM) L AB: Lipid Panel (Collection Date & Time - 01/04/2025 07:00 AM) L AB: PSA,Total (Free>4and<10) (Collection Date & Time - 01/04/2025 07:00 AM) L AB: Hemoglobin A1c (Collection Date & Time - 01/04/2025 07:00 AM) 4. H ypotestosteronemia in male L AB: Microalbumin, Random L AB: UA ClnCatch+Micro w/rflx Cult L AB: Complete Blood Count Auto Diff (Collection Date & Time - 01/04/2025 07:00 AM) L AB: Comprehensive [place]. Panel Fast (Collection Date & Time - 01/04/2025 07:00 AM) L AB: Lipid Panel (Collection Date & Time - 01/04/2025 07:00 AM) L AB: PSA,Total (Free>4and<10) (Collection Date & Time - 01/04/2025 07:00 AM) L AB: Hemoglobin A1c (Collection Date & Time - 01/04/2025 07:00 AM) * Procedure Codes: 3 6415 VENIPUNCT, ROUTINE* * * The named appointment provid er may or may not be the originator of this progress note, and it is not deemed complete until electronically signed by the appointment provider. Sign off status: Pending * Provider: Vikas Fabian MD Date: 0 01/04/2025 Generated for Jona dupont/Lanette/Estheritting on: 1 10/17/2024 12:07 PM EST
--- OUTSIDE RECORDS SUMMARY | 2025-01-04 02:30 | XMS_ITS ---
Author Organization Gareth Fabian MD Address [address] [place] [phone] Care Team Providers Care Welt Edge Rounder Name Role Phone Rui Gareth Primary Care Provider Allergies No Known Allergies REASON FOR VISIT 2 week Medications Medication SIG (Take, Route, Frequency, Duration) Notes Start Date End Date Status Atorvastatin Calcium 20 MG TAKE 1 TABLET BY MOUTH EVERY DAY Active Indomethacin 50 MG TAKE 1 CAPSULE BY [facility] TWICE DAILY WITH FOOD OR MILK for 30 Active Citalopram Hydrobromide 10 MG TAKE 1 TABLET BY MOUTH EVERY DAY for 90 Active Ciprofloxacin-dexAMETHaso ne 0.3-0.1 % 4 drops into affected ear Otic Twice a day for 7 days 12/05/2024 Not-Taking Imitrex 100 MG 1 tablet at least 2 hours between doses as needed Orally Twice a day for 10 days 07/17/2022 Not-Taking Omeprazole 20 MG 1 capsule 1/2 to 1 h our before morning meal Orally Once a day for 30 day(s) Active Problems Problem Type SNOMED Code ICD Code Onset Dates Problem Status W/U Status Risk Notes Problem Hearing loss (87578176) Hearing loss (H91.90) Active confirmed Problem 48479248 Hypercholesterem ia (E78.00) Active confirmed Problem 6412714618838 Testosterone deficiency in male (E29.1) Active confirmed Vital Signs Blood pressure systolic 122 mm Hg 01/05/20 25 Blood pressure diastolic 60 mm Hg 025 Height 67 in 01/04/2025 Weight 258 lbs 01/04/2025 BMI 40.4 kg/m2 01/04/2025 Encounters Encounter Location Date Provider Diagnosis Gareth Fabian MD [address] [place] [phone] 01/04/2025 Gareth Fabian Surfer's ear, bilate ral H61.813 ; Hearing loss H91.90 ; Hypercholesteremia E78.00 ; Prediabetes R73.03 and Testosterone deficiency in male E29.1 Assessments Encounter Date Diagnosis (ICD Code) Assessment Notes Treatment Notes Treatment Clinical Notes Section Notes 01/04/2025 Surfer's ear, 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) no treatment needed 01/04/2025 Hearing loss (ICD-10 - H91.90) has returned to normal with treatment of swimmer's ear 01/04/2025 Hypercholesteremia (ICD-10 - E78.00) 01/04/2025 Prediabetes (ICD-10 - R73.03) 01/04/2025 Testosterone deficiency in male (ICD-10 - E29.1) Plan Of Treatment Treatment Notes Assessment Notes Surfer's ear, bilateral no treatment nee ded Hearing loss has returned to norm al with treatment of swimmer's ear Next Appt Details Provider Name:Gareth galloway, 01/07/2026 07:30:00 AM, [address] [place] [address] Drive, Suite [facility], [place], [place], [phone], Provider Name:Gareth galloway, 01/14/2026 09:30:00 AM, [address] [place] [address], Suite [facility], [place], [place], [phone], Progress Notes * GALLITO CANDELARIOOB:1980 ([age] yo M)Acc No.[id number]:01/04/2025 Progress Notes Patient: DOMINICK FOOTE Provider: Vikas Fabian MD :1980 A ge:44 Y S ex:Male Date:01/04/2025 Address:[facility] Alber[facility] [place], [id number] Subjective: * Chief Complaints: * 2 week * HPI: S ymptom(s): patient is a 44 yo mle here for 2 week follow up visit/ hearing normally. ear drops helped. * ROS: G eneral/Constitutional: Denies C hills. D enies F atigue. D enies F ever. D enies H eadache. E NT: Denies S ore throat. R espiratory: Denies C ough. D enies S hortness of breath at rest. D enies S hortness of breath with exertion. G astrointestinal: Denies D iarrhea. D enies N ausea. * Medical History: * Surgical [...] TAKE 1 TABLET BY MOUTH EVERY DAY Not-Taking/PRNCiprofloxacin-dexAMETHasone 0.3-0.1 % Suspension 4 drops into affected ear Otic Twice a day Imitrex 100 MG Tablet 1 tablet at least 2 hours between doses as needed Orally Twice a day Not-Taking/PRN Ciprofloxacin-dexAMETHasone 0.3-0.1 % Suspension 4 drops into affected ear Otic Twice a day Not-Taking/PRN Imitrex 100 MG Tablet 1 tablet at least 2 hours between doses as needed Orally Twice a day * Allergies: N .K.D.A.yes[Allergies Verified] Objective: * Vitals: H t: 67, Wt: 258, BMI:40.4, BP:122/60, Wt-k.03. * Examination: G eneral Examination: GENERAL APPEARANCE: p teofilo, in no acute distress. EARS: b oth ears look normal has some canal cysts. ? Assessment: * Assessment: 1. S urfer's ear, bilateral - H61.813 (Primary) 2 . H earing loss - H91.90? 3. H ypercholesteremia - E78.00 4 . P rediabetes - R73.03? 5. T estosterone deficiency in male - E29.1 Plan: * Treatment: 2. H earing loss Notes: has returned to normal with treatment of swimmer's ear * Procedure Codes: 3 6415 VENIPUNCT, ROUTINE* * * Sign off status: Completed true * Provider: Vikas Fabian MD Date: 0 01/04/2025 Generated for Jona dupont/Lanette/eTransmitting on: 1 10/17/2024 12:07 PM EST History and Physical Notes * HPI (History of Present Illness) Category Sub-Category Detail Notes Category Not es Symptom(s) patient is a 44 yo mle here for 2 week follow up visit/ hearing normally. ear drops helped Examination Category Sub-Category Detail Notes Category Not es General Examination GENERAL APPEARANCE: pleasant, in n o acute distress EARS: both ears look regine l has some canal cysts
--- OUTSIDE RECORDS SUMMARY | 2025-01-11 03:30 | XMS_ITS ---
Author Organization Gareth Fabian MD Address [address] [place] [phone] Care Team Providers Care Station Agent Name Role Phone Gareth Fabian Primary Care Provider Allergies No Known Allergies Reason For Referral Reason abnormal with a rash conssistant with fungal infection on buttocks and an irregular mole on back that is suspicious Diagnosis 1 Nevus (D22.9) Referral Organization Gareth Fabian MD Referring Provider First Name Gareth Referring Provider Last Name Rui Referring Provider Speciality Internal M edicine Referred Provider RUEL DERMATOLOG Y Referred Provider Specialty Dermatology General Notes Daisy Taveras 0 01/15/2025 11:35:11 AM > referral info faxed, Daisy Taveras 01/19/2025 11:21:06 AM > was told to refaxed referralDarcy Annette 02/12/2025 10:55:03 AM >was told patient is aware of appt Referral Priority Routine Referral Appointment Date 03/02/2025 REASON FOR VISIT ANNUAL EXAM Medications Medication SIG (Take, Route, Frequency, Duration) Notes Start Date End Date Status Citalopram Hydrobromide 10 MG TAKE 1 TABLET BY MOUTH EVERY DAY Active Omeprazole 20 MG 1 capsule 1/2 to [...] a day for 7 days 12/05/2024 Not-Taking Atorvastatin Calcium 20 MG TAKE 1 TABLET BY MOUTH EVERY DAY Active Social History Tobacco Use: Social History Observation [...] ast year? No Points 0 Interpretation Negative Vital Signs Blood pressure systolic 102 mm Hg 01/12/20 25 Blood pressure diastolic 70 mm Hg 025 Height 67 in 01/11/2025 Weight 256 lbs 01/11/2025 BMI 40.09 kg/m2 01/11/2025 weight is down 2 pounds [facility] e 01-04-25 Encounters Encounter Location Date Provider Diagnosis Gareth Fabian MD [address] [place] [address] [place] [phone] 01/11/2025 Gareth Fabian Annual physical exam Z00.00 ; Nevus D22.9 ; Dysthymia F34.1 ; Hypercholesteremia E78.00 ; Colon cancer screening Z12.11 and Depression screening Z13.31 Assessments Encounter Date Diagnosis (ICD Code) Assessment Notes Treatment Notes Treatment Clinical Notes Section Notes 01/11/2025 Annual physical exam (ICD-10 - Z00.00) labs reviewed and discussed with patient 01/11/2025 Nevus (ICD-10 - D22.9) needs referral to derm. will arrange 01/11/2025 Dysthymia (ICD-10 - F34.1) stable, will continue current regiment 01/11/2025 Hypercholesteremia (ICD-10 - E78.00) stable, will contnue current regiment 01/11/2025 Colon cancer screeni ng (ICD-10 - Z12.11) guaiac negative 01/11/2025 Depression screening (ICD-10 - Z13.31) negative screen Plan Of Treatment Medication Medication Name Sig Start Date Stop Date Notes Citalopram Hydrobromide 10 MG TAKE 1 TAB LET BY MOUTH EVERY DAY Atorvastatin Calcium 20 MG TAKE 1 TABLET BY MOUTH EVERY DAY Treatment Notes Assessment Notes Annual physical exam labs reviewed and d iscussed with patient Nevus needs referral to [facility]. will arrange Dysthymia stable, will continu e current regiment Hypercholesteremia stable, will contnue current regiment Colon cancer screening guaiac negative Depression screening negative screen Referrals Referral Date Details 01/11/2025 01/11/2025, abnormal with a rash conssistant with fungal infection on buttocks and an irregular mole on back that is suspicious, [facility] [place] Next Appt Details Follow Up: 3 Months, Reason: Provider Name:Gareth galloway, 01/07/2026 07:30:00 AM, [address] [place] [address], [address], [place], [place], [phone], Provider Name:Gareth galloway, 01/14/2026 09:30:00 AM, [address] [place] [address], [address], [place], [place], [phone], Progress Notes * GALLITO CANDELARIOOB:1980 ([age] yo M)Acc No.[id number]:01/11/2025 Progress Notes Patient: DOMINICK FOOTE Provider: Vikas Fabian MD :1980 A ge:44 Y S ex:Male Date:01/11/2025 Address[address] [place], [id number] Subjective: * Chief Complaints: * A NNUAL EXAM * HPI: D epression Screening: PHQ-9 L ittle interest or pleasure in doing things N ot at all, F eeling down, depressed, or hopeless N ot at all, T rouble falling or staying asleep, or sleeping too much N ot at all, F eeling tired or having little energy N ot at all, P oor appetite or overeating N ot at all, F eeling bad about yourself or that you are a failure, or have let yourself or your family down N ot at all, T rouble concentrating on things, such as reading the newspaper or watching television N ot at all, M oving or speaking so slowly that other people could have noticed; or the opposite, being so fidgety or restless that you have been moving around a lot more than usual N ot at all, T houghts that you would be better off or of hurting yourself in some way N ot at all, T otal Score 0 . I nterpretation and Intervention D epression Screening Findings N egative, F ollow-Up for Depression : review of PHQ-9 found negative result, no follow-up needed. C ommunication Needs: Communication Needs D oes the patient have a hearing impairment N o, D oes the patient have a vision impairment? N o, D oes the patient have a cognition impairment? N o. S SIDDHARTH Questions: SDOH Questions I n the past year have you been worried about losing housing? N o, I n the past year have you or any family members you live with been unable to get any of the following when it was really needed? Check all that apply: N one. S ymptom(s): patient is a 44 yo male here for annual visit with review of recent labs and follow up of chronic issues. * ROS: G eneral/Constitutional: Change in appetite d enies. C hills d enies. F ever d enies. O phthalmologic: Blurred vision d enies. D ischarge d enies. P ain d enies. E NT: Decreased hearing d enies. S ore throat d enies.?Swollen glands d enies. E ndocrine: Cold intolerance d enies. E xcessive thirst d enies. H eat intolerance d enies. W eight loss d enies. R espiratory: Cough d enies. S hortness of breath at rest d enies. S hortness of breath with exertion d enies. W heezing d enies. C ardiovascular: Chest pain at rest d enies. C hest pain with exertion?denies. I rregular heartbeat d enies. S hortness of breath d enies. ? G astrointestinal: Abdominal pain d enies. C hange in bowel habits d enies. D iarrhea d enies. N ausea d enies. R ectal bleeding d enies. V omiting d enies . G enitourinary: Blood in urine d enies. D ifficulty urinating d enies. F requent urination d enies. M usculoskeletal: Painful joints d enies. W eakness d enies. ? S kin: Dry skin d enies. I tching d enies. D enies?Mole(s), changes in moles, new moles or any lesions of concern. D enies P hotosensitivity. R sandy d enies. N eurologic: Dizziness d enies. F ainting d enies. H eadache?denies. * Medical History: * Surgical History: * Hospitalization/Major Diagno stic Procedure: * Family History: F ather: alive 70 yrs. M other: alive 79 yrs. 3 brother(s) , 3 sister(s) . 1 son(s) . . Fathewr-Healthy Mother- Healthy, Denies mental health/substance abuse family history, Denies mental health/substance abuse family history, Denies mental health/substance abuse family history. * Social History: T obacco Use: T obacco Use/Smoking P atient is a f ormer smoker, H ow long has it been since you last smoked? > 10 years, A dditional Findings: Tobacco Non-User F ormer smoker, currently using no form of tobacco. D rugs/Alcohol: A lcohol Screen D id you have a drink containing alcohol in the past year? N o, P oints 0 , I nterpretation N egative. M iscellaneous: C affeine: yes, frequency:, 1-2 cups two times per week. Children: no. Community involvements: yes, belongs to the [employer]. Exercise: yes, daily walking the dog 5 days. Housing: owning. Living with: spouse. Marital status: . Occupation: works full-time. Pets: dog 1, cat x1. Travel outside of the [place]: no. * Medications: T akingOmeprazole 20 MG Capsule [...] List reviewed and reconciled with the patientNot-Taking/PRN Ciprofloxacin-dexAMETHasone 0.3-0.1 % Suspension 4 drops into affected ear Otic Twice a day Not-Taking/PRN Imitrex 100 MG Tablet 1 tablet at least 2 hours between doses as needed Orally Twice a day Medication List reviewed and reconciled with the patient * Allergies: N .K.D.A.yes[Allergies Verified] Objective: * Vitals: H t: 67, Wt: 256, BMI:40.09, BP:102/70, Wt-k.12. weight is down 2 pounds since 01-04-25. * P ast Orders: L ab:PSA,Total (Free>4and<10) (Order Date - 01/04/2025) (Collection Date & Time - 01/04/2025 07:00 AM) Value Reference Range PSA,Total (Free>4and<10) 0.74 0.00-4.00 - ng/ mL L ab:Hemoglobin A1c (Order Date - 01/04/2025) (Collection Date & Time - 01/04/2025 07:00 AM) Value Reference Range Hemoglobin A1c % 5.6 <6.0 - % Estimated Average Glucose 114 - mg/dL L ab:Complete Blood Count Auto Diff (Order Date - 01/04/2025) (Collection Date & Time - 01/04/2025 07:00 AM) Value Reference Range White Blood Count 9.5 4.8-10.8 - X10*3/uL Red Blood Count 5.25 4.60-5.80 - X10*6/uL Hemoglobin 16.5 14.0-18.0 - g/dl Hematocrit 47.5 42.0-52.0 - % Mean Corpuscular Volume 90.5 80.0-98.0 - fL Mean Corpuscular Hemoglobin 31.4 27.0-33.0 - pg Mean Corpuscular HGB Conc 34.7 31.0-36.0 - g/ dl Red Cell Distribution Width 12.7 11.0-16.0 - % Platelet Count 121 L 160-400 - X10*3/uL Mean Platelet Volume 13.8 H 9.4-12.4 - fL Neutrophils Percent Auto 55.3 45-73 - % Imm Gran Pct Auto 0.3 0.0-0.4 - % Lymphocytes Percent Auto 35.3 20-40 - % Monocytes Percent Auto 5.9 2-11 - % Eosinophils Percent Auto 2.4 0-4 - % Basophils Percent Auto 0.8 0-2 - % NRBC Pct Auto 0.0 0.0-0.2 - /100WBC Neutrophils Absolute Auto 5.3 2.0-8.3 - x10* 3/uL Imm Gran Abs Auto 0.03 0.00-0.03 - X10*3/uL Lymphocytes Absolute Auto 3.4 1.2-4.9 - X10* 3/uL Monocytes Absolute Auto 0.6 0.1-1.2 - X10*3/ uL Eosinophils Absolute Auto 0.2 0.0-0.4 - X10* 3/uL Basophils Absolute Auto 0.1 0.0-0.2 - X10*3/ uL NRBC Abs Auto 0.000 0.0-0.012 - X10*3/uL L ab:Comprehensive [place]. Panel Fast (Order Date - 01/04/2025) (Collection Date & Time - 01/04/2025 07:00 AM) Value Reference Range Sodium 138 135-145 - mmol/L Bilirubin Total 0.8 0.0-1.0 - mg/dL Aspartate Amino Transferase 32 5-37 - U/L Alanine Aminotransferase 25 0-40 - U/L Total Protein 7.1 6.5-8.0 - g/dL Albumin Level 3.9 3.5-5.0 - g/dL Alkaline Phosphatase 77 39-117 - U/L Potassium 3.7 3.3-5.1 - mmol/L Chloride 104 96-108 - mmol/L Carbon Dioxide 29 22-29 - mmol/L Anion Gap 9 L 12-20 - Blood Urea Nitrogen 15 9-16 - mg/dL Creatinine 0.83 0.5-1.4 - mg/dL Estimated Glomerular Filt Rate > 60 - Glucose Fasting 98 60-99 - mg/dL Calcium 8.9 8.4-10.2 - mg/dL L ab:Lipid Panel (Order Date - 01/04/2025) (Collection Date & Time - 01/04/2025 07:00 AM) Value Reference Range Triglycerides 219 H <150 - mg/dL Cholesterol 139 <200 - mg/dL LDL Cholesterol Calculated 67 <100 - mg/dL HDL Cholesterol 29 L >40 - mg/dL * Examination: G eneral Examination: GENERAL APPEARANCE: w ell developed, well nourished, in no acute distress. HEAD: n ormocephalic, atraumatic. EYES: p upils equal, round, reactive to light and accommodation, sclera non-icteric. EARS: n ormal. ORAL CAVITY: m ucosa moist. THROAT: c lear. NECK/THYROID: n kathy supple, full range of motion, no cervical lymphadenopathy, no bruits. SKIN: w arm and dry, , abnormal with a rash conssistant with fungal infection on buttocks and an irregular mole on back that is suspicious. HEART: r egular rate and rhythm, S1, S2 normal, no murmurs.? LUNGS: c lear to auscultation bilaterally. ABDOMEN: s oft, nontender, nondistended, bowel sounds present, normal, no organomegaly , no masses palpable. RECTAL EXAM: n ormal tone, no external hemorrhoids, no masses palpable, prostate normal, stool guaiac negative. MALE GENITOURINARY: c ircumcised, no penile lesions or discharge, no testicular mass, testes descended bilaterally. EXTREMITIES: n o clubbing, cyanosis, or edema. NEUROLOGIC: n onfocal, motor strength normal upper and lower extremities, sensory exam intact. Assessment: * Assessment: 1. A nnual physical exam - Z00.00 (Primary) 2 . N evus - D22.9 ?3. D ysthymia - F34.1 4 . H ypercholesteremia - E78.00 5 . C olon cancer screening - Z12.11 6 . D epression screening - Z13.31 Plan: * Treatment: 2. N evus Notes: needs referral to derm. will arrange ? Referral To:[facility] [place] Reason:abnormal with a rash conssistant with fungal infection on buttocks and an irregular mole on back that is suspicious 3. D ysthymia Continue Citalopram Hydrobromide Tablet, 10 MG, TAKE 1 TABLET BY MOUTH EVERY DAY. Notes: stable, will continue current regiment 4. H ypercholesteremia Continue Atorvastatin Calcium Tablet, 20 MG, TAKE 1 TABLET BY MOUTH EVERY DAY. Notes: stable, will contnue current regiment 5. C olon cancer screening Notes: guaiac negative 6. D epression screening Notes: negative screen * Procedure Codes: * Follow Up: 3 Months * * Sign off status: Completed true * Provider: Vikas Fabian MD Date: 0 01/11/2025 Generated for Jona dupont/Lanette/Estheritting on: 1 10/17/2024 12:08 PM EST History and Physical Notes * HPI (History of Present Illness) Category Sub-Category Detail Notes Category Not es Symptom(s) patient is a 44 yo male here for annual visit with review of recent labs and follow up of chronic issues. Depression Screening PHQ-9 Little inte rest or [...] patient have a cognition impair ment?: No Examination Category Sub-Category Detail Notes Category Not es General Examination GENERAL APPEARANCE: well dev eloped, [...] sensory exam intact SKIN: warm and dry, , abno rmal with a rash conssistant with fungal infection on buttocks and an irregular mole on back that is suspicious EXTREMITIES: no clubbing, cyanosi s, or edema MALE GENITOURINARY: circumcised, no peni le lesions or discharge, no testicular mass, testes descended bilaterally RECTAL EXAM: normal tone, no exte rnal hemorrhoids, no masses palpable, prostate normal, stool guaiac negative ORAL CAVITY: mucosa moist Consultation Request Notes Referral Date Referring Provider Referred Provider Not es 01/11/2025 Gareth Fabian, DERMATOLOGY ab normal with a rash conssistant with fungal infection on buttocks and an irregular mole on back that is suspicious
--- OUTSIDE RECORDS SUMMARY | 2025-01-15 04:13 | XMS_ITS ---
Author Organization Waldo Fabian MD Address [address] [place] [phone] Care Team Providers Care Kids Club Attendant Name Role Phone Waldo Fabian Primary Care Provider REASON FOR VISIT Derm appt Encounters Encounter Location Date Provider Diagnosis Waldo Fabian MD 10 [facility] [address] [place] [phone] 01/15/2025 Waldo Fabian Plan Of Treatment Next Appt Details Provider Name:Waldo galloway, 01/07/2026 07:30:00 AM, [address] [place] [address], Suite [facility], [place], [place], [phone], Provider Name:Waldo galloway, 01/14/2026 09:30:00 AM, [address] [place] [address], [address] [place] [address], [phone], Progress Notes * GALLITO CANDELARIOOB:1980 ([age] yo M)Acc No.[id number]:01/15/2025 Patient: DOMINICK FOOTE :1980 A ge:44 Y S ex:Male Address: [address] [facility], [place], [phone] * true * Date: Generated for Jona dupont/Lanette/Estheritting on: 10/17/2024 12:08 PM EST
--- OUTSIDE RECORDS SUMMARY | 2025-03-13 02:45 | XMS_ITS ---
Author Organization Waldo Fabian MD Address [address] [place], [place] [phone] Care Team Providers Care Business Process Engineer Name Role Phone Waldo Fabian Primary Care Provider Results Component Value Reference Range Notes Complete Blood Count Auto Di ff Reviewed date:03/13/2025 12:27:15 PM Interpretation: Performing Lab:[facility], [address] [place] [phone] Notes/Report: White Blood Count 7.8 4.8-10.8 X10*3/uL [...] Location Date Provider Diagnosis Waldo Fabian MD [address] [place] [address] [place] [phone] 03/13/2025 Waldo Fabian Thrombocytopenia D69 .6 Assessments Encounter Date Diagnosis (ICD Code) Assessment Notes Treatment Notes Treatment Clinical Notes Section Notes 03/13/2025 Thrombocytopenia (ICD-10 - D69.6) Plan Of Treatment Next Appt Details Provider Name:Waldo galloway, 01/07/2026 07:30:00 AM, [address] [place] [address], [address] [place] [address], [phone], Provider Name:Waldo galloway, 01/14/2026 09:30:00 AM, [address] [place] [address], [address] [place] [address], [phone], Progress Notes * GALLITO CANDELARIOOB:1980 ([age] yo M)Acc No.[id number]:03/13/2025 Progress Note Patient: DOMINICK FOOTE Provider: Vikas Fabian MD :1980 A ge:45 Y S ex:Male Date:03/13/2025 Address:[facility] [address] [id number] Subjective: * Chief Complaints: * 1 . [...] MD Date: 0 03/13/2025 Generated for Jona dupont/Lanette/Estheritting on: 1 10/17/2024 12:07 PM EST
--- OUTSIDE RECORDS SUMMARY | 2025-04-13 04:00 | XMS_ITS ---
Author Organization Waldo Fabian MD Address [address] [place] [phone] Care Team Providers Care Manager Rn Case Name Role Phone Ezio Fabiann Primary Care Provider Allergies No Known Allergies Results Component Value Reference Range Notes Hemoglobin A1c Reviewed date:04/13/2025 09:10:29 AM Interpretation: Performing Lab: Notes/Report: Hemoglobin A1c 5.5 Glucose, finger stick Reviewed date:04/13/2025 09:03:37 AM Interpretation: Performing Lab: Notes/Report: Value 133 REASON FOR VISIT 3 month Medications Medication SIG (Take, Route, Frequency, Duration) Notes Start Date End Date Status Imitrex 100 MG 1 tablet at least 2 hours between doses as needed Orally Twice a day for 10 days 07/17/2022 Not-Taking Ciprofloxacin-dexAMETHaso ne 0.3-0.1 % 4 drops into affected ear Otic Twice a day for 7 days 12/05/2024 Not-Taking Atorvastatin Calcium 20 MG TAKE 1 TABLET BY MOUTH EVERY DAY for 30 Active Citalopram Hydrobromide 20 MG TAKE 1 TABLET BY MOUTH EVERY DAY for 30 Active Indomethacin 50 MG TAKE 1 CAPSULE BY [facility] TWICE DAILY WITH FOOD OR MILK for 30 Active Omeprazole 20 MG 1 capsule 1/2 to 1 h our before morning meal Orally Once a day for 30 day(s) Active Vital Signs Blood pressure systolic 102 mm Hg 04/13/20 25 Blood pressure diastolic 78 mm Hg 025 Height 67 in 04/13/2025 Weight 252 lbs 04/13/2025 BMI 39.46 kg/m2 04/13/2025 Encounters Encounter Location Date Provider Diagnosis Waldo Fabian MD [address] [place] [address] [place] [phone] 04/13/2025 Waldo Fabian Prediabetes R73.03 a nd Thrombocytopenia D69.6 Assessments Encounter Date Diagnosis (ICD Code) Assessment Notes Treatment Notes Treatment Clinical Notes Section Notes 04/13/2025 Prediabetes (ICD-10 - R73.03) doingwell on diet, no need for medicatin at this time 04/13/2025 Thrombocytopenia (ICD-10 - D69.6) stable with minimal drop, will continue to monitor Plan Of Treatment Treatment Notes Assessment Notes Prediabetes doingwell on diet, n o need for medicatin at this time Thrombocytopenia stable with minimal drop, will continue to monitor Next Appt Details Provider Name:Waldo galloway, 01/07/2026 07:30:00 AM, [address] [place] [address], [address] [place] [address], [phone], Provider Name:Waldo galloway, 01/14/2026 09:30:00 AM, [address] [place] [address], Suite [facility], [place], [place], [phone], Progress Notes * MICHAEL CANDELARIOMARTHAOB:1980 ([age] yo M)Acc No.[id number]:04/13/2025 Progress Notes Patient: DOMINICK FOOTE Provider: Vikas Fabian MD :1980 A ge:45 Y S ex:Male Date:04/13/2025 Address:[address] [place], [id number] Subjective: * Chief Complaints: * 3 month * HPI: S ymptom(s): patient is a 45 yo male here for 3 month follow up visit/ has plateued and now started diet again. * ROS: G eneral/Constitutional: Denies C hills. D enies F atigue. D enies F ever. D enies H eadache. E NT: Denies S ore throat. E ndocrine: Denies D ifficulty sleeping. D enies D izziness.?Denies E xcessive sweating. D enies E xcessive thirst. D enies F requent urination. R espiratory: Denies C ough. D enies S hortness of breath at rest. D enies S hortness of breath with exertion. C ardiovascular: Denies C hest pain at rest. D enies C hest pain with exertion. D enies D izziness. D enies P alpitations. D enies S hortness of breath. G astrointestinal: Denies D iarrhea. D enies N ausea. * Medical History: * Surgical History: * Hospitalization/Major Diagno stic Procedure: * Medications: T akingOmeprazole 20 MG Capsule Delayed Release 1 capsule 1/2 to 1 hour before morning meal Orally Once a day Indomethacin 50 MG Capsule TAKE 1 CAPSULE BY MOUTH TWICE DAILY WITH FOOD OR MILK Citalopram Hydrobromide 20 MG Tablet TAKE 1 TABLET BY MOUTH EVERY DAY Atorvastatin Calcium 20 MG Tablet TAKE 1 TABLET BY MOUTH EVERY DAY Taking Omeprazole 20 MG Capsule Delayed Release 1 capsule 1/2 to 1 hour before morning meal Orally Once a day Taking Indomethacin 50 MG Capsule TAKE 1 CAPSULE BY MOUTH TWICE DAILY WITH FOOD OR MILK Taking Citalopram Hydrobromide 20 MG Tablet TAKE 1 TABLET BY MOUTH EVERY DAY Taking Atorvastatin Calcium 20 MG Tablet TAKE [...] Vitals: H t: 67, Wt: 252, BMI:39.46, BP:102/78, Wt-k.31. * P ast Orders: L ab:Complete Blood Count Auto Diff (Order Date - 03/13/2025) (Collection Date & Time - 03/13/2025 07:45 AM) Value Reference Range White Blood Count 7.8 4.8-10.8 - X10*3/uL Red Blood Count 5.24 4.60-5.80 - X10*6/uL Hemoglobin 16.7 14.0-18.0 - g/dl Hematocrit 47.1 42.0-52.0 - % Mean Corpuscular Volume 89.9 80.0-98.0 - fL Mean Corpuscular Hemoglobin 31.9 27.0-33.0 - pg Mean Corpuscular HGB Conc 35.5 31.0-36.0 - g/ dl Red Cell Distribution Width 12.5 11.0-16.0 - % Platelet Count 127 L 160-400 - X10*3/uL Mean Platelet Volume 13.7 H 9.4-12.4 - fL Neutrophils Percent Auto 54.8 45-73 - % Imm Gran Pct Auto 0.3 0.0-0.4 - % Lymphocytes Percent Auto 36.3 20-40 - % Monocytes Percent Auto 5.5 2-11 - % Eosinophils Percent Auto 2.2 0-4 - % Basophils Percent Auto 0.9 0-2 - % NRBC Pct Auto 0.0 0.0-0.2 - /100WBC Neutrophils Absolute Auto 4.3 2.0-8.3 - x10* 3/uL Imm Gran Abs Auto 0.02 0.00-0.03 - X10*3/uL Lymphocytes Absolute Auto 2.8 1.2-4.9 - X10* 3/uL Monocytes Absolute Auto 0.4 0.1-1.2 - X10*3/ uL Eosinophils Absolute Auto 0.2 0.0-0.4 - X10* 3/uL Basophils Absolute Auto 0.1 0.0-0.2 - X10*3/ uL NRBC Abs Auto 0.000 0.0-0.012 - X10*3/uL * Examination: G eneral Examination: GENERAL APPEARANCE: a lert, well hydrated, in no distress.? HEAD: n ormocephalic. SKIN: g ood turgor. HEART: n o murmurs, rubs, gallops, regular rate and rhythm.? LUNGS: n o wheezes, rales, rhonchi, good air movement, clear to auscultation bilaterally. ABDOMEN: s oft, nontender, nondistended. ? Assessment: * Assessment: 1. P rediabetes - R73.03 (Primary) 2 . T hrombocytopenia - D69.6 Plan: * Treatment: Value Reference Range H emoglobin A1c 5.5 ?LAB: Glucose, finger stick (Collection Date & Time - 04/13/2025)* Value Reference Range V alue 133 Notes: doingwell on diet, no need for medicatin at this time?? 2.?Thrombocytopenia? Notes: stable with minimal drop, will continue to monitor?? * Procedure Codes: 8 2947 ASSAY, GLUCOSE, BLOOD QUANT, Modifiers: QW 60894 GLYCATED HEMOGLOBIN TEST, Modifiers: QW * * Sign off status: Completed true * Provider: Vikas Fabian MD Date: 0 04/13/2025 Generated for Jona dupont/Lanette/eTransmitting on: 1 10/17/2024 12:07 PM EST History and Physical Notes * HPI (History of Present Illness) Category Sub-Category Detail Notes Category Not es Symptom(s) patient is a 45 yo male here for 3 month follow up visit/ has plateued and now started diet again. Examination Category Sub-Category Detail Notes Category Not es General Examination GENERAL APPEARANCE: alert, w ell hydrated, in no distress HEAD: normocephalic HEART: no murmurs, rubs, ga llops, regular rate and rhythm LUNGS: no wheezes, rales, r honchi, good air movement, clear to auscultation bilaterally ABDOMEN: soft, nontender, non distended SKIN: good turgor
--- OUTSIDE RECORDS SUMMARY | 2025-07-20 02:30 | XMS_ITS ---
Author Organization Gareth Fabian MD Address [address] [place], [place] [phone] Care Team Providers Care Waterside Worker Name Role Phone Gareth Fabian Primary Care Provider Results Component Value Reference Range Notes Liver Panel Reviewed date:07/20/2025 02:08:40 PM Interpretation: Performing Lab:[facility], [address] [place] [phone] Notes/Report: Bilirubin Total 0.8 0.0-1.0 mg/dL Bilirubin Direct 0.3 0.0-0.5 mg/dL Aspartate Amino Transferase 49 5-37 U/L Alanine Aminotransferase 33 0-40 U/L Total Protein 7.5 6.5-8.0 g/dL Albumin Level 4.6 3.5-5.0 g/dL Alkaline Phosphatase 87 39-117 U/L Lipid Panel with Reflex Reviewed date:07/20/2025 02:09:28 PM Interpretation: Performing Lab:[facility], [address] [place] [phone] Notes/Report: Triglycerides 181 <150 mg/dL Desirable Triglyceride: less than 150 mg/dL Borderline High Triglyceride 150-199 mg/dL High Triglyceride: 200-499 mg/dL Very High Triglyceride: greater than or equal to 5OO mg/dL Cholesterol 143 <200 mg/dL Desirable Cholesterol: less than 200 mg/dL Borderline High Cholesterol: 200-239 mg/dL High Cholesterol: greater than 239 mg/dL LDL Cholesterol Calculated 77 <100 mg/dL Desirable LDL: less than 100 mg/dL Near Optimal/Above Optimal LDL: 110-129 mg/dL Borderline High LDL: 130-159 mg/dL High LDL: 160-189 mg/dL Very High LDL: greater than or equal to 190 mg/dL HDL Cholesterol 30 >40 mg/dL Desirable HDL: greater than 40 mg/dL Note: This HDL assay may give artificially low results in patients with liver disease. REASON FOR VISIT fasting lipids Encounters Encounter Location Date Provider Diagnosis Gareth Fabian MD [address] [place] [phone] 07/20/2025 Gareth Fabian Pure hypercholestero lemia E78.00 Assessments Encounter Date Diagnosis (ICD Code) Assessment Notes Treatment Notes Treatment Clinical Notes Section Notes 07/20/2025 Pure hypercholesterolemia (ICD-10 - E78.00) Plan Of Treatment Next Appt Details Provider Name:Gareth galloway, 01/07/2026 07:30:00 AM, [address] [place] [address], [address], [phone], Provider Name:Gareth galloway, 01/14/2026 09:30:00 AM, [address] [place] [address], [address], [phone], Progress Notes * KODAK MICHAELMARTHAOB:1980 ([age] yo M)Acc No.[id number]:07/20/2025 Progress Note Patient: DOMINICK FOOTE Provider: Vikas Fabian MD :1980 A ge:45 Y S ex:Male Date:07/20/2025 [facility] [facility] [id number] Subjective: * Chief Complaints: * 1 . Fasting lipids. * Medical History: Objective: * Vitals: Assessment: * Assessment: 1. P ure hypercholesterolemia - E78.00 (Primary) Plan: * Treatment: * Procedure Codes: 3 6415 VENIPUNCT, ROUTINE* * * The named appointment provid er may or may not be the originator of this progress note, and it is not deemed complete until electronically signed by the appointment provider. Sign off status: Pending * Provider: Vikas Fabian MD Date: 09/19/2024 Generated for Jona dupont/Lanette/Estheritting on: 10/17/2024 12:07 PM EST
--- OUTSIDE RECORDS SUMMARY | 2025-07-27 04:00 | XMS_ITS ---
Author Organization Waldo Fabian MD Address [address] [place] [phone] Care Team Providers Care Extension Work Director Name Role Phone Rui Waldo Primary Care Provider [phone] Allergies No Known Allergies REASON FOR VISIT 6 month, Getting a flu vac at work Medications Medication SIG (Take, Route, Frequency, Duration) [...] Indomethacin 50 MG TAKE 1 CAPSULE BY [facility] TWICE DAILY WITH FOOD OR MILK for 30 Not-Taking Ciprofloxacin-dexAMETHaso ne 0.3-0.1 % 4 drops into affected ear Otic Twice a day for 7 days 12/05/2024 Not-Taking Atorvastatin Calcium 20 MG TAKE 1 TABLET BY MOUTH EVERY DAY Active Vital Signs Blood pressure systolic 100 mm Hg 07/27/20 25 Blood pressure diastolic 70 mm Hg 025 Height 67 in 07/27/2025 Weight 241 lbs 07/27/2025 BMI 37.74 kg/m2 07/27/2025 weight is down 11 pounds sin ce 8-1-25 Encounters Encounter Location Date Provider Diagnosis Waldo Fabian MD [address] [place] [address] [place] [id number] 07/27/2025 Waldo Fabian Pure hypercholestero lemia E78.00 and Prediabetes R73.03 Assessments Encounter Date Diagnosis (ICD Code) Assessment Notes Treatment Notes Treatment Clinical Notes Section Notes 07/27/2025 Pure hypercholesterolemia (ICD-10 - E78.00) doing well. triglycerides slightly high, will continue current regiment and will contnue to monitor 07/27/2025 Prediabetes (ICD-10 - R73.03) doing great, no need for medication at this time Plan Of Treatment Medication Medication Name Sig Start Date Stop Date Notes Atorvastatin Calcium 20 MG TAKE 1 TABLET BY MOUTH EVERY DAY Treatment Notes Assessment Notes Pure hypercholesterolemia doing well. tr iglycerides slightly high, will continue current regiment and will contnue to monitor Prediabetes doing great, no need for medication at this time Next Appt Details Provider Name:Waldo galloway, 01/07/2026 07:30:00 AM, [address] [place] [address], [address], [phone], Provider Name:Waldo galloway, 01/14/2026 09:30:00 AM, [address] [place] [address], [place] [address], [place], [place], [phone], Progress Notes * GALLITO CANDELARIOOB:1980 ([age] yo M)Acc No.[id number]:07/27/2025 Progress Notes Patient: DOMINICK FOOTE Provider: Vikas Fabian MD :1980 A ge:45 Y S ex:Male Date:07/27/2025 Address[address], [id number] Subjective: * Chief Complaints: * 1 . 6 month. 2. Getting a flu vac at work. * HPI: S ymptom(s): patient is a 45 yo male here for 6 month follow up. D epression Screening: PHQ-9 L ittle interest [...] at all, T otal Score 0 . * ROS: G eneral/Constitutional: Denies C hills. D enies F atigue. D enies F ever. D enies H eadache. E NT: Denies S ore throat. R espiratory: Denies C ough. D enies S hortness of breath at rest. D enies S hortness of breath with exertion. G astrointestinal: Denies D iarrhea. D enies N ausea. * Medical History: M edical History Verified. * Medications: T aking Omeprazole 20 MG Capsule Delayed Release 1 capsule 1/2 to 1 hour before morning meal Orally Once a day , Taking Citalopram Hydrobromide 20 MG Tablet TAKE 1 TABLET BY MOUTH EVERY DAY , Taking Atorvastatin Calcium 20 MG Tablet TAKE 1 TABLET BY MOUTH EVERY DAY , Not-Taking/PRN Indomethacin 50 MG Capsule TAKE 1 CAPSULE BY MOUTH TWICE DAILY WITH FOOD OR MILK , Not-Taking/PRN Ciprofloxacin-dexAMETHasone 0.3-0.1 % Suspension 4 drops into affected ear Otic Twice a day , Not-Taking/PRN Imitrex 100 MG Tablet 1 tablet at least 2 hours between doses as needed Orally Twice a day , Medication List reviewed and reconciled with the patient * Allergies: N .K.D.A. Objective: * Vitals: H t: 67, Wt: 241, BMI:37.74, BP:100/70, Wt-k.32. weight is down 11 pounds since 04-13-25. * Examination: G eneral Examination: GENERAL APPEARANCE: a lert, well hydrated, in no distress.? HEAD: n ormocephalic. SKIN: g ood turgor. HEART: n o murmurs, rubs, gallops, regular rate and rhythm.? LUNGS: n o wheezes, rales, rhonchi, good air movement, clear to auscultation bilaterally. ABDOMEN: n o hepatosplenomegaly. Assessment: * Assessment: 1. P ure hypercholesterolemia - E78.00 (Primary) 2 . P rediabetes - R73.03? Plan: * Treatment: 2. P rediabetes Notes: doing great, no need for medication at this time * * The named appointment provid er may or may not be the originator of this progress note, and it is not deemed complete until electronically signed by the appointment provider. Sign off status: Pending * Provider: Vikas Fabian MD Date: 09/26/2024 Generated for Jona dupont/Lanette/Isela on: 10/17/2024 12:08 PM EST History and Physical Notes * HPI (History of Present Illness) Category Sub-Category Detail Notes Category Not es Depression Screening PHQ-9 Little inte rest or [...] way: Not at all Total Score: 0 Examination Category Sub-Category Detail Notes Category Not es General Examination GENERAL APPEARANCE: alert, w ell hydrated, in no distress HEAD: normocephalic HEART: no murmurs, rubs, ga llops, regular rate and rhythm LUNGS: no wheezes, rales, r honchi, good air movement, clear to auscultation bilaterally ABDOMEN: no hepatosplenomegal y SKIN: good turgor
--- NOTE | 2025-08-16 10:11 | MHC.OFFVIS ---
Vital Signs 08/16/25 10:13 Height 5 ft 7 in Weight 247 lb 12.793 oz BMI 38.8 BP 100/68 Blood Pressure Location Lt brachial Position Sitting Pulse 67 Pulse Source Pulse Oximeter Pulse Oximetry (%) 98 Oxygen Delivery Method Room Air Intake Visit Reasons: Hypogonadism Intake Note: Patient presents today for Hypogonadism follow up. Rn Transplant Required: No Accompanied by: Self / Same As Patient Allergies No Known Allergies Allergy (Verified 08/16/25 10:14) HPI Comments Details: 45 YO Male with PMHx HLD who is seen in F/U for hypogonadotropic hypogonadism and gynecomastia. He was initially referred to us due to gynecomastia. Full lab eval revealed hypogonadotropic hypogonadism. At that time he did report difficulty conceiving for a few years. Did have semen analysis which he reports revealed low sperm counts. We discussed the diagnosis of hypogonadism, and the need for pituitary MRI as well as sleep study and full pituitary lab panel. These were all ordered, but he was subsequently lost to F/U. He then re-established care in late Sep 2019. Full Pituitary panel was assessed which revealed low am cortisol, and also hypogonadotropic hypogonadism. Labs 10/26/2019 ACTH 18, Cortisol 9.4, FS 5.1, LH 5.3, Total Testosterone 76, Free Testosterone 19.3. He underwent a cosyntropin stimulation test which was WNL with appropriate response. He subsequently had a pituitary MRI which revealed asymmetric pneumatization of the sphenoid sinus with asymmetric left downsloping of the pituitary gland, and deviation of the infundibulum slightly to the left. There was also deviation of the optic chiasm to the left. It appeared this pathology had been present since 2009. He was referred for formal visual field testing and also to Neurosurgeon Dr. Smitha Zimmer. Formal visual taylor were WNL, and Neurosurgery recommended no surgical intervention, and just surveillance MRI yearly. Repeat labs reveal low Total testosterone, with low normal SHBG, and Free testosterone WNL, though low normal. He reports good libido. Does have am erection and is able to achieve erection when desired. Unsure if he has RUPA. I did ask him to have a sleep study but he has not done this as of yet. Reports good sense of smell. He is not using any OTC supplements or herbs. Otherwise he has no complaints today. Pituitary MRI 11/07/2019: On the focused imaging of the sella, the floor of the bony sella is slightly downward and to the left secondary to asymmetric pneumatization of the sphenoid sinus. This results in some asymmetric left downsloping of the pituitary gland, and deviation of the infundibulum slightly to the left. This morphology is noted on the prior exams, as far back as 2009, and is not changed. No hypoenhancing lesions are seen within the substance of the pituitary gland to suggest underlying adenoma. The optic chiasm is also slightly deviated to the left. The suprasellar cistern is otherwise unremarkable. The cavernous sinuses are patent. Labs: Laboratory Tests 02/04/21 02/04/21 02/04/21 09:22 09:22 09:22 Hgb 14.2 Hct 41.3 L Creatinine Estimated GFR Triglycerides Cholesterol LDL Cholesterol, Calc HDL Cholesterol Prostate Specific Ag 0.52 FSH 7.7 Luteinizing Hormone 6.4 Total Testosterone 142 L Fr Testosterone Dialys 36.6 Sex Hormone Bind Glob 15 04/18/21 Unknown Hgb Hct Creatinine 0.85 Estimated GFR > 60 Triglycerides 167 Cholesterol 162 LDL Cholesterol, Calc 90 HDL Cholesterol 39 Prostate Specific Ag FSH Luteinizing Hormone Total Testosterone Fr Testosterone Dialys Sex Hormone Bind Glob Was , On testosterone 100 mg Qwkly . No loss of libido. Some energy loss, Does snore but has sleep study next mo. No children. Not looking to father children . No osteoporotic fx Was diagnosed with sleep apnea . Using CPAP mask. g . On intramuscular testosterone 100 mg Q weekly . No worsening sleep apnea. No change in urine stream. Libido is good as his energy throughout injection cycle [facility] Medical History (Updated 08/13/23 @ 14:03 by Dawn Alaniz) Gynecomastia Pituitary adenoma Hypogonadotropic hypogonadism Surgical History Hx of removal of cyst Hx of hernia repair Hx of foot surgery Family History Father Unknown family medical history Mother Breast cancer Stroke Social History Household Members: Family Alcohol intake: former Comment: Sober for 2 years Patient Tobacco Use Status: Never used Tobacco Physical Exam Vital Signs: Last Vital Signs Pulse 67 08/16/25 10:13 BP 100/68 08/16/25 10:13 Pulse Ox 98 08/16/25 10:13 Oxygen Delivery Method Room Air 08/16/25 10:13 BMI result Body Mass Index 38.8 Assessment & Plan Assessment & Plan (1) Hypogonadotropic hypogonadism: Code(s): E23.0 - Hypopituitarism Category: Medical Plan: This is a 45-year-old male with a history of secondary hypogonadism and gynecomastia with workup revealing structural pituitary problems but no mass. Currently on intramuscular testosterone 100 mg q.week. peak testosterone level was normal and adequate Plan is to check testosterone peak and trough and CBC and adjust testosterone accordingly Orders: Orders Testosterone, Free/Total Today E23.0 - Hypopituitarism Testosterone, Free/Total 1 Week E23.0 - Hypopituitarism Coding Level of Care Code Est Pt Level 3 (77063) Diagnoses Hypogonadotropic hypogonadism E23.0
[2025-08-16 10:13] VITALS: BP 100/68; PULSE 67; O2SAT 98; BMI 38.8
--- OUTSIDE RECORDS SUMMARY | 2025-08-16 12:08 | XMS_ITS | Clinical Summary ---
Author Organization [facility] Address [address] [place] [phone] Phone Care Team Providers Care Title One Kindergarten Teacher Name Role Phone Waldo Fabian MD Primary [...] Medical Devices Not on [place] [address] BLUE CROSS OUT OF STATE PPO BLUE [employer]OSS OUT OF STATE PPO [employer]OSS OUT OF STATE PPO BLUE [employer]OSS OUT OF STATE PPO BLUE CROSS OUT OF STATE PPO BLUE CROSS OUT OF STATE PPO BLUE CROSS OUT OF STATE PPO Care Teams Title One Kindergarten Teacher Relationship Specialty Start Date End Date Waldo Fabian MD [address] [place] [address] [place] [address] PCP - General Internal Medicine 11/17/19 Additional Source Comments The information contained in this document represents components of the legal health record. It is not the complete legal health record.[facility]
== END 2025-08-16 10:28 | disposition home or self-care (01) ==
LOC: HO.ENCR 10:08
PROVIDERS: PCP Internal Medicine; Visit Provider Internal Medicine Endocrinology, Diabetes & Metabolism
DX: E23.0 Hypopituitarism (principal)
CPT/HCPCS: 99213